=== PATIENT | male | born 1950 | race Caucasian/White ===

== ENCOUNTER 2024-02-03 21:20 | Inpatient (IN) ==
--- NOTE | 2024-02-03 22:02 | XRay Report ---
XR chest 1V portable CLINICAL HISTORY: Dyspnea TECHNIQUE: Single frontal radiograph of the chest was obtained. Comparison: Comparison is made to CT chest 12/07/2023 FINDINGS: No lines and tubes are seen. The cardiomediastinal silhouette is normal. Emphysema and interstitial t hickening are seen. Left lower lung airspace opacity seen. No evidence of pleural effusion or pneumot horax. IMPRESSION: 1. Left lower lung airspace opacity. This may represent atelectasis, pneumonia, and/or aspiration. 2. Emphysema and interstitial thickening. ACT 112: Negative or not required by law. Electronically signed by: Ad Travis M.D. 02/03/2024 10:00 PM
--- NOTE | 2024-02-03 22:15 | Emergency Department Note ---
Impression & Plan Hypoxia ADMIT ED Provider Note HPI: History obtained from patient. The patient is a 73-year-old gentleman who presents from the [facility] over concern for shortness of breath. Patient has a history of COPD, he is on 5 L nasal cannula oxygen at baseline. Patient states today he felt some increased shortness of breath and was noted to have oxygen saturations in the high 70s and therefore was sent to the ER to be assessed. Patient denies any chest pain, states he has a chronic cough, denies any recent fever. On arrival here to the ED the patient is hemodynamically stable now on 10 L oxygen mask with a saturation of 96%. Patient is afebrile on arrival, he is mildly tachycardic but arrives with stable blood pressure at 128/92, patient otherwise appears to be in no acute distress on my initial assessment. ROS: - Per HPI Differential Diagnosis: Pneumonia, COPD exacerbation, pulmonary edema, acute coronary syndrome, pulmonary embolism, amongst other potential pathologies. *Outpatient medications and allergy history reviewed. PE: General: Alert, frail-appearing, no acute distress HEENT: Normocephalic, trachea midline Eyes: Extraocular eye movement is intact, no scleral erythema Pulmonary: Diminished left-sided breath sounds with mild crackles at the left base, no wheezing Cardio: Regular rate and rhythm GI: Abdomen is soft to palpation : No suprapubic tenderness MSK: No evidence of trauma or malformation of the extremities, no edema Skin: No evidence of rash Neuro: Alert, no focal deficits Psychiatric: Cooperative INDEPENDENT INTERPRETATIONS: patient monitor: (As interpreted by myself): - An order was placed for continuous cardiac monitoring - Patient was noted to be in sinus rhythm with a rate of 95 EKG: (As interpreted by myself): Rate: 112 Rhythm: Sinus tachycardia Intervals: Within normal limits ST changes: No ST elevation Time: 2144 Chest x-ray: (As interpreted by myself): Left-sided pneumonia Interventions provided in ED: -IV cefepime, IV azithromycin Medical Decision Making: IV was established and lab work obtained, patient was placed on clinical research monitor. Lab work shows a leukocytosis of 13.53, hemoglobin is stable at 13.4, platelet count is normal, CMP does not show any evidence of any critical findings, troponin is negative, venous blood gas shows slightly alkalotic pH is 7.44, pCO2 is normal. Viral panel testing was obtained and is negative I did briefly turn the patient's oxygen down to his baseline 5 L and he had a desaturation to 87% at this level, he was therefore increased again to 10 L. He was started on IV cefepime and IV azithromycin after blood cultures were drawn. Patient does have a left-sided pneumonia on chest x-ray per my interpretation. I discussed the patient's presentation with the on-call hospitalist, Dr. Lantigua, and the patient was accepted for further management on an inpatient basis. Consultants/Discussions held with other healthcare providers: -Hospitalist, Dr. Lantigua Diagnosis: 1. Hypoxia, acute 2. Left-sided pneumonia, acute 3. Leukocytosis, acute 4. 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) Medical History (Updated 02/04/24 @ 01:07 by Urban Paulson DO) GERD (gastroesophageal reflux disease) Hypothyroid Diabetes Hypertension Personal history of colonic polyps Pulmonary fibrosis Vitamin D deficiency Surgical History (Updated 02/04/24 @ 00:47 by Daylin Lantigua DO) History of hernia repair History of cholecystectomy Family History (Updated 02/04/24 @ 00:46 by Daylin Lantigua DO) Brother Cancer Lung cancer Mother Cancer Breast cancer Social History Smoking Status: Former smoker Tobacco Type: Cigarettes Age Started Using Tobacco: 8; Age Quit Using Tobacco: 65; packs per day: 2; Second Hand Exposure: Yes; Preferred Language: Welsh Feels Safe at Home: Yes Allergies Allergies Allergy/AdvReac Type Severity Reaction Status Date / Time NKDA Allergy 0 Uncoded 02/03/24 22:50 Home Meds Home Medications Medication Instructions Recorded Confirmed albuterol sulfate 90 mcg/actuation 2 puff inhalation QID PRN 02/03/24 02/03/24 aerosol inhaler Shortness Of Breath Or Wheezing amlodipine 10 mg tablet 10 mg PO DAILY 02/03/24 02/03/24 cholecalciferol (vitamin D3) 25 50 mcg PO DAILY 02/03/24 02/03/24 mcg (1,000 unit) capsule (Vitamin D3) docusate sodium 100 mg capsule 100 mg PO BID 02/03/24 02/03/24 fluticasone 500 mcg-salmeterol 50 1 inh inhalation BID 02/03/24 02/03/24 mcg/dose blistr powdr for inhalation (Wixela Inhub) glipizide 10 mg tablet 10 mg PO BID 02/03/24 02/03/24 guaifenesin 400 mg tablet 400 mg PO TID 02/03/24 02/03/24 ibuprofen 600 mg tablet 600 mg PO TID PRN Pain 02/03/24 02/03/24 levothyroxine 88 mcg tablet 88 mcg PO DAILY 02/03/24 02/03/24 metformin 850 mg tablet 850 mg PO BID 02/03/24 02/03/24 omeprazole 20 mg tablet,delayed 20 mg PO DAILY 02/03/24 02/03/24 release oxycodone 5 mg tablet 10 mg PO TID 02/03/24 02/03/24 rosuvastatin 10 mg tablet 10 mg PO HS 02/03/24 02/03/24 umeclidinium 62.5 mcg/actuation 1 inh inhalation DAILY 02/03/24 02/03/24 blister powder for inhalation (Incruse Ellipta) Results & Data (ED) Vital Signs Vital Signs - 24 hr 02/03/24 21:29 02/03/24 21:30 02/03/24 21:30 Temperature 37.3 C Temperature Source Oral Pulse Rate Pulse Rate [Apical] 118 H Respiratory Rate 18 Respiratory Effort / Characteristics Short of Breath Blood Pressure Blood Pressure [Right Arm] 128/92 Blood Pressure Mean Blood Pressure Mean [Right Arm] 104 Pulse Oximetry 95 Oxygen Delivery Method Non-rebreather Non-rebreather Oxygen Flow Rate 15 Sepsis Recent Fever Within 48 Hours No Sepsis New/Unexplained Change in Mental Status No Sepsis Action Taken by Nursing No Action Required 02/03/24 21:30 02/03/24 21:44 02/03/24 21:55 Temperature Temperature Source Pulse Rate 110 H 108 H Pulse Rate [Apical] Respiratory Rate 18 Respiratory Effort / Characteristics Blood Pressure Blood Pressure [Right Arm] Blood Pressure Mean Blood Pressure Mean [Right Arm] Pulse Oximetry 96 Oxygen Delivery Method Non-rebreather Oxymask Oxygen Flow Rate 10 Sepsis Recent Fever Within 48 Hours Sepsis New/Unexplained Change in Mental Status Sepsis Action Taken by Nursing 02/03/24 23:00 02/03/24 23:23 Temperature Temperature Source Pulse Rate 106 H Pulse Rate [Apical] 105 H Respiratory Rate 18 19 Respiratory Effort / Characteristics Blood Pressure 128/90 Blood Pressure [Right Arm] 128/90 Blood Pressure Mean 100 Blood Pressure Mean [Right Arm] 102 Pulse Oximetry 90 91 Oxygen Delivery Method Oxymask Oxymask Oxygen Flow Rate 10 10 Sepsis Recent Fever Within 48 Hours Sepsis New/Unexplained Change in Mental Status Sepsis Action Taken by Nursing Laboratory Data 02/03/24 22:00 02/03/24 22:00 Lab Results 02/03/24 02/03/24 02/03/24 Range/Units 21:30 22:00 22:50 WBC 13.53 H (4.8-10.8) K/ul RBC 4.43 L (4.70-6.10) M/uL Hgb 13.4 L (14.0-18.0) g/dl Hct 39.1 L (42.0-52.0) % MCV 88.3 (80.0-100.0) fL MCH 30.2 (25.0-34.0) pg MCHC 34.3 (32.0-36.0) g/dL RDW Std Deviation 43.2 (36.4-46.3) fL RDW Coeff of Chevy 13.3 (11.5-14.5) % Plt Count 360 (130-400) K/uL MPV 10.1 (9.4-12.4) fL Immature Gran % (Auto) 0.4 % Neut % (Auto) 71.6 % Lymph % (Auto) 13.8 % Wells % (Auto) 7.5 % Eos % (Auto) 6.3 % Baso % (Auto) 0.4 % Neut # (Auto) 9.68 H (1.40-6.50) K/uL Lymph # (Auto) 1.87 (1.20-3.40) K/uL Wells # (Auto) 1.02 H (0.11-0.59) K/uL Eos # (Auto) 0.85 H (0.00-0.50) K/uL Baso # (Auto) 0.06 (0.00-0.20) K/uL Immature Gran # (Auto) 0.05 (0.01-0.20) K/uL VBG pH 7.44 H (7.36-7.41) VBG pCO2 43 (38-50) mmHg VBG pO2 50 mmHg VBG HCO3 29 mmol/L VBG O2 Saturation 83.2 % VBG Base Excess 4.4 mEq/L Sodium 138 (136-145) mmol/L Potassium 3.5 (3.5-5.1) mmol/L Chloride 102 (98-107) mmol/L Carbon Dioxide 26 (21-32) mmol/L Anion Gap 10 (3-11) BUN 18 (6-23) mg/dl Creatinine 0.97 (0.6-1.4) mg/dl Est Cr Clr Drug Dosing 67.8 ml/min Est GFR ( Amer) 89.4 ml/min Est GFR (Non-Af Amer) 77.1 ml/min BUN/Creatinine Ratio 18.6 (10-20) Glucose 106 H (70-99(Fasting)) mg/dl Calcium 8.8 (8.6-10.3) mg/dl Total Bilirubin 0.4 (0.2-1.0) mg/dl AST 24 (13-39) U/L ALT 22 (7-52) U/L Alkaline Phosphatase 321 H (34-104) U/L Troponin I High Sens 7.4 (0-20) pg/ml Total Protein 6.8 (6.0-8.3) gm/dl Albumin 3.7 (3.4-5.0) gm/dl Globulin 3.1 (2.5-4.0) gm/dl Albumin/Globulin Ratio 1.2 (0.9-2) Adenovirus (PCR) Not Detected (NotDetected) B. pertussis DNA (PCR) Not Detected (NotDetected) B.parapertussis DNA PCR Not Detected (NotDetected) C. pneumoniae DNA (PCR) Not Detected (NotDetected) Coronavirus OC43 (PCR) Not Detected (NotDetected) Coronavirus HKU1 (PCR) Not Detected (NotDetected) Coronavirus 229E (PCR) Not Detected (NotDetected) SARS-CoV-2 (PCR) Not Detected (NotDetected) Coronavirus NL63 (PCR) Not Detected (NotDetected) Human Metapneumovir PCR Not Detected (NotDetected) Influenza Type A (PCR) Not Detected (NotDetected) Influenza Type B (PCR) Not Detected (NotDetected) M. pneumoniae (PCR) Not Detected (NotDetected) Parainfluenza 1 (PCR) Not Detected (NotDetected) Parainfluenza 2 (PCR) Not Detected (NotDetected) Parainfluenza 3 (PCR) Not Detected (NotDetected) Parainfluenza 4 (PCR) Not Detected (NotDetected) RSV (PCR) Not Detected (NotDetected) Entero/Rhino (PCR) Not Detected (NotDetected) Administered Medications Azithromycin 500 mg/ Dextrose 255 mls @ 125 mls/hr IV NOW ONE Stop: 02/04/24 01:14 Last Admin: 02/03/24 23:44 Dose: 125 mls/hr Documented By: TIFFANIE Discontinued Medications Cefepime HCl 1,000 mg/ Syringe 10 mls @ 5 mls/min IV NOW STA; Protocol Stop: 02/03/24 22:14 Last Admin: 02/03/24 22:48 Dose: 5 mls/min Documented By: JOSE DE JESUS Imaging Data Radiologist's Impression: Chest X-Ray 02/03/24 21:35 XR chest 1V portable CLINICAL HISTORY: Dyspnea TECHNIQUE: Single frontal radiograph of the chest was obtained. Comparison: Comparison is made to CT chest 12/07/2023 FINDINGS: No lines and tubes are seen. The cardiomediastinal silhouette is normal. Emphysema and interstitial thickening are seen. Left lower lung airspace opacity seen. No evidence of pleural effusion or pneumothorax. IMPRESSION: 1. Left lower lung airspace opacity. This may represent atelectasis, pneumonia, and/or aspiration. 2. Emphysema and interstitial thickening. ACT 112: Negative or not required by law. Electronically signed by: Ad Travis M.D. 02/03/2024 10:[address] 02/03/24 23:38 Exam(s): CT CHEST Without Contrast EXAM: CT Chest Without Intravenous Contrast CLINICAL HISTORY: Pneumonia. TECHNIQUE: Axial computed tomography images of the chest without intravenous contrast. CTDI is 27.25 mGy and DLP is 532.98 mGy-cm. Automated exposure control was utilized for the study. A dose lowering technique was utilized adhering to the principles of ALARA. COMPARISON: CT chest 12/07/2023 FINDINGS: Lungs: Diffuse airspace opacities throughout the left lung and to a lesser degree right upper lobe are concerning for multifocal pneumonia and/or aspiration. Marked emphysema. Pleural space: Small left pleural effusion. No pneumothorax. Heart: Coronary artery calcifications are present. No cardiomegaly. No significant pericardial effusion. Bones/joints: Diffuse osseous metastases are present. Chronic right rib fractures. No dislocation. No evidence of acute fracture. Soft tissues: Unremarkable. Vasculature: Minimal atherosclerosis. Lymph nodes: Unremarkable. No enlarged lymph nodes. Liver: Hepatic metastases are noted. IMPRESSION: 1. Diffuse airspace opacities throughout the left lung and to a lesser degree right upper lobe are concerning for multifocal pneumonia and/or aspiration. 2. Small left pleural effusion. 3. Marked emphysema. 4. Diffuse osseous and hepatic metastases have worsened since the previous examination. Electronically signed by: Sarah Laguerre MD 02/04/24 00:55 AM Discharge Plan Visit Data Chief Complaint: Shortness of Breath/Dyspnea Stated Complaint: ABDOMINAL PAIN ED Provider: Urban Paulson Discharge Problem: Hypoxia Forms Stand Alone Forms: [facility] Prescriptions Prescriptions: No Action glipizide 10 mg Tablet 10 mg PO BID metformin 850 mg Tablet 850 mg PO BID levothyroxine 88 mcg Tablet 88 mcg PO DAILY amlodipine 10 mg Tablet 10 mg PO DAILY fluticasone propion-salmeterol [Wixela Inhub] 500-50 mcg/dose Blister With Device 1 inh INHALATION BID docusate sodium 100 mg Capsule 100 mg PO BID ibuprofen 600 mg Tablet 600 mg PO TID PRN (Reason: Pain) albuterol sulfate 90 mcg/actuation Hfa Aerosol Inhaler 2 puff INHALATION QID PRN (Reason: Shortness Of Breath Or Wheezing) oxycodone 5 mg Tablet 10 mg PO TID cholecalciferol (vitamin D3) [Vitamin D3] 25 mcg (1,000 unit) Capsule 50 mcg PO DAILY guaifenesin 400 mg Tablet 400 mg PO TID rosuvastatin 10 mg Tablet 10 mg PO HS omeprazole 20 mg Tablet,Delayed Release (Dr/Ec) 20 mg PO DAILY Incruse Ellipta 62.5 mcg/actuation Blister With Device 1 inh INHALATION DAILY Referrals Referrals: Aletha PENG [Primary Care Provider] -
[2024-02-03 22:28] LABS: Basophils # (auto) 0.06 K/uL (0.00-0.20); Basophils % (auto) 0.4 %; Eosinophils # (auto) 0.85 K/uL (0.00-0.50); Eosinophils % (auto) 6.3 %; Hematocrit (blood only) 39.1 % (42.0-52.0); Hemoglobin 13.4 g/dl (14.0-18.0); Immature Granulocytes # (auto) 0.05 K/uL (0.01-0.20); Immature Granulocytes % (auto) 0.4 %; Lymphocytes # (auto) 1.87 K/uL (1.20-3.40); Lymphocytes % (auto) 13.8 %; Mean Corpuscular Hemoglobin 30.2 pg (25.0-34.0); Mean Corpuscular Hgb Conc 34.3 g/dL (32.0-36.0); Mean Corpuscular Volume 88.3 fL (80.0-100.0); Mean Platelet Volume 10.1 fL (9.4-12.4); Monocytes # (auto) 1.02 K/uL (0.11-0.59); Monocytes % (auto) 7.5 %; Neutrophils # (auto) 9.68 K/uL (1.40-6.50); Neutrophils % (auto) 71.6 %; Platelet Count 360 K/uL (130-400); RDW Coefficient of Variation 13.3 % (11.5-14.5); RDW Standard Deviation 43.2 fL (36.4-46.3); Red Blood Count 4.43 M/uL (4.70-6.10); White Blood Count 13.53 K/ul (4.8-10.8)
[2024-02-03 22:47] LABS: Albumin Globulin Ratio 1.2 (0.9-2); Albumin Level 3.7 gm/dl (3.4-5.0); BUN Creatinine Ratio 18.6 (10-20); Bilirubin,Total 0.4 mg/dl (0.2-1.0); Calcium 8.8 mg/dl (8.6-10.3); Creatinine Clr Calc Pharmacy 67.8 ml/min; Est GFR (African American) 89.4 ml/min; Est GFR (Non-African American) 77.1 ml/min; Globulin 3.1 gm/dl (2.5-4.0); Potassium 3.5 mmol/L (3.5-5.1); Total Protein 6.8 gm/dl (6.0-8.3)
[2024-02-03] MEDS: CEFEPIME 1,000 MG in SYRINGE 0 ML IV STA (22:48)
[2024-02-03 22:52] LABS: Troponin I High Sensitivity 7.4 pg/ml (0-20)
[2024-02-03 23:04] LABS: Adenovirus PCR Not Detected (NotDetected); Bordetella parapertussis PCR Not Detected (NotDetected); Bordetella pertussis PCR Not Detected (NotDetected); Chlamydia pneumoniae PCR Not Detected (NotDetected); Coronavirus 229E PCR Not Detected (NotDetected); Coronavirus CoV-2 (COVID19)PCR Not Detected (NotDetected); Coronavirus HKU1 PCR Not Detected (NotDetected); Coronavirus NL63 PCR Not Detected (NotDetected); Coronavirus OC43PCR Not Detected (NotDetected); Human Metapneumovirus PCR Not Detected (NotDetected); Influenza A PCR Not Detected (NotDetected); Influenza B PCR Not Detected (NotDetected); Mycoplasma pneumoniae PCR Not Detected (NotDetected); Parainfluenza Virus 1 PCR Not Detected (NotDetected); Parainfluenza Virus 2 PCR Not Detected (NotDetected); Parainfluenza Virus 3 PCR Not Detected (NotDetected); Parainfluenza Virus 4 PCR Not Detected (NotDetected); Respiratory Syncytial VirusPCR Not Detected (NotDetected); Rhinovirus/Enterovirus PCR Not Detected (NotDetected)
[2024-02-03 23:09] LABS: Base Excess VBG 4.4 mEq/L; HCO3 VBG 29 mmol/L; Oxygen Saturation VBG 83.2 %; PCO2 VBG 43 mmHg (38-50); PO2 VBG 50 mmHg; pH VBG 7.44 (7.36-7.41)
--- NOTE | 2024-02-03 23:39 | History & Physical Report ---
Date of Service February 03, 2024 Assessment & Plan (1) Acute and chronic respiratory failure with hypoxia: Plan: -Check BNP, Mg, PO4 and Procalcitonin -Humidify O2 -IS and Flutter valve -Guaifenesin 1200mg po BID -Await formal read on CT chest - possible Pulmonary consultation pending results -Continue supplemental O2 - goal saturation 88-92% -DuoNeb q4R -Continue Albuterol PRN -Continue Advair 500/50 BID -Continue Umeclidinium (2) Pneumonia: Plan: Likely contributing to patient's acutely worsening respiratory status. Very little pulmonary reserve. He is afebrile and acutely non-toxic in appearance. Does have leukocytosis with WBC=13.5. Was elevated in the past as well. Elevated neutrophils and eosinophils. -Follow cultures sent from ER -Follow formal CT reading -Azithromycin and Cefepime -Check MRSA nares Plan Hypertension - blood pressure adequately controlled -Continue Amlodipine 10mg po daily Hypothyroidism - chronic. stable -Continue home Synthroid 88mcg DM -Hold home Metformin and Glipizide -ISS -Goal blood sugar 110 - 140 GERD - chronic, stable -Protonix 40mg po daily while admitted -Resume home Omeprazole on DC F/E/N - Saline lock. Electrolytes WNL. CC diet as tolerated Ppx - Lovenox. Protonix Code - DNR/DNI per discussion with patient Dispo - Admit to PCU History of Present Illness Chief Complaint: shortness of breath, hypoxia Primary Care Provider: DANISH Pompa Rene Cronin is a 73yo male with history of COPD, Pulmonary fibrosis as well as DM, HTN, Hypothyroidism and GERD presenting with acute on chronic respiratory failure with hypoxia. Patient wears 5L of supplemental O2 by ND at baseline. He was seen in the [facility] today with complaint of cough productive for thick, white sputum and worsening shortness of breath. He denies fever, chills, orthopnea, chest pain, palpitations, edema or weight gain. He has some mid-back pain, occasionally worsened with deep breathing. Saturations reportedly 70% on 5L at [facility] which prompted him to come to the ER. Patient endorses occasional chills as well as unintentional weight loss (unable to quantify). He was told that he "has cancer somewhere" but they don't know where. He states that this is based on a blood test that was performed. Possibly a liver lesion "a shadow" but patient does not know complete details. He is to have a repeat CT scan in the coming weeks. He has been on supplemental O2 for at least 3 months. Former tobacco use - 1.5ppd x 57 years In the ER patient initially saturating well on 10L Oxymask - attempt to decrease to his baseline 5L resulted in hypoxia, sats decreased to 86% ER Course: Cefepime Allergies Allergy/AdvReac Type Severity Reaction Status Date / Time NKDA Allergy 0 Uncoded 02/03/24 22:50 Home Medications Medication Instructions Recorded Confirmed Type albuterol sulfate 90 mcg/actuation 2 puff inhalation QID PRN 02/03/24 02/03/24 History aerosol inhaler Shortness Of Breath Or Wheezing amlodipine 10 mg tablet 10 mg PO DAILY 02/03/24 02/03/24 History cholecalciferol (vitamin D3) 25 50 mcg PO DAILY 02/03/24 02/03/24 History mcg (1,000 unit) capsule (Vitamin D3) docusate sodium 100 mg capsule 100 mg PO BID 02/03/24 02/03/24 History fluticasone 500 mcg-salmeterol 50 1 inh inhalation BID 02/03/24 02/03/24 History mcg/dose blistr powdr for inhalation (Olegarioela Pernellub) glipizide 10 mg tablet 10 mg PO BID 02/03/24 02/03/24 History guaifenesin 400 mg tablet 400 mg PO TID 02/03/24 02/03/24 History ibuprofen 600 mg tablet 600 mg PO TID PRN Pain 02/03/24 02/03/24 History levothyroxine 88 mcg tablet 88 mcg PO DAILY 02/03/24 02/03/24 History metformin 850 mg tablet 850 mg PO BID 02/03/24 02/03/24 History omeprazole 20 mg tablet,delayed 20 mg PO DAILY 02/03/24 02/03/24 History release oxycodone 5 mg tablet 10 mg PO TID 02/03/24 02/03/24 History rosuvastatin 10 mg tablet 10 mg PO HS 02/03/24 02/03/24 History umeclidinium 62.5 mcg/actuation 1 inh inhalation DAILY 02/03/24 02/03/24 History blister powder for inhalation (Incruse Ellipta) Past Med/Surg History Problem List (Updated 02/04/24 @ 00:53 by Daylin Lantigua DO) Pneumonia Acute and chronic respiratory failure with hypoxia Chronic respiratory failure with hypoxia ILD (interstitial lung disease) Chronic bronchitis Exertional shortness of breath 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) Medical History (Updated 02/04/24 @ 00:53 by Daylin Lantigua DO) GERD (gastroesophageal reflux disease) Hypothyroid Diabetes Hypertension Personal history of colonic polyps Pulmonary fibrosis Vitamin D deficiency Surgical History (Updated 02/04/24 @ 00:47 by Daylin Lantigua DO) History of hernia repair History of cholecystectomy Family History (Updated 02/04/24 @ 00:46 by Daylin Lantigua DO) Brother Cancer Lung cancer Mother Cancer Breast cancer Social History Smoking Status: Former smoker Tobacco Type: Cigarettes Age Started Using Tobacco: 8; Age Quit Using Tobacco: 65; packs per day: 2; Second Hand Exposure: Yes; Preferred Language: Armenian Feels Safe at Home: Yes Review of Systems Review of Systems: All systems reviewed & are unremarkable except as noted in HPI & below Physical Exam Physical Exam: General: patient resting comfortably, NAD, non-toxic in appearance, AA&O x 4, Oxymask 10L Skin: warm, dry, intact, no rashes or lesions HEENT: NC/AT, PERRL, EOMI, anicteric sclera, conjunctiva without injection, external ear normal to inspection and nontender, nares patent, moist mucus membranes, dentition intact, no oropharyngeal lesions, neck supple, trachea midline, no LAD, no thyromegaly, no JVD Heart: +S1/S2, regular, tachycardic, no m/r/g Lungs: diminished breath sounds bilaterally, crackles present in left base, faint crackles in right base, no rhonchi or wheezes Abd: +BS, soft, NT/ND, no masses/organomegaly/ascites Ext: warm, 2+ pulses in UE/LE bilaterally, no clubbing/cyanosis or edema Neuro: nonfocal, patient AA&O x 4, speech intact, no facial droop, moving all extremities on command with equal strength 5/5 Results & Data Results & Data Vital Signs (Past 12 Hours) Vital Signs Temp Pulse Pulse Resp BP BP Pulse Ox 02/03/24 23:23 105 H 19 128/90 91 02/03/24 23:00 106 H 18 128/90 90 02/03/24 21:55 108 H 18 02/03/24 21:44 96 02/03/24 21:30 110 H 02/03/24 21:30 02/03/24 21:29 37.3 C 118 H 18 128/92 95 O2 Del Method O2 Flow Rate 02/03/24 23:23 Oxymask 10 02/03/24 23:00 Oxymask 10 02/03/24 21:55 Oxymask 10 02/03/24 21:44 Non-rebreather 02/03/24 21:30 02/03/24 21:30 Non-rebreather 02/03/24 21:29 Non-rebreather 15 Laboratory Results Laboratory Results WBC 13.53 K/ul (4.8-10.8) H 02/03/24 22:00 RBC 4.43 M/uL (4.70-6.10) L 02/03/24 22:00 Hgb 13.4 g/dl (14.0-18.0) L 02/03/24 22:00 Hct 39.1 % (42.0-52.0) L 02/03/24 22:00 MCV 88.3 fL (80.0-100.0) 02/03/24 22:00 MCH 30.2 pg (25.0-34.0) 02/03/24 22:00 MCHC 34.3 g/dL (32.0-36.0) 02/03/24 22:00 RDW Std Deviation 43.2 fL (36.4-46.3) 02/03/24 22:00 RDW Coeff of Chevy 13.3 % (11.5-14.5) 02/03/24 22:00 Plt Count 360 K/uL (130-400) 02/03/24 22:00 MPV 10.1 fL (9.4-12.4) 02/03/24 22:00 Immature Gran % (Auto) 0.4 % 02/03/24 22:00 Neut % (Auto) 71.6 % 02/03/24 22:00 Lymph % (Auto) 13.8 % 02/03/24 22:00 Cook % (Auto) 7.5 % 02/03/24 22:00 Eos % (Auto) 6.3 % 02/03/24 22:00 Baso % (Auto) 0.4 % 02/03/24 22:00 Neut # (Auto) 9.68 K/uL (1.40-6.50) H 02/03/24 22:00 Lymph # (Auto) 1.87 K/uL (1.20-3.40) 02/03/24 22:00 Cook # (Auto) 1.02 K/uL (0.11-0.59) H 02/03/24 22:00 Eos # (Auto) 0.85 K/uL (0.00-0.50) H 02/03/24 22:00 Baso # (Auto) 0.06 K/uL (0.00-0.20) 02/03/24 22:00 Immature Gran # (Auto) 0.05 K/uL (0.01-0.20) 02/03/24 22:00 VBG pH 7.44 (7.36-7.41) H 02/03/24 22:50 VBG pCO2 43 mmHg (38-50) 02/03/24 22:50 VBG pO2 50 mmHg 02/03/24 22:50 VBG HCO3 29 mmol/L 02/03/24 22:50 VBG O2 Saturation 83.2 % 02/03/24 22:50 VBG Base Excess 4.4 mEq/L 02/03/24 22:50 Sodium 138 mmol/L (136-145) 02/03/24 22:00 Potassium 3.5 mmol/L (3.5-5.1) 02/03/24 22:00 Chloride 102 mmol/L (98-107) 02/03/24 22:00 Carbon Dioxide 26 mmol/L (21-32) 02/03/24 22:00 Anion Gap 10 (3-11) 02/03/24 22:00 BUN 18 mg/dl (6-23) 02/03/24 22:00 Creatinine 0.97 mg/dl (0.6-1.4) 02/03/24 22:00 Est Cr Clr Drug Dosing 67.8 ml/min 02/03/24 22:00 Est GFR ( Amer) 89.4 ml/min 02/03/24 22:00 Est GFR (Non-Af Amer) 77.1 ml/min 02/03/24 22:00 BUN/Creatinine Ratio 18.6 (10-20) 02/03/24 22:00 Glucose 106 mg/dl (70-99(Fasting)) H 02/03/24 22:00 Calcium 8.8 mg/dl (8.6-10.3) 02/03/24 22:00 Total Bilirubin 0.4 mg/dl (0.2-1.0) 02/03/24 22:00 AST 24 U/L (13-39) 02/03/24 22:00 ALT 22 U/L (7-52) 02/03/24 22:00 Alkaline Phosphatase 321 U/L (34-104) H 02/03/24 22:00 Troponin I High Sens 7.4 pg/ml (0-20) 02/03/24 22:00 Total Protein 6.8 gm/dl (6.0-8.3) 02/03/24 22:00 Albumin 3.7 gm/dl (3.4-5.0) 02/03/24 22:00 Globulin 3.1 gm/dl (2.5-4.0) 02/03/24 22:00 Albumin/Globulin Ratio 1.2 (0.9-2) 02/03/24 22:00 Adenovirus (PCR) Not Detected (NotDetected) 02/03/24 21:30 B. pertussis DNA (PCR) Not Detected (NotDetected) 02/03/24 21:30 B.parapertussis DNA PCR Not Detected (NotDetected) 02/03/24 21:30 C. pneumoniae DNA (PCR) Not Detected (NotDetected) 02/03/24 21:30 Coronavirus OC43 (PCR) Not Detected (NotDetected) 02/03/24 21:30 Coronavirus HKU1 (PCR) Not Detected (NotDetected) 02/03/24 21:30 Coronavirus 229E (PCR) Not Detected (NotDetected) 02/03/24 21:30 SARS-CoV-2 (PCR) Not Detected (NotDetected) 02/03/24 21:30 Coronavirus NL63 (PCR) Not Detected (NotDetected) 02/03/24 21:30 Human Metapneumovir PCR Not Detected (NotDetected) 02/03/24 21:30 Influenza Type A (PCR) Not Detected (NotDetected) 02/03/24 21:30 Influenza Type B (PCR) Not Detected (NotDetected) 02/03/24 21:30 M. pneumoniae (PCR) Not Detected (NotDetected) 02/03/24 21:30 Parainfluenza 1 (PCR) Not Detected (NotDetected) 02/03/24 21:30 Parainfluenza 2 (PCR) Not Detected (NotDetected) 02/03/24 21:30 Parainfluenza 3 (PCR) Not Detected (NotDetected) 02/03/24 21:30 Parainfluenza 4 (PCR) Not Detected (NotDetected) 02/03/24 21:30 RSV (PCR) Not Detected (NotDetected) 02/03/24 21:30 Entero/Rhino (PCR) Not Detected (NotDetected) 02/03/24 21:30 Impressions Chest X-Ray 02/03/24 21:35 XR chest 1V portable CLINICAL HISTORY: Dyspnea TECHNIQUE: Single frontal radiograph of the chest was obtained. Comparison: Comparison is made to CT chest 12/07/2023 FINDINGS: No lines and tubes are seen. The cardiomediastinal silhouette is normal. Emphysema and interstitial thickening are seen. Left lower lung airspace opacity seen. No evidence of pleural effusion or pneumothorax. IMPRESSION: 1. Left lower lung airspace opacity. This may represent atelectasis, pneumonia, and/or aspiration. 2. Emphysema and interstitial thickening. ACT 112: Negative or not required by law. Electronically signed by: Ad Travis M.D. 02/03/2024 10:[address] chest performed, awaiting formal read. Possibly shows bullous emphysema and fibrotic changes. ?LLL infiltrate with effusion? ECG Additional Comments: EKG with ST at 112bpm, normal axis, GY=264, QRS=76, MAr=143, no acute ischemic changes Code Status & VTE Plan VTE Prophylaxis Plan VTE Prophylaxis will be ordered: Yes PG Care Time/CCT Total # of Minutes Spent Total Time Spent with Patient: Total time spent is greater than 50% in coordination of care (as documented) at patient's floor/unit and/or counseling patient: Coding Level of Care Code 11461 INT INP/OBS CARE MIN Diagnoses Acute and chronic respiratory failure with hypoxia J96.21 Pneumonia J18.9
[2024-02-03] MEDS: AZITHROMYCIN 500 MG in DEXTROSE 5% 250 ML IV ONE (23:44)
--- NOTE | 2024-02-04 00:56 | CT Scan Report ---
Exam(s): CT CHEST Without Contrast EXAM: CT Chest Without Intravenous Contrast CLINICAL HISTORY: Pneumonia. TECHNIQUE: Axial computed tomography images of the chest without intravenous contrast. CTDI is 27.25 mGy and DLP is 532.98 mGy-cm. Automated exposure control was utilized for the study. A dose lowering technique was utilized adhering to the principles of ALARA. COMPARISON: CT chest 12/07/2023 FINDINGS: Lungs: Diffuse airspace opacities throughout the left lung and to a lesser degree right upper lobe are concerning for multifocal pneumonia and/or aspiration. Marked emphysema. Pleural space: Small left pleural effusion. No pneumothorax. Heart: Coronary artery calcifications are present. No cardiomegaly. No significant pericardial effusion. Bones/joints: Diffuse osseous metastases are present. Chronic right rib fractures. No dislocation. No evidence of acute fracture. Soft tissues: Unremarkable. Vasculature: Minimal atherosclerosis. Lymph nodes: Unremarkable. No enlarged lymph nodes. Liver: Hepatic metastases are noted. IMPRESSION: 1. Diffuse airspace opacities throughout the left lung and to a lesser degree right upper lobe are concerning for multifocal pneumonia and/or aspiration. 2. Small left pleural effusion. 3. Marked emphysema. 4. Diffuse osseous and hepatic metastases have worsened since the previous examination. Electronically signed by: Sarah Laguerre MD 02/04/24 00:55 AM
[2024-02-04] MEDS ORDERED: DEXTROSE 50% 50 ML SYRINGE IV PRN (02:11)
[2024-02-04] MEDS ORDERED: POLYETHYLENE (MIRALAX) 17 GM PACK PO PRN (02:11)
[2024-02-04] MEDS ORDERED: ACETAMINOPHEN 325 MG TAB PO PRN (02:11)
[2024-02-04] MEDS ORDERED: GLUCOSE 10 TAB/TUBE PO PRN (02:11)
[2024-02-04] MEDS ORDERED: ONDANSETRON INJ 2 MG/ML 2 ML VIAL IV PRN (02:11)
[2024-02-04] MEDS ORDERED: CARBOHYDRATES FOR HYPOGLYCEMIA PO PRN (02:11)
[2024-02-04] MEDS ORDERED: GLUCOSE 40% GEL 15 GM TUBE PO PRN (02:11)
[2024-02-04] MEDS ORDERED: GLUCAGON FOR INJ 1 MG VIAL SQ PRN (02:11)
[2024-02-04] MEDS ORDERED: ALBUTEROL HFA 8 GM INHALER INH PRN (02:11)
[2024-02-04] MEDS: ALBUT/IPRATROP 3MG/0.5MG NEB 3 ML VIAL NEB SCH (03:21)
[2024-02-04 04:58] LABS: Magnesium 0.8 mg/dl (1.7-2.4); Phosphorus 2.8 mg/dl (2.5-4.9)
[2024-02-04] MEDS: CEFEPIME 2,000 MG in SYRINGE 0 ML IV SCH (05:22)
[2024-02-04] MEDS: MAGNESIUM SULFATE / D5W 1 GM/100 ML BAG IV SCH (05:24)
[2024-02-04] MEDS: LEVOTHYROXINE SODIUM 88 MCG TABLET PO SCH (05:52)
[2024-02-04 06:30] LABS: Hemoglobin 12.3 g/dl (14.0-18.0); Mean Corpuscular Hemoglobin 30.2 pg (25.0-34.0); Mean Corpuscular Hgb Conc 34.2 g/dL (32.0-36.0); Mean Corpuscular Volume 88.5 fL (80.0-100.0); Mean Platelet Volume 10.2 fL (9.4-12.4); Platelet Count 340 K/uL (130-400); RDW Coefficient of Variation 13.2 % (11.5-14.5); RDW Standard Deviation 42.6 fL (36.4-46.3); Red Blood Count 4.07 M/uL (4.70-6.10)
[2024-02-04 06:43] LABS: Albumin Level 3.4 gm/dl (3.4-5.0); BUN Creatinine Ratio 17.8 (10-20); Bilirubin Direct 0.1 mg/dl (0-0.2); Bilirubin,Total 0.4 mg/dl (0.2-1.0); Calcium 8.5 mg/dl (8.6-10.3); Creatinine Clr Calc Pharmacy 73.1 ml/min; Est GFR (African American) 97.9 ml/min; Est GFR (Non-African American) 84.4 ml/min; Potassium 3.3 mmol/L (3.5-5.1); Total Protein 6.4 gm/dl (6.0-8.3)
[2024-02-04 06:57] LABS: Thyroid Stimulating Hormone 2.321 uIu/ml (0.300-4.500)
--- NOTE | 2024-02-04 07:09 | Electrocardiogram Report ---
Test Reason : Blood Pressure : / mmHG Vent. Rate : 112 BPM Atrial Rate : 112 BPM P-R Int : 174 ms QRS Dur : 076 ms QT Int : 324 ms P-R-T Axes : 042 013 017 degrees QTc Int : 442 ms Sinus tachycardia Poor R wave progression, consider anterior OH vs. lead placement vs. LVH Abnormal ECG No previous ECGs available Confirmed by Moi Garcia ([id number]) on 02/04/2024 7:09:10 AM Referred By: Aletha PENG Confirmed By:Nazario Garcia
--- NOTE | 2024-02-04 07:15 | Oncology Consultation ---
Date of Consultation February 04, 2024 Assessment & Plan (1) Acute and chronic respiratory failure with hypoxia: (2) Chronic respiratory failure with hypoxia: (3) Liver lesion: (4) Bone lesion: Plan Imaging suggestive of metastatic malignancy. Multiple potentialdifferentials include HCC, prostate, cholangiocarcinoma/GI malignancy. Recommend CT abdomen and pelvis and IR guided biopsy of liver lesion for diagnosis. This was discussed with patient in detail. He was interested in prognosis which I explained to him would be determined by pathology. If biopsy confirms malignancy, unfortunately he has stage IV disease for which goals of treatment would likely be palliative. -CT abdomen and pelvis -IR guided liver biopsy -Tumor markers Thank you for this consult. Oncology will follow-up on biopsy results and schedule outpatient follow-up. Please feel free to call if have any further questions History of Present Illness Reason for Consultation: Possible metastatic disease Attending Physician: Bebeto Dangelo MD History of Present Illness 73-year-old gentleman with history of COPD, pulmonary fibrosis on 5 L supplemental O2 , diabetes, hypertension, hypothyroidism who presented with shortness of breath and was found to be in acute on chronic respiratory failure. CT chest on 02/03/2024 revealed diffuse airspace opacities throughout the left lung and to a lesser degree right upper lobe concerning for multifocal pneumonia and/or aspiration, small left pleural effusion, marked emphysema, diffuse Brocious and hepatic metastasis have worsened since previous examination. Of note, he had CT chest without contrast on 12/07/2023 which was noted to have revealed 3.7 cm low-density mass in the superior aspect of the liver just under the diaphragm, 2.8 cm low-density mass in the upper pole of the left kidney possibly a cyst, bony sclerotic lesions involving T4, T5, T10, T11 and L1. Oncology was consulted for possible metastatic disease Endorses shortness of breath and cough. Also complains of weight loss. Mother had breast cancer in her 60s and brother who was a smoker had lung cancer. Patient is a former smoker but has close 100 pack years history of smoking Allergies Allergy/AdvReac Type Severity Reaction Status Date / Time No Known Allergies Allergy Verified 02/04/24 02:17 Home Medications Medication Instructions Recorded Confirmed Type albuterol sulfate 90 mcg/actuation 2 puff inhalation QID PRN 02/03/24 02/03/24 History aerosol inhaler Shortness Of Breath Or Wheezing amlodipine 10 mg tablet 10 mg PO DAILY 02/03/24 02/03/24 History cholecalciferol (vitamin D3) 25 50 mcg PO DAILY 02/03/24 02/03/24 History mcg (1,000 unit) capsule (Vitamin D3) docusate sodium 100 mg capsule 100 mg PO BID 02/03/24 02/03/24 History fluticasone 500 mcg-salmeterol 50 1 inh inhalation BID 02/03/24 02/03/24 History mcg/dose blistr powdr for inhalation (Wixela Inhub) glipizide 10 mg tablet 10 mg PO BID 02/03/24 02/03/24 History guaifenesin 400 mg tablet 400 mg PO TID 02/03/24 02/03/24 History ibuprofen 600 mg tablet 600 mg PO TID PRN Pain 02/03/24 02/03/24 History levothyroxine 88 mcg tablet 88 mcg PO DAILY 02/03/24 02/03/24 History metformin 850 mg tablet 850 mg PO BID 02/03/24 02/03/24 History omeprazole 20 mg tablet,delayed 20 mg PO DAILY 02/03/24 02/03/24 History release oxycodone 5 mg tablet 10 mg PO TID 02/03/24 02/03/24 History rosuvastatin 10 mg tablet 10 mg PO HS 02/03/24 02/03/24 History umeclidinium 62.5 mcg/actuation 1 inh inhalation DAILY 02/03/24 02/03/24 History blister powder for inhalation (Incruse Ellipta) Patient History Medical History (Updated 02/04/24 @ 08:57 by Jacque Ribera MD) GERD (gastroesophageal reflux disease) Hypothyroid Diabetes Hypertension Personal history of colonic polyps Pulmonary fibrosis Vitamin D deficiency Surgical History (Updated 02/04/24 @ 00:47 by Daylin Lantigua DO) History of hernia repair History of cholecystectomy Family History (Updated 02/04/24 @ 00:46 by Daylin Lantigua DO) Brother Cancer Lung cancer Mother Cancer Breast cancer Social History Smoking Status: Former smoker Tobacco Type: Cigarettes Age Started Using Tobacco: 8; Age Quit Using Tobacco: 65; packs per day: 2; Second Hand Exposure: No; Do You Dip or Chew Tobacco: No; Hx Alcohol Use: No Hx Substance Use: No Preferred Language: Mohawk [employer] Director Required: No Beliefs That Will Affect Care: None Current Living Situation: Other Current Living Situation Comment: skilled nursing Feels Safe at Home: Yes Results & Data Vital Signs (Past 12 Hours) Vital Signs Temp Pulse Pulse Resp BP BP Pulse Ox 02/04/24 03:34 100 H 18 91 02/04/24 02:13 36.3 C L 106 H 24 141/77 H 88 L 02/04/24 01:53 110 H 02/04/24 01:45 02/04/24 01:45 36.3 C L 106 H 22 141/77 H 88 L 02/04/24 01:21 98 H 18 134/94 92 02/04/24 00:36 105 H 18 90 02/04/24 00:24 105 H 19 91 02/03/24 23:23 105 H 19 128/90 91 02/03/24 23:00 106 H 18 128/90 90 02/03/24 21:55 108 H 18 02/03/24 21:44 96 02/03/24 21:30 110 H 02/03/24 21:30 02/03/24 21:29 37.3 C 118 H 18 128/92 95 O2 Del Method O2 Flow Rate 02/04/24 03:34 Oxymask 02/04/24 02:13 Oxymask 02/04/24 01:53 02/04/24 01:45 Oxymask 02/04/24 01:45 Oxymask 02/04/24 01:21 Oxymask 02/04/24 00:36 Oxymask 02/04/24 00:24 Oxymask 10 02/03/24 23:23 Oxymask 10 02/03/24 23:00 Oxymask 10 02/03/24 21:55 Oxymask 02/03/24 21:44 Non-rebreather 02/03/24 21:30 02/03/24 21:30 Non-rebreather 02/03/24 21:29 Non-rebreather 15
--- NOTE | 2024-02-04 08:05 | Hospitalist Progress Note ---
Date of Service February 04, 2024 Assessment & Plan (1) Acute and chronic respiratory failure with hypoxia: Plan: imaging architecture of lung suggests baseline COPD, multifocal pneumonia and probable metastatic cancer pt with history of Idiopathic pulmonary fiborosis with restrictive PFT per half-way records there is a liver lesion and possible need for pulmonary evaluation as we do not yet have a tissue diagnosis -Guaifenesin 1200mg po BID -Continue supplemental O2 - goal saturation 88-92% -DuoNeb q4R -Continue Albuterol PRN -Continue Advair 500/50 BID -Continue Umeclidinium (2) Pneumonia: Plan: Multifocal pneumonia, concern for post obstructive, gram negative pneumonia CT suggest metastatic disease progressed from outpt CT of 12/07/23 including skeletal and liver mets -Follow cultures sent from ER -Azithromycin and Cefepime -negative MRSA nares Plan Hypertension - blood pressure adequately controlled -Continue Amlodipine 10mg po daily Hypothyroidism - chronic. stable -Continue home Synthroid 88mcg DM -Hold home Metformin and Glipizide -ISS -Goal blood sugar 110 - 140 GERD - chronic, stable -Protonix 40mg po daily while admitted -Resume home Omeprazole on DC Ppx - Lovenox. Protonix Code - DNR/DNI per discussion with patient Admission and Anticipated Discharge Date Admission Date: February 03, 2024 Subjective Visit the patient is currently on 10 L of nasal cannula oxygen Interviewed about his health problems he states that he was told in November that he might have cancer but they are not sure where it came from. He saw a telle oncologist at the present who also said he might have cancer not sure where it came from. He was aware of possible masses in his lungs and liver but currently on this admission he was told he might have bony metastasis and this was new to him. He denies significant bone pain. Patient states that he has had COPD for a long period of time but in October of this year he became more short of breath and went to the half-way was placed on oxygen and eventually had a CT scan which is included in the record with concerns for malignancy. He currently presents with increasing oxygen need and shortness of breath. Currently has a nonproductive cough Physical Exam Physical Exam: Patient has poor air movement bilaterally with no wheezes there is dullness at bilateral bases possibly consistent with pleural effusions Abdomen is without hepatomegaly soft and nontender He has no particular bone pain to palpation Card exam is regular Results & Data Results & Data Vital Signs (Past 12 Hours) Vital Signs Temp Pulse Pulse Resp BP BP Pulse Ox 02/04/24 07:54 97.7 F 93 H 20 126/75 92 02/04/24 03:34 100 H 18 91 02/04/24 02:13 97.3 F L 106 H 24 141/77 H 88 L 02/04/24 01:53 110 H 02/04/24 01:45 02/04/24 01:45 97.3 F L 106 H 22 141/77 H 88 L 02/04/24 01:21 98 H 18 134/94 92 02/04/24 00:36 105 H 18 90 02/04/24 00:24 105 H 19 91 02/03/24 23:23 105 H 19 128/90 91 02/03/24 23:00 106 H 18 128/90 90 02/03/24 21:55 108 H 18 02/03/24 21:44 96 02/03/24 21:30 110 H 02/03/24 21:30 02/03/24 21:29 99.1 F 118 H 18 128/92 95 O2 Del Method O2 Flow Rate 02/04/24 07:54 High Flow Nasal Cannula 15 02/04/24 03:34 Oxymask 10 02/04/24 02:13 Oxymask 10 02/04/24 01:53 02/04/24 01:45 Oxymask 10 02/04/24 01:45 Oxymask 10 02/04/24 01:21 Oxymask 10 02/04/24 00:36 Oxymask 10 02/04/24 00:24 Oxymask 10 02/03/24 23:23 Oxymask 10 02/03/24 23:00 Oxymask 10 02/03/24 21:55 Oxymask 10 02/03/24 21:44 Non-rebreather 02/03/24 21:30 02/03/24 21:30 Non-rebreather 02/03/24 21:29 Non-rebreather 15 Laboratory Results Reviewed CBC reviewed chemistry PG Care Time/CCT Total # of Minutes Spent Total Time Spent with Patient: Total time spent is greater than 50% in coordination of care (as documented) at patient's floor/unit and/or counseling patient: Coding Level of Care Code 87592 SUB INP/OBS CARE 3/50MIN Diagnoses Acute and chronic respiratory failure with hypoxia J96.21 Pneumonia J18.9
[2024-02-04] MEDS: INSULIN ASPART PER UNIT CHARGE SC SCH (08:37)
[2024-02-04] MEDS: POTASSIUM CHLORIDE CRTAB 20 MEQ TABCR PO STA (08:40)
[2024-02-04] MEDS: DOCUSATE SODIUM 100 MG CAP PO SCH (08:41)
[2024-02-04] MEDS: PANTOprazole 40 MG TAB PO SCH (08:41)
[2024-02-04] MEDS: amLODIPine BESYLATE 5 MG TAB PO SCH (08:41)
[2024-02-04] MEDS: guaiFENesin 600 MG TABCR PO SCH (08:41)
[2024-02-04] MEDS: UMECLIDINIUM BROMIDE 62.5MCG/BLISTER 7 PUFFS/INHALER INH SCH (08:42)
[2024-02-04] MEDS: FLUTICASONE/VILANTEROL 200/25MCG 14 PUFFS/INHALER INH SCH (08:42)
[2024-02-04] MEDS: ENOXAPARIN INJ 40 MG/0.4 ML SYR SQ SCH (08:43)
[2024-02-04] MEDS: OPTIRAY 320 100ml IV ONE (09:08)
[2024-02-04] MEDS: AZITHROMYCIN 250 MG in DEXTROSE 5% 250 ML IV SCH (09:32)
[2024-02-04] MEDS: POTASSIUM CHLORIDE CRTAB 20 MEQ TABCR PO SCH (09:50)
[2024-02-04] MEDS: oxyCODONE HCL IR 5 MG TAB (IMMEDIATE RELEASE) PO SCH (09:50)
--- NOTE | 2024-02-04 20:02 | CT Scan Report ---
CT SCAN OF THE ABDOMEN AND PELVIS WITH IV CONTRAST CLINICAL HISTORY: Metastatic survey. Hepatic and osseous lesions. COMPARISON STUDY: Chest CT performed the same day 02/04/2024. TECHNIQUE: Following the IV administration of 94 cc of Optiray 320, CT scan of the abdomen and pelvi s is performed from the lung bases to the proximal femora. Images are reviewed in the axial, sagittal , and coronal planes. IV contrast was administered without complication. Oral contrast was utilized. A dose lowering technique was utilized adhering to the principles of ALARA. CT DOSE: 1002.41 mGy.cm FINDINGS: Lung bases: The heart is normal in size and without pericardial effusion. The coronary arteries are d ensely calcified. Mediastinal and hilar lymphadenopathy is partially visualized. A right hilar node m easures 2.0 x 1.6 cm. A subcarinal node measures 3.0 x 2.2 cm. Advanced emphysematous change is obser natalie. There is a small to moderate left pleural effusion. Airspace consolidation is seen throughout th e left lower lung. Fibrotic change is noted at the right lung base. A 1.5 cm irregular opacity in the right lower lobe as seen on image #8. Liver: The contrast-enhanced liver is normal in size, contour, and attenuation. There is no intrahepa tic biliary ductal dilatation. The hepatic veins and portal veins are patent. There is evidence of mu ltifocal hepatic metastatic disease, with approximately 10 lesions identified. A motor vehicle field representative left lobe lesion on image #103 measures up to 4.1 cm. A 3.5 cm right lobe cyst with a mural nodule or debr is is seen on image #45. Gallbladder: Surgically absent noting clips in the gallbladder fossa. Spleen: Normal in size and attenuation. Pancreas: Unremarkable. Adrenal glands: Unremarkable. Kidneys: The contrast enhanced kidneys are normal in size and without hydronephrosis. The kidneys enh ance symmetrically. A 3.3 cm cystic lesion is seen in the lower pole the right kidney. This appears t o contain a dependent rim of soft tissue versus internal debris as seen on image #179. A left renal c yst measures 3.1 cm. Additional subcentimeter cortical hypodensities also likely represent cysts but are too small for definitive characterization. Abdominal vasculature: There is a chronic calcification and ectasia of the abdominal aorta. An infrar enal abdominal aneurysm measures up to 3.0 cm. Bowel: There is rectosigmoid fecal retention and moderate constipation. No bowel obstruction is seen. There is moderate to advanced diverticulosis of left colon without CT evidence of acute diverticulit is. The appendix is well-visualized and normal. Peritoneum: There is no intraperitoneal free air or abdominal ascites. There is a fat-containing umbi lical hernia. There is infiltration mild nodularity of the right upper quadrant mesentery seen on bee ge #118. Lymphadenopathy: None. Pelvic viscera: The prostate gland is enlarged and heterogeneous. The bladder is distended, the wall is mildly thickened/trabeculated indicating chronic outlet obstruction. Skeletal structures: The skeletal structures are osteopenic. There is mild to moderate lumbosacral sp ondylosis. Chronic deformity and postoperative change is seen in the left proximal femur. There is ev idence of multifocal osteoblastic metastatic disease. Extensive bony lesions are seen throughout the imaged thoracolumbar spine, within the sacrum and bony pelvis, the right proximal femur comment the i nferior right scapula, and numerous bilateral ribs. There are chronic right-sided rib fractures. Ther e are mild pathologic compression deformities of T10 and L5. IMPRESSION: 1. Cardiomegaly and advanced emphysema. 2. There is a small left pleural effusion with airspace consolidation throughout the left lower lung. The appearance favors pneumonia/aspiration pneumonitis. Clinical correlation will be required and ra diographic follow-up to resolution is recommended. 3. There is nonspecific mediastinal and hilar lymphadenopathy. This could be reactive versus neoplast ic. 4. A 1.5 cm right lower lobe opacity is nonspecific and could be infectious/inflammatory versus neop lastic. Attention at follow-up is recommended. 5. There is evidence of multifocal hepatic metastatic disease. 6. There is evidence of extensive/diffuse osteoblastic metastatic disease. 7. A primary neoplasm is not clearly delineated. Prostate cancer is a differential consideration give n the degree of osteoblastic metastatic disease in a male patient. Correlate with serum PSA levels. G iven the degree of emphysema a lung cancer is also a consideration. Tissue sampling will likely be re quired for definitive characterization. 8. There is a 3.3 cm cystic lesion in the lower pole of the right kidney. This may contain a rind of abnormal soft tissue versus internal debris. Correlation with a renal ultrasound is recommended for f urther evaluation. 9. There is a 3.0 cm infrarenal abdominal aortic aneurysm. 10. Diverticulosis of the left colon without CT evidence of acute diverticulitis. 11. Pathologic fractures as above. The pathologic compression fracture of L5 appears acute to subacut e. 12. There is mild infiltration/nodularity in the right upper quadrant mesentery. This is nonspecific and may be inflammatory. Peritoneal disease is not excluded. Attention at follow-up is recommended. 13. Additional findings as above. ACT 112: Negative or not required by law. Electronically signed by: Ronnie Gómez M.D. 02/04/2024 8:01 PM
[2024-02-04] MEDS: ROSUVASTATIN CALCIUM 10 MG TAB PO SCH (20:46)
[2024-02-05 08:29] LABS: Basophils # (auto) 0.07 K/uL (0.00-0.20); Basophils % (auto) 0.6 %; Eosinophils # (auto) 0.68 K/uL (0.00-0.50); Eosinophils % (auto) 5.4 %; Hematocrit (blood only) 38.2 % (42.0-52.0); Hemoglobin 13.1 g/dl (14.0-18.0); Immature Granulocytes # (auto) 0.07 K/uL (0.01-0.20); Immature Granulocytes % (auto) 0.6 %; Lymphocytes # (auto) 1.33 K/uL (1.20-3.40); Lymphocytes % (auto) 10.5 %; Mean Corpuscular Hemoglobin 30.5 pg (25.0-34.0); Mean Corpuscular Hgb Conc 34.3 g/dL (32.0-36.0); Mean Platelet Volume 9.9 fL (9.4-12.4); Monocytes # (auto) 0.98 K/uL (0.11-0.59); Monocytes % (auto) 7.8 %; Neutrophils # (auto) 9.51 K/uL (1.40-6.50); Neutrophils % (auto) 75.1 %; Platelet Count 357 K/uL (130-400); RDW Coefficient of Variation 13.4 % (11.5-14.5); RDW Standard Deviation 43.7 fL (36.4-46.3); Red Blood Count 4.29 M/uL (4.70-6.10); White Blood Count 12.64 K/ul (4.8-10.8)
[2024-02-05 08:48] LABS: Albumin Globulin Ratio 1.2 (0.9-2); Albumin Level 3.7 gm/dl (3.4-5.0); BUN Creatinine Ratio 15.5 (10-20); Bilirubin,Total 0.4 mg/dl (0.2-1.0); Calcium 9.4 mg/dl (8.6-10.3); Creatinine Clr Calc Pharmacy 67.8 ml/min; Est GFR (African American) 89.4 ml/min; Est GFR (Non-African American) 77.1 ml/min; Globulin 3.2 gm/dl (2.5-4.0); Potassium 4.6 mmol/L (3.5-5.1); Total Protein 6.9 gm/dl (6.0-8.3)
[2024-02-05] MEDS: PNEUMOCOCCAL VACCINE (PCV20) 20-VAL CONJ-DIP CRM/PF 0.5 ML SYR IM ONE (09:19)
--- NOTE | 2024-02-05 14:04 | Hospitalist Progress Note ---
Date of Service February 05, 2024 Assessment & Plan (1) Acute and chronic respiratory failure with hypoxia: Plan: imaging of lung suggests baseline COPD, multifocal pneumonia and probable metastatic cancer pt with history of Idiopathic pulmonary fibrosis with [facility] there is a liver lesion and possible need for pulmonary evaluation as we do not yet have a tissue diagnosis, CEA is markedly elevated suggesting adenocarcinoma origin Interventional radiology will be ordered for 02/06/2024- Going to hold Lovenox in the evening of 02/04 for possible IR procedure on 02/05 this will need to be renewed as 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 I have large concerns given his oxygen that he would likely not be able to be discharged from the hospital or if able to be discharged will likely need to go to [facility]. I have not contacted the [facility] as it is the weekend and there are on-call physicians but likely this will need to be communicated to the [facility] during the week when the medical provider is present (2) Pneumonia: Plan: Multifocal pneumonia, concern for post obstructive, gram negative pneumonia CT suggest metastatic disease progressed from outpt CT of 12/07/23 including skeletal and liver mets -Follow cultures sent from ER -Azithromycin and Cefepime -negative MRSA nares Can consider pulmonary evaluation however the patient likely has tumor causing his marked hypoxia Plan Hypertension - blood pressure adequately controlled -Continue Amlodipine 10mg po daily Hypothyroidism - chronic. stable -Continue home Synthroid 88mcg DM -Hold home Metformin and Glipizide -ISS -Goal blood sugar 110 - 140 GERD - chronic, stable -Protonix 40mg po daily while admitted -Resume home Omeprazole on DC Code - DNR/DNI per discussion with patient Admission and Anticipated Discharge Date Admission Date: February 03, 2024 Subjective Visit the patient is currently on high flow nasal cannula oxygen Interviewed about his health problems he states that he was told in November that he might have cancer but they are not sure where it came from. He saw a telle oncologist at the present who also said he might have cancer not sure where it came from. He was aware of possible masses in his lungs and liver but currently on this admission he was told he might have bony metastasis and this was new to him. He denies significant bone pain. Patient states that he has had COPD for a long period of time but in October of this year he became more short of breath and went to the jail was placed on oxygen and eventually had a CT scan which is included in the record with concerns for malignancy. He currently presents with increasing oxygen need and shortness of breath. Patient was informed that his tumor markers are high and he likely has cancer is informed that we will try to pursue a liver mass biopsy on 02/05. Physical Exam Physical Exam: Patient has poor air movement bilaterally with no wheezes there is dullness at bilateral bases possibly consistent with pleural effusions Abdomen is without hepatomegaly soft and nontender He has no particular bone pain to palpation Card exam is regular Results & Data Results & Data Vital Signs (Past 12 Hours) Vital Signs Temp Pulse Pulse Resp BP Pulse Ox O2 Del Method 02/05/24 12:31 97.7 F 115 H 20 110/60 90 Oxymask 02/05/24 11:25 112 H 20 90 Nasal Cannula 02/05/24 08:06 97.9 F 99 H 22 126/80 91 Nebulizer 02/05/24 08:00 High Flow Nasal Cannula 02/05/24 07:44 108 H 20 90 Nasal Cannula 02/05/24 07:13 102 H 02/05/24 04:15 92 High Flow Nasal Cannula 02/05/24 03:46 119 H 19 92 High Flow Nasal Cannula 02/05/24 03:13 98.6 F 115 H 24 151/74 H 89 L High Flow Nasal Cannula O2 Flow Rate 02/05/24 12:31 15 02/05/24 11:25 13 02/05/24 08:06 02/05/24 08:00 13 02/05/24 07:44 12 02/05/24 07:13 02/05/24 04:15 12 02/05/24 03:46 14 02/05/24 03:13 Laboratory Results Reviewed CBC reviewed chemistry reviewed CEA greater than 850 Reviewed low magnesium and ordered repletion PG Care Time/CCT Total # of Minutes Spent Total Time Spent with Patient: Total time spent is greater than 50% in coordination of care (as documented) at patient's floor/unit and/or counseling patient: Coding Level of Care Code 30256 SUB INP/OBS CARE 350MIN Diagnoses Acute and chronic respiratory failure with hypoxia J96.21 Pneumonia J18.9
[2024-02-05] MEDS: MAGNESIUM SULFATE / D5W 1 GM/100 ML BAG IV ONE (15:06)
[2024-02-06 06:55] LABS: Partial Thromboplastin Time 27 Seconds (21-31); Prothrombin Time 11.1 Seconds (9.0-12.0)
[2024-02-06 08:57] LABS: Albumin Level 3.7 gm/dl (3.4-5.0); Bilirubin,Total 0.3 mg/dl (0.2-1.0)
[2024-02-06 09:03] LABS: Total Protein 7.1 gm/dl (6.0-8.3)
--- NOTE | 2024-02-06 09:57 | Hospitalist Progress Note ---
Date of Service February 06, 2024 Assessment & Plan (1) Acute and chronic respiratory failure with hypoxia: Plan: imaging of lung suggests baseline COPD, multifocal pneumonia and probable metastatic cancer pt with history of Idiopathic pulmonary fibrosis with restrictive PFT per retirement records there is a liver lesion and possible need for pulmonary evaluation as we do not yet have a tissue diagnosis, CEA is markedly elevated suggesting adenocarcinoma origin Interventional radiology will be ordered for 02/06/2024- Going to hold Lovenox in the evening of 02/04 for possible IR procedure on 02/05 this will need to be renewed as 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 Patient declined. Given concern for hypoxia, unsure of patient's disposition. Will contact [facility] and will also consult pulmonary for possible thoracocenthesis. (2) Pneumonia: Plan: Multifocal pneumonia, concern for post obstructive, gram negative pneumonia CT suggest metastatic disease progressed from outpt CT of 12/07/23 including skeletal and liver mets -Follow cultures sent from ER -Azithromycin and Cefepime -negative MRSA nares Consult pulmonary, plan for possible thoracocenthesis. However patient likely has tumor causing his marked hypoxia Plan Hypertension - blood pressure adequately controlled -Continue Amlodipine 10mg po daily Hypothyroidism - chronic. stable -Continue home Synthroid 88mcg DM -Hold home Metformin and Glipizide -ISS -Goal blood sugar 110 - 140 GERD - chronic, stable -Protonix 40mg po daily while admitted -Resume home Omeprazole on DC Code - DNR/DNI per discussion with patient Admission and Anticipated Discharge Date Admission Date: February 03, 2024 Subjective 73 yo male reports feeling comfortable. He reports being worried if he is dying from this. he also is wondering if this is cancer. He hopes he can get better. He would like to get a diagnosis. Review of Systems Review of Systems: All systems reviewed & are unremarkable except as noted in HPI & below Physical Exam Physical Exam: Patient has poor air movement bilaterally with no wheezes there is dullness at bilateral bases possibly consistent with pleural effusions Abdomen is without hepatomegaly soft and nontender He has no particular bone pain to palpation Card exam is regular Results & Data Results & Data Vital Signs (Past 12 Hours) Vital Signs Temp Pulse Pulse Resp BP Pulse Ox O2 Del Method 02/06/24 08:09 36.6 C 89 19 123/72 91 High Flow Nasal Cannula 02/06/24 07:56 89 16 93 Nasal Cannula 02/06/24 07:06 Oxymask 02/06/24 07:00 103 H 02/06/24 03:04 36.5 C 108 H 22 137/96 96 High Flow Nasal Cannula 02/06/24 03:01 109 H 18 94 Oxymask 02/05/24 23:01 37.0 C 133 H 21 125/81 93 High Flow Nasal Cannula 02/05/24 22:43 120 H 20 93 Oxymask 02/05/24 22:09 140 H O2 Flow Rate 02/06/24 08:09 15 02/06/24 07:56 13 02/06/24 07:06 13 02/06/24 07:00 02/06/24 03:04 15 02/06/24 03:01 15 02/05/24 23:01 15 02/05/24 22:43 15 02/05/24 22:09 PG Care Time/CCT Total # of Minutes Spent Total Time Spent with Patient: Total time spent is greater than 50% in coordination of care (as documented) at patient's floor/unit and/or counseling patient: Coding Level of Care Code 86031 SUB INP/OBS CARE 2/35MIN Diagnoses Acute and chronic respiratory failure with hypoxia J96.21 Pneumonia J18.9
--- NOTE | 2024-02-06 10:49 | Pulmonary Consultation ---
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): (8) Exertional shortness of breath: (9) Pleural effusion: Plan -- Acute on chronic hypoxic respiratory failure Likely secondary to multilobar pneumonia with left-sided pleural effusion Procalcitonin 0.11, respiratory bio fire negative for everything on 02/03/2024, nasal MRSA negative BNP 8 -- 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 At home on Wixela high-dose along with Incruse Continue with same regimen Continue with Mucinex for chronic bronchitis Spirometry 11/30/2023 personally reviewed: Nonspecific spirometry, no obstructive lung dysfunction FVC 1.89 L 46%, FEV1 1.46 L 46%, FEV1/FVC 77 --Abnormal chest CT Patient seems to have traction bronchiectasis as well as scarring which is more prominent on the left side in the lingula Honeycombing is also appreciated on the periphery Was exposed to agent orange as well as [employer] No personal or family history of any autoimmune disease like lupus, sarcoid, Sjogren's, rheumatoid Denies any Raynaud's Autoimmune workup negative for everything Hypersensitive pneumonitis workup was positive for a lot of things, 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 HRCT to be done in the near future 2D echo prior to next visit to look at the right-sided pressures CT chest 12/07/2023 personally reviewed: Bullous emphysema appreciated bilaterally Traction bronchiectasis as well as honeycombing appreciated bilateral lower lobes more on the left side Scarring in the lingula do we have any other imaging No significant mediastinal lymphadenopathy --Chronic hypoxic respiratory failure Continue with O2 supplementation to keep oxygen saturation between 90-92% --Ex -smoker > [id number] smoking history Quit at the age of 64 Encouraged to continue abstinence from smoking --History of lung cancer in brother was a smoker --Osteoblastic lesions appreciated on the CT of the abdomen and pelvis Patient does have significant smoking history, although on the CT chest 11/2023 there was no clear nodularity/mass, possibility of metastatic [place] is there I will still have prostate CA high in my differential Plan: For thoracentesis later today for left-sided pleural effusion Risk and benefit of the procedure explained the patient in depth, he understands and agrees to go ahead with the Continue with antibiotics, QTc 442 Case was discussed with primary team Please note the above document was generated using voice recognition software. It may contain grammatical, syntax or spelling errors.Any formal questions or concerns about the content, text or information contained within the body of this dictation should be directly addressed to the provider for clarification. History of Present Illness Attending Physician: Jean-Paul Jones History of Present Illness 73-year-old male admitted to hospital because of worsening shortness of breath Past medical history: Hypothyroidism, GERD, dyslipidemia Patient was last seen by me in the clinic on 12/30/2023 Present guards were in the room at the time of examination Patient says that he was having more shortness of breath compared to his baseline Did complain of phlegm and difficulty bringing it up. Does have chest congestion. Denies any hemoptysis. No chest pain Has been compliant with Wixela as well as Incruse on a daily basis. Has also been using oxygen [id number] Denies any personal or family history of any autoimmune disease like lupus, sarcoid, Sjogren's, rheumatoid Denies any Raynaud's. Does have chronic dry mouth. No difficulty swallowing. No dry eyes. Denies any fever or chills Did have some diarrhea which was only twice a day, he was on stool softeners as well Social history:> [id number] smoking history, quit in 2014, social alcohol, denies any illicit drug use. Was stationed in [employer] for 1 year was exposed to agent orange, was also stationed at [employer] [facility] Pets: Dog, no birds or poultry nearby. Allergies: Denies Asthma: No family history of asthma Lung cancer: History of lung cancer in brother was a smoker Allergies Allergy/AdvReac Type Severity Reaction Status Date / Time No Known Allergies Allergy Verified 02/04/24 02:17 Home Medications Medication Instructions Recorded Confirmed Type albuterol sulfate 90 mcg/actuation 2 puff inhalation QID PRN 02/03/24 02/03/24 History aerosol inhaler Shortness Of Breath Or Wheezing amlodipine 10 mg tablet 10 mg PO DAILY 02/03/24 02/03/24 History cholecalciferol (vitamin D3) 25 50 mcg PO DAILY 02/03/24 02/03/24 History mcg (1,000 unit) capsule (Vitamin D3) docusate sodium 100 mg capsule 100 mg PO BID 02/03/24 02/03/24 History fluticasone 500 mcg-salmeterol 50 1 inh inhalation BID 02/03/24 02/03/24 History mcg/dose blistr powdr for inhalation (Wixela Inhub) glipizide 10 mg tablet 10 mg PO BID 02/03/24 02/03/24 History guaifenesin 400 mg tablet 400 mg PO TID 02/03/24 02/03/24 History ibuprofen 600 mg tablet 600 mg PO TID PRN Pain 02/03/24 02/03/24 History levothyroxine 88 mcg tablet 88 mcg PO DAILY 02/03/24 02/03/24 History metformin 850 mg tablet 850 mg PO BID 02/03/24 02/03/24 History omeprazole 20 mg tablet,delayed 20 mg PO DAILY 02/03/24 02/03/24 History release oxycodone 5 mg tablet 10 mg PO TID 02/03/24 02/03/24 History rosuvastatin 10 mg tablet 10 mg PO HS 02/03/24 02/03/24 History umeclidinium 62.5 mcg/actuation 1 inh inhalation DAILY 02/03/24 02/03/24 History blister powder for inhalation (Incruse Ellipta) Patient History Medical History (Updated 02/06/24 @ 12:15 by Isaura Adair MD, [facility]) GERD (gastroesophageal reflux disease) Hypothyroid Diabetes Hypertension Personal history of colonic polyps Pulmonary fibrosis Vitamin D deficiency Surgical History (Updated 02/04/24 @ 00:47 by Daylin Lantigua DO) History of hernia repair History of cholecystectomy Family History (Updated 02/04/24 @ 00:46 by Daylin Lantigua DO) Brother Cancer Lung cancer Mother Cancer Breast cancer Social History Smoking Status: Former smoker Tobacco Type: Cigarettes Age Started Using Tobacco: 8; Age Quit Using Tobacco: 65; packs per day: 2; Second Hand Exposure: No; Do You Dip or Chew Tobacco: No; Hx Alcohol Use: No Hx Substance Use: No Preferred Language: Wolof Communication Ability: Effective Trader Fixed Income Required: No Beliefs That Will Affect Care: None Current Living Situation: Other Current Living Situation Comment: fdc Feels Safe at Home: Yes Assistive Devices: Oxygen - Continuous Review of Systems 2 Review of Systems: All systems reviewed & are unremarkable except as noted in HPI & below Physical Exam 2 Physical Exam: Constitutional: No acute distress HEENT: EOMI, PERRLA Respiratory system: Decreased air entry bilaterally, more decreased on the left, positive Velcro-like crackles appreciated bilaterally, no wheeze, no rhonchi CVS: S1-S2 positive, no murmurs or gallops, tachycardia, accentuated P2 Abdomen: Soft, nontender, nondistended, positive bowel sounds x4 Extremities: +2 pulses bilaterally radialis, no cyanosis, +1 pitting edema bilateral lower extremity, no clubbing Neuro: Awake alert oriented x3 Psych: Normal mood and affect G/U: No Lria Skin: no rashes, warm and dry Lymphatic: no cervical or axillary lymphadenopathy Results & Data Results & Data Vital Signs (Past 12 Hours) Vital Signs Temp Pulse Pulse Resp BP Pulse Ox O2 Del Method 02/06/24 10:36 96 High Flow Nasal Cannula 02/06/24 09:51 96 High Flow Nasal Cannula 02/06/24 09:28 97 High Flow Nasal Cannula 02/06/24 09:10 97 High Flow Nasal Cannula 02/06/24 08:52 97 High Flow Nasal Cannula 02/06/24 08:36 97 High Flow Nasal Cannula 02/06/24 08:09 36.6 C 89 19 123/72 91 High Flow Nasal Cannula 02/06/24 08:04 68 L High Flow Nasal Cannula 02/06/24 07:56 89 16 93 Nasal Cannula 02/06/24 07:49 96 High Flow Nasal Cannula 02/06/24 07:12 97 Oxymask 02/06/24 07:06 Oxymask 02/06/24 07:00 103 H 02/06/24 03:04 36.5 C 108 H 22 137/96 96 High Flow Nasal Cannula 02/06/24 03:01 109 H 18 94 Oxymask 02/05/24 23:01 37.0 C 133 H 21 125/81 93 High Flow Nasal Cannula O2 Flow Rate 02/06/24 10:36 2 02/06/24 09:51 4 02/06/24 09:28 7 02/06/24 09:10 9 02/06/24 08:52 11 02/06/24 08:36 15 02/06/24 08:09 15 02/06/24 08:04 11 02/06/24 07:56 13 02/06/24 07:49 13 02/06/24 07:12 15 02/06/24 07:06 13 02/06/24 07:00 02/06/24 03:04 15 02/06/24 03:01 15 02/05/24 23:01 15 Laboratory Results 02/05/24 07:59 02/05/24 07:59 PG Care Time/CCT Total # of Minutes Spent Total Time Spent with Patient: Total time spent is greater than 50% in coordination of care (as documented) at patient's floor/unit and/or counseling patient: Coding Level of Care Code 95482 INT INP/OBS CARE 3/75MIN Diagnoses ILD (interstitial lung disease) J84.9 Chronic bronchitis J42 Chronic respiratory failure with hypoxia J96.11 Pneumonia J18.9 Acute and chronic respiratory failure with hypoxia J96.21 COPD with emphysema J43.9 Combined pulmonary fibrosis and emphysema (CPFE) J43.9; J84.10 Exertional shortness of breath R06.02 Pleural effusion J90
[2024-02-06 12:57] LABS: AFP Tumor Marker Serum 2.9 ng/mL (<6.1)
--- NOTE | 2024-02-06 15:39 | Procedure Note ---
Procedure Note Date of Service February 06, 2024 Note Bedside Ultrasound: Lung: Right:-B-lines appreciated posteriorly and anteriorly, no pleural effusion Left:-Small to moderate left-sided pleural effusion with compressive atelectasis of the left lower lobe, B-lines anteriorly Please note the above document was generated using voice recognition software. It may contain grammatical, syntax or spelling errors.Any formal questions or concerns about the content, text or information contained within the body of this dictation should be directly addressed to the provider for clarification. Coding CPT Codes Pulmonary/Thoracic - Pulmonary and Thoracic: 36536 US, Chest, real time with imaging documentation ([id number]) [facility] [place] Procedure Codes (Charges) Pulmonary/Thoracic Procedure 1: Pulmonary and Thoracic: 21417 US, Chest, real time with imaging documentation
--- NOTE | 2024-02-06 15:40 | Procedure Note ---
Procedure Note Date of Service February 06, 2024 Note Procedure: Diagnostic therapeutic ultrasound-guided catheter thoracentesis [employer]: Dr. Isaura Adair Indication: Left pleural effusion Consent: Signed by patient and verified with timeout prior to procedure Anesthesia: 1% lidocaine without epinephrine local. Procedure: Consent was verified and timeout performed. Appropriate imaging studies were reviewed prior to the procedure. Patient was placed in a seated position and limited thoracic ultrasound was performed of the left chest. See separate imaging. Appropriate site above the diaphragm for thoracentesis was selected. The skin was prepped and draped in normal sterile fashion. Lidocaine was used for local analgesia. Fluid was aspirated via the finder needle. A small skin kb was made with the scalpel and the catheter over the needle apparatus was advanced over the rib into the pleural space. Using the syringe one-way valve system, a total of 750 mL's of bloody fluid was removed. Procedure was terminated due to chest tightness. The catheter was removed and observed to be intact. A sterile dressing was applied. Post procedure chest x-ray was ordered. Fluid was sent for labs, culture and cytology. Complications: None Blood loss: Less than 1 cc Coding CPT Codes Pulmonary/Thoracic - Pulmonary and Thoracic: 85570 Thoracentesis w imaging ([id number]) [facility] [place] Procedure Codes (Charges) Pulmonary/Thoracic Procedure 1: Pulmonary and Thoracic: 53968 Thoracentesis w imaging
--- NOTE | 2024-02-06 15:55 | XRay Report ---
XR chest 1V portable CLINICAL HISTORY: left thoracentesis TECHNIQUE: Single frontal radiograph of the chest was obtained. Comparison: Comparison is made to chest radiograph 02/03/[address] chest 02/04/2024 FINDINGS: No lines and tubes are seen. The cardiomediastinal silhouette is normal. Left lower lung airspace opa city is seen. Emphysema and interstitial thickening are unchanged. There is likely a left pleural eff usion. IMPRESSION: Essentially stable airspace opacity and pleural effusion as above. ACT 112: Negative or not required by law. Electronically signed by: Ad Travis M.D. 02/06/2024 3:54 PM
[2024-02-06] MEDS: HEPARIN SOD 5,000 UNIT/0.5 ML VIAL FLUSH STA (16:28)
[2024-02-06] MEDS: HEPARIN SOD (PORCINE) 1000 UNIT/ML ONE (16:28)
[2024-02-06 16:52] LABS: Total Protein Pleural Fluid 5.2 gm/dl
--- NOTE | 2024-02-06 17:40 | Electrocardiogram Report ---
Test Reason : Blood Pressure : / mmHG Vent. Rate : 130 BPM Atrial Rate : 130 BPM P-R Int : 162 ms QRS Dur : 084 ms QT Int : 292 ms P-R-T Axes : 032 018 017 degrees QTc Int : 429 ms Sinus tachycardia Otherwise normal ECG When compared with ECG of 03-FEB-2024 21:44, No significant change was found Confirmed by Moi Garcia ([id number]) on 02/06/2024 5:40:05 PM Referred By: [facility] Confirmed By:Nazario Garcia
[2024-02-06 18:51] LABS: Appearance Pleural Fluid Cloudy; Color Pleural Fluid Red; Lymphocytes, Fluid 16 %; Mono,Macrophage,Mesothelial 47 %; Neutrophils, Fluid 37 %; RBC Pleural Fluid Auto 1567000 /uL; Source Pleural Fluid Left Lung; WBC Pleural Fluid Auto 3653 /uL
[2024-02-06] MEDS: SODIUM CHLOR 7% 4 ML NEB NEB SCH (19:26)
[2024-02-07] MEDS: IBUPROFEN 600 MG TAB PO PRN (03:34)
[2024-02-07] MEDS ORDERED: HYDROmorphone INJ 1 MG/ML SYRINGE IV PRN (03:49)
[2024-02-07] MEDS: HYDROmorphone INJ 0.5 MG/0.5 ML SYR IV PRN (05:11)
[2024-02-07 06:30] LABS: Hematocrit (blood only) 40.6 % (42.0-52.0); Hemoglobin 13.7 g/dl (14.0-18.0); Mean Corpuscular Hemoglobin 30.5 pg (25.0-34.0); Mean Corpuscular Hgb Conc 33.7 g/dL (32.0-36.0); Mean Corpuscular Volume 90.4 fL (80.0-100.0); Platelet Count 386 K/uL (130-400); RDW Coefficient of Variation 13.3 % (11.5-14.5); RDW Standard Deviation 43.8 fL (36.4-46.3); Red Blood Count 4.49 M/uL (4.70-6.10); White Blood Count 14.33 K/ul (4.8-10.8)
[2024-02-07 07:00] LABS: BUN Creatinine Ratio 21.1 (10-20); Calcium 9.6 mg/dl (8.6-10.3); Creatinine Clr Calc Pharmacy 57.7 ml/min; Est GFR (African American) 73.5 ml/min; Est GFR (Non-African American) 63.4 ml/min; Potassium 4.5 mmol/L (3.5-5.1)
--- NOTE | 2024-02-07 08:36 | XRay Report ---
XR chest 1V portable HISTORY: 73 years-old Male f/u acute shortness of breath COMPARISON: Chest radiograph 02/06/2024, chest CT 02/04/2024 TECHNIQUE: AP view of the chest FINDINGS: Cardiomediastinal and hilar silhouettes are unchanged. Pulmonary vascular congestion. Severe emphysem a with chronic interstitial coarsening/fibrotic changes. Moderate left pleural effusion with extensiv e left lung airspace opacities redemonstrated. No pneumothorax. Cholecystectomy. Barium noted within the colon. IMPRESSION: 1. Pulmonary vascular congestion. 2. Emphysema with chronic fibrotic changes. 3. Moderate left pleural effusion with extensive left lung airspace opacities redemonstrated. ACT 112: Negative or not required by law. The above report was generated using voice recognition software. It may contain grammatical, syntax o r spelling errors. Electronically signed by: Sony Lundy M.D. 02/07/2024 8:35 AM
[2024-02-07] MEDS: GELATIN SPONGE 12-7MM ONE (09:46)
[2024-02-07] MEDS: fentaNYL citrate PF 100 MCG/2 ML VIAL ONE (09:46)
--- NOTE | 2024-02-07 09:52 | Pulmonology Progress Note ---
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): (8) Exertional shortness of breath: (9) Pleural effusion: Plan -- Acute on chronic hypoxic respiratory failure Likely secondary to multilobar pneumonia with left-sided pleural effusion Procalcitonin 0.11, respiratory bio fire negative for everything on 02/03/2024, nasal MRSA negative BNP 8 S/p left sided thoracentesis 02/06/2024, 750 mL of bloody fluid was removed, exudative as per lights criteria Pleural fluid: LDH 3153, protein 5.2, pH 7.2, RBCs 1.56 million Serum: LDH 566, protein 7.1 -- 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 At home on Wixela high-dose along with Incruse Continue with same regimen Continue with Mucinex for chronic bronchitis Spirometry 11/30/2023 personally reviewed: Nonspecific spirometry, no obstructive lung dysfunction FVC 1.89 L 46%, FEV1 1.46 L 46%, FEV1/FVC 77 --Abnormal chest CT Patient seems to have traction bronchiectasis as well as scarring which is more prominent on the left side in the lingula Honeycombing is also appreciated on the periphery Was exposed to agent orange as well as [place] No personal or family history of any autoimmune disease like lupus, sarcoid, Sjogren's, rheumatoid Denies any Raynaud's Autoimmune workup negative for everything Hypersensitive pneumonitis workup was positive for a lot of things, 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 --Chronic hypoxic respiratory failure Continue with O2 supplementation to keep oxygen saturation between 90-92% --Ex -smoker > [id number] smoking history Quit at the age of 64 Encouraged to continue abstinence from smoking --History of lung cancer in brother was a smoker --Osteoblastic lesions along with Liver lesion appreciated on imaging Patient does have significant smoking history, although on the CT chest 11/2023 there was no clear nodularity/mass, possibility of metastatic disesease is there Plan: Chest x-ray from today shows reaccumulation of the fluid on the left side Patient stated that he felt better after I took the fluid out. Given the clinical picture is it highly seems that the patient's pleural effusion is malignant. Consideration for Pleurx catheter could be thought of Patient wants to wait for the biopsy results to come back before making the decision. Overall prognosis is guarded. Would recommend palliative care consultation as well Please note the above document was generated using voice recognition software. It may contain grammatical, syntax or spelling errors.Any formal questions or concerns about the content, text or information contained within the body of this dictation should be directly addressed to the provider for clarification. Admission and Anticipated Discharge Date Admission Date: February 03, 2024 Subjective Patient seen and examined at bedside. No acute distress, no dressings overnight He was on 13 L oxygen, saturating 87-88% Denies any chest pain. He just had the biopsy of the liver lesion done. Denies any nausea or vomiting Appetite is poor. Denies any headache or blurry vision Has been afebrile Review of Systems 2 Review of Systems: All systems reviewed & are unremarkable except as noted in Subjective Physical Exam 2 Physical Exam: Constitutional: No acute distress HEENT: EOMI, PERRLA Respiratory system: Decreased air entry bilaterally, more decreased on the left, positive Velcro-like crackles appreciated bilaterally, no wheeze, no rhonchi CVS: S1-S2 positive, no murmurs or gallops, tachycardia, accentuated P2 Abdomen: Soft, nontender, nondistended, positive bowel sounds x4 Extremities: +2 pulses bilaterally radialis, no cyanosis, +1 pitting edema bilateral lower extremity, no clubbing Neuro: Awake alert oriented x3 Psych: Normal mood and affect G/U: No Lira Skin: no rashes, warm and dry Lymphatic: no cervical or axillary lymphadenopathy Results & Data Results & Data Vital Signs (Past 12 Hours) Vital Signs Temp Pulse Pulse Resp BP Pulse Ox Pulse Ox 02/07/24 09:32 115 H 02/07/24 09:17 116 H 02/07/24 08:00 02/07/24 07:29 119 H 26 H 93 02/07/24 07:13 125 H 02/07/24 03:27 36.9 C 124 H 16 107/77 94 02/07/24 03:19 118 H 17 96 02/07/24 02:00 91 02/06/24 23:01 36.5 C 120 H 20 131/86 90 O2 Del Method O2 Del Method O2 Flow Rate O2 Flow Rate 02/07/24 09:32 02/07/24 09:17 02/07/24 08:00 High Flow Nasal Cannula 02/07/24 07:29 Nasal Cannula 13 02/07/24 07:13 02/07/24 03:27 High Flow Nasal Cannula 15 02/07/24 03:19 Nasal Cannula 13 02/07/24 02:00 High Flow Nasal Cannula 15 02/06/24 23:01 High Flow Nasal Cannula 15 Laboratory Results 02/07/24 05:27 02/07/24 05:27 PG Care Time/CCT Total # of Minutes Spent Total Time Spent with Patient: Total time spent is greater than 50% in coordination of care (as documented) at patient's floor/unit and/or counseling patient: Coding Level of Care Code 23550 SUB INP/OBS CARE 3/50MIN Diagnoses ILD (interstitial lung disease) J84.9 Chronic bronchitis J42 Chronic respiratory failure with hypoxia J96.11 Pneumonia J18.9 Acute and chronic respiratory failure with hypoxia J96.21 COPD with emphysema J43.9 Combined pulmonary fibrosis and emphysema (CPFE) J43.9; J84.10 Exertional shortness of breath R06.02 Pleural effusion J90
--- NOTE | 2024-02-07 14:27 | Ultrasound Report ---
Ultrasound guided right lobe liver lesion core biopsy INDICATION: Right lobe liver lesion PROCEDURE: Procedure and risks were explained. Informed consent was obtained. A final timeout was com pleted. The abdomen was prepped and draped in sterile fashion. 1% lidocaine was utilized for skin ane sthesia. Utilizing ultrasound guidance, a 17-gauge coaxial needle was advanced into the right lobe liver lesio n. Ultrasound images were obtained. An 18-gauge core biopsy needle was advanced, and 3 1 cm cores wer e obtained and given to the pathologist for review. The coaxial needle was removed and Band-Aid appli ed. The patient tolerated the procedure well. Vital signs will be monitored on the floor. IMPRESSION: Right lobe liver lesion core biopsy as above. Performed, dictated, and signed by Prabhjot Blackburn PA-C; to be co-signed by Dr. Sony Lundy. Electronically signed by: Sony Lundy M.D. 02/07/2024 2:33 PM
--- NOTE | 2024-02-07 17:48 | Hospitalist Progress Note ---
Date of Service February 07, 2024 Assessment & Plan (1) Acute and chronic respiratory failure with hypoxia: Plan: imaging of lung suggests baseline COPD, multifocal pneumonia and probable metastatic cancer pt with history of Idiopathic pulmonary fibrosis with restrictive PFT per retirement records there is a liver lesion and possible need for pulmonary evaluation as we do not yet have a tissue diagnosis, CEA is markedly elevated suggesting adenocarcinoma origin Interventional radiology will be ordered for 02/06/2024- Going to hold Lovenox in the evening of 02/04 for possible IR procedure on 02/05 this will need to be renewed as 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 Patient declined. Given concern for hypoxia, unsure of patient's disposition. Consulted pulmonary: s/p thoracocenthesis. WIll monitor. continues to require high amount of oxygen. (2) Pneumonia: Plan: Multifocal pneumonia, concern for post obstructive, gram negative pneumonia CT suggest metastatic disease progressed from outpt CT of 12/07/23 including skeletal and liver mets -Follow cultures sent from ER -Azithromycin and Cefepime -negative MRSA nares Consult pulmonary, plan for possible thoracocenthesis. However patient likely has tumor causing his marked hypoxia Plan Hypertension - blood pressure adequately controlled -Continue Amlodipine 10mg po daily Hypothyroidism - chronic. stable -Continue home Synthroid 88mcg DM -Hold home Metformin and Glipizide -ISS -Goal blood sugar 110 - 140 GERD - chronic, stable -Protonix 40mg po daily while admitted -Resume home Omeprazole on DC Code - DNR/DNI per discussion with patient Admission and Anticipated Discharge Date Admission Date: February 03, 2024 Subjective Patient reports having symptoms of GERD. Patient reports no improvement with his breathing. Review of Systems Review of Systems: All systems reviewed & are unremarkable except as noted in HPI & below Physical Exam Physical Exam: Patient has poor air movement bilaterally with no wheezes there is dullness at bilateral bases possibly consistent with pleural effusions Abdomen is without hepatomegaly soft and nontender He has no particular bone pain to palpation Card exam is regular Results & Data Results & Data Vital Signs (Past 12 Hours) Vital Signs Temp Pulse Pulse Resp BP Pulse Ox O2 Del Method 02/07/24 17:00 117 H 02/07/24 14:30 110 H 16 93 Nasal Cannula 02/07/24 11:17 111 H 22 94 Nasal Cannula 02/07/24 11:01 36.7 C 113 H 18 124/79 91 High Flow Nasal Cannula 02/07/24 09:32 115 H 02/07/24 09:17 116 H 02/07/24 08:00 High Flow Nasal Cannula 02/07/24 07:29 119 H 26 H 93 Nasal Cannula 02/07/24 07:13 125 H O2 Flow Rate 02/07/24 17:00 02/07/24 14:30 11 02/07/24 11:17 13 02/07/24 11:01 15.0 02/07/24 09:32 02/07/24 09:17 02/07/24 08:00 02/07/24 07:29 13 02/07/24 07:13 PG Care Time/CCT Total # of Minutes Spent Total Time Spent with Patient: Total time spent is greater than 50% in coordination of care (as documented) at patient's floor/unit and/or counseling patient: Coding Level of Care Code 89574 SUB INP/OBS CARE 2/35MIN Diagnoses Acute and chronic respiratory failure with hypoxia J96.21 Pneumonia J18.9
[2024-02-07] MEDS: SUCRALFATE 1 GM/10 ML UDC PO SCH (20:33)
[2024-02-08 05:55] LABS: Hematocrit (blood only) 40.4 % (42.0-52.0); Mean Corpuscular Hgb Conc 34.7 g/dL (32.0-36.0); Mean Corpuscular Volume 89.6 fL (80.0-100.0); Mean Platelet Volume 9.8 fL (9.4-12.4); Platelet Count 368 K/uL (130-400); RDW Coefficient of Variation 13.2 % (11.5-14.5); RDW Standard Deviation 42.9 fL (36.4-46.3); Red Blood Count 4.51 M/uL (4.70-6.10); White Blood Count 14.57 K/ul (4.8-10.8)
[2024-02-08 06:13] LABS: BUN Creatinine Ratio 22.6 (10-20); Calcium 9.8 mg/dl (8.6-10.3); Creatinine Clr Calc Pharmacy 57.2 ml/min; Est GFR (African American) 72.8 ml/min; Est GFR (Non-African American) 62.8 ml/min
--- NOTE | 2024-02-08 12:13 | Pulmonology Progress Note ---
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): (8) Exertional shortness of breath: (9) Pleural effusion: (10) Adenocarcinoma of lung: Plan -- Acute on chronic hypoxic respiratory failure Likely secondary to multilobar pneumonia with left-sided pleural effusion Procalcitonin 0.11, respiratory bio fire negative for everything on 02/03/2024, nasal MRSA negative BNP 8 S/p left sided thoracentesis 02/06/2024, 750 mL of bloody fluid was removed, exudative as per lights criteria Pleural fluid: LDH 3153, protein 5.2, pH 7.2, RBCs 1.56 million Serum: LDH 566, protein 7.1 Fluid cytology is positive for adenocarcinoma of the lung -- 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 At home on Wixela high-dose along with Incruse Continue with same regimen Continue with Mucinex for chronic bronchitis Spirometry 11/30/2023 personally reviewed: Nonspecific spirometry, no obstructive lung dysfunction FVC 1.89 L 46%, FEV1 1.46 L 46%, FEV1/FVC 77 --Abnormal chest CT Patient seems to have traction bronchiectasis as well as scarring which is more prominent on the left side in the lingula Honeycombing is also appreciated on the periphery Was exposed to agent orange as well as [place] No personal or family history of any autoimmune disease like lupus, sarcoid, Sjogren's, rheumatoid Denies any Raynaud's Autoimmune workup negative for everything Hypersensitive pneumonitis workup was positive for a lot of things, 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 --Chronic hypoxic respiratory failure Continue with O2 supplementation to keep oxygen saturation between 90-92% --Ex -smoker > 11-ugch-yevv smoking history Quit at the age of 64 Encouraged to continue abstinence from smoking --History of lung cancer in brother was a smoker --Osteoblastic lesions along with Liver lesion appreciated on imaging Patient does have significant smoking history, although on the CT chest 11/2023 there was no clear nodularity/mass, possibility of metastatic disesease is there Plan: Given the clinical picture is it highly seems that the patient's pleural effusion is malignant. Consideration for Pleurx catheter could be thought of Patient wants to wait for the biopsy results to come back before making the decision. Overall prognosis is guarded. Would recommend palliative care consultation as well Please note the above document was generated using voice recognition software. It may contain grammatical, syntax or spelling errors.Any formal questions or concerns about the content, text or information contained within the body of this dictation should be directly addressed to the provider for clarification. Admission and Anticipated Discharge Date Admission Date: February 03, 2024 Subjective Patient seen and examined at bedside. No acute distress He said he did not get a good night sleep. He was saturating 95 to 96% on 15 L nasal cannula. Denied any chest pain. Denied any headache, no nausea or vomiting. Appetite is poor Review of Systems 2 Review of Systems: All systems reviewed & are unremarkable except as noted in Subjective Physical Exam 2 Physical Exam: Constitutional: No acute distress HEENT: EOMI, PERRLA Respiratory system: Decreased air entry bilaterally, more decreased on the left, positive Velcro-like crackles appreciated bilaterally, no wheeze, no rhonchi CVS: S1-S2 positive, no murmurs or gallops, tachycardia, accentuated P2 Abdomen: Soft, nontender, nondistended, positive bowel sounds x4 Extremities: +2 pulses bilaterally radialis, no cyanosis, +1 pitting edema bilateral lower extremity, no clubbing Neuro: Awake alert oriented x3 Psych: Normal mood and affect G/U: No Lira Skin: no rashes, warm and dry Lymphatic: no cervical or axillary lymphadenopathy Results & Data Results & Data Vital Signs (Past 12 Hours) Vital Signs Temp Pulse Resp BP Pulse Ox O2 Del Method O2 Flow Rate 02/08/24 11:02 36.4 C L 115 H 20 125/82 90 High Flow Nasal Cannula 02/08/24 10:28 108 H 18 91 Nasal Cannula 11 02/08/24 08:47 High Flow Nasal Cannula 15 02/08/24 07:33 36.8 C 112 H 18 128/78 94 High Flow Nasal Cannula 02/08/24 06:58 109 H 20 92 Nasal Cannula 11 02/08/24 03:20 113 H 16 93 Nasal Cannula 11 02/08/24 03:03 36.9 C 109 H 18 141/82 H 94 Nasal Cannula 15 Laboratory Results 02/08/24 05:41 02/08/24 05:41 PG Care Time/CCT Total # of Minutes Spent Total Time Spent with Patient: Total time spent is greater than 50% in coordination of care (as documented) at patient's floor/unit and/or counseling patient: Coding Level of Care Code 07360 SUB INP/OBS CARE 2/35MIN Diagnoses ILD (interstitial lung disease) J84.9 Chronic bronchitis J42 Chronic respiratory failure with hypoxia J96.11 Pneumonia J18.9 Acute and chronic respiratory failure with hypoxia J96.21 COPD with emphysema J43.9 Combined pulmonary fibrosis and emphysema (CPFE) J43.9; J84.10 Exertional shortness of breath R06.02 Pleural effusion J90 Adenocarcinoma of lung C34.90
[2024-02-08] MEDS: CEFEPIME 2,000 MG in SYRINGE 0 ML IV SCH (17:19)
--- NOTE | 2024-02-08 18:31 | Hospitalist Progress Note ---
Date of Service February 08, 2024 Assessment & Plan (1) Acute and chronic respiratory failure with hypoxia: Plan: imaging of lung suggests baseline COPD, multifocal pneumonia and probable metastatic cancer pt with history of Idiopathic pulmonary fibrosis with restrictive PFT per [facility] records there is a liver lesion and possible need for pulmonary evaluation as we do not yet have a tissue diagnosis, CEA is markedly elevated suggesting adenocarcinoma origin Interventional radiology will be ordered for 02/06/2024- Going to hold Lovenox in the evening of 02/04 for possible IR procedure on 02/05 this will need to be renewed as 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 Patient declined. Given concern for hypoxia, unsure of patient's disposition. Consulted pulmonary: s/p thoracocenthesis. continues to require high amount of oxygen. pathology now showing: adenocarcinoma of lung. consult palliative care. (2) Pneumonia: Plan: Multifocal pneumonia, concern for post obstructive, gram negative pneumonia CT suggest metastatic disease progressed from outpt CT of 12/07/23 including skeletal and liver mets -Follow cultures sent from ER -Azithromycin and Cefepime -negative MRSA nares Consult pulmonary, plan for possible thoracocenthesis. However patient likely has tumor causing his marked hypoxia Plan Hypertension - blood pressure adequately controlled -Continue Amlodipine 10mg po daily Hypothyroidism - chronic. stable -Continue home Synthroid 88mcg DM -Hold home Metformin and Glipizide -ISS -Goal blood sugar 110 - 140 GERD - chronic, stable -Protonix 40mg po daily while admitted -Resume home Omeprazole on DC Code - DNR/DNI per discussion with patient Admission and Anticipated Discharge Date Admission Date: February 03, 2024 Subjective Patient reports no new symptoms. Review of Systems Review of Systems: All systems reviewed & are unremarkable except as noted in HPI & below Physical Exam Physical Exam: Patient has poor air movement bilaterally with no wheezes there is dullness at bilateral bases possibly consistent with pleural effusions Abdomen is without hepatomegaly soft and nontender He has no particular bone pain to palpation Card exam is regular Results & Data Results & Data Vital Signs (Past 12 Hours) Vital Signs Temp Pulse Resp BP Pulse Ox O2 Del Method O2 Flow Rate 02/08/24 14:37 37.1 C 112 H 20 119/74 95 High Flow Nasal Cannula 02/08/24 14:14 105 H 18 92 Nasal Cannula 11 02/08/24 11:02 36.4 C L 115 H 20 125/82 90 High Flow Nasal Cannula 02/08/24 10:28 108 H 18 91 Nasal Cannula 11 02/08/24 08:47 High Flow Nasal Cannula 15 02/08/24 07:33 36.8 C 112 H 18 128/78 94 High Flow Nasal Cannula 02/08/24 06:58 109 H 20 92 Nasal Cannula 11 PG Care Time/CCT Total # of Minutes Spent Total Time Spent with Patient: Total time spent is greater than 50% in coordination of care (as documented) at patient's floor/unit and/or counseling patient: Coding Level of Care Code 34853 SUB INP/OBS CARE 2/35MIN Diagnoses Acute and chronic respiratory failure with hypoxia J96.21 Pneumonia J18.9
--- NOTE | 2024-02-09 07:52 | Pulmonology Progress Note ---
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): (8) Exertional shortness of breath: (9) Pleural effusion: (10) Adenocarcinoma of lung: Plan -- Acute on chronic hypoxic respiratory failure Likely secondary to multilobar pneumonia with left-sided pleural effusion Procalcitonin 0.11, respiratory bio fire negative for everything on 02/03/2024, nasal MRSA negative BNP 8 S/p left sided thoracentesis 02/06/2024, 750 mL of bloody fluid was removed, exudative as per lights criteria Pleural fluid: LDH 3153, protein 5.2, pH 7.2, RBCs 1.56 million Serum: LDH 566, protein 7.1 Fluid cytology is positive for adenocarcinoma of the lung -- 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 At home on Wixela high-dose along with Incruse Continue with same regimen Continue with Mucinex for chronic bronchitis Spirometry 11/30/2023 personally reviewed: Nonspecific spirometry, no obstructive lung dysfunction FVC 1.89 L 46%, FEV1 1.46 L 46%, FEV1/FVC 77 --Abnormal chest CT Patient seems to have traction bronchiectasis as well as scarring which is more prominent on the left side in the lingula Honeycombing is also appreciated on the periphery Was exposed to agent orange as well as [place] No personal or family history of any autoimmune disease like lupus, sarcoid, Sjogren's, rheumatoid Denies any Raynaud's Autoimmune workup negative for everything Hypersensitive pneumonitis workup was positive for a lot of things, 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 Patient is agreeable to it. Placed the catheter later today Continue to hold Lovenox Overall prognosis is guarded. Recommend palliative care consultation as well Case was discussed with RN and primary team Please note the above document was generated using voice recognition software. It may contain grammatical, syntax or spelling errors.Any formal questions or concerns about the content, text or information contained within the body of this dictation should be directly addressed to the provider for clarification. Admission and Anticipated Discharge Date Admission Date: February 03, 2024 Subjective Patient seen and examined at bedside. No acute distress, notable since overnight He was on 11 L nasal cannula, saturating 91-92% He said he is feeling the same. Denied any chest pain. He is aware of his diagnosis of metastatic lung cancer. He is agreeable to Pleurx catheter to be placed for the left-sided pleural effusion which she has. Denies any chest pain Review of Systems 2 Review of Systems: All systems reviewed & are unremarkable except as noted in Subjective Physical Exam 2 Physical Exam: Constitutional: No acute distress HEENT: EOMI, PERRLA Respiratory system: Decreased air entry bilaterally, more decreased on the left, positive Velcro-like crackles appreciated bilaterally, no wheeze, no rhonchi CVS: S1-S2 positive, no murmurs or gallops, tachycardia, accentuated P2 Abdomen: Soft, nontender, nondistended, positive bowel sounds x4 Extremities: +2 pulses bilaterally radialis, no cyanosis, +1 pitting edema bilateral lower extremity, no clubbing Neuro: Awake alert oriented x3 Psych: Normal mood and affect G/U: No Lira Skin: no rashes, warm and dry Lymphatic: no cervical or axillary lymphadenopathy Results & Data Results & Data Vital Signs (Past 12 Hours) Vital Signs Temp Pulse Pulse Resp BP Pulse Ox O2 Del Method 02/09/24 07:47 High Flow Nasal Cannula 02/09/24 07:34 103 H 02/09/24 07:18 105 H 20 96 Nasal Cannula 02/09/24 03:01 106 H 18 92 Nasal Cannula 02/09/24 02:31 36.4 C L 100 H 18 141/85 H 96 High Flow Nasal Cannula 02/09/24 00:15 105 H 20 96 Nasal Cannula 02/08/24 23:06 36.5 C 106 H 18 127/82 95 High Flow Nasal Cannula 02/08/24 22:00 129 H 02/08/24 22:00 High Flow Nasal Cannula O2 Flow Rate 02/09/24 07:47 11 02/09/24 07:34 02/09/24 07:18 13 02/09/24 03:01 13 02/09/24 02:31 15 02/09/24 00:15 15 02/08/24 23:06 15 02/08/24 22:00 02/08/24 22:00 15 Laboratory Results 02/09/24 07:27 02/09/24 07:27 PG Care Time/CCT Total # of Minutes Spent Total Time Spent with Patient: Total time spent is greater than 50% in coordination of care (as documented) at patient's floor/unit and/or counseling patient: Coding Level of Care Code 49904 SUB INP/OBS CARE 3/50MIN Diagnoses ILD (interstitial lung disease) J84.9 Chronic bronchitis J42 Chronic respiratory failure with hypoxia J96.11 Pneumonia J18.9 Acute and chronic respiratory failure with hypoxia J96.21 COPD with emphysema J43.9 Combined pulmonary fibrosis and emphysema (CPFE) J43.9; J84.10 Exertional shortness of breath R06.02 Pleural effusion J90 Adenocarcinoma of lung C34.90
[2024-02-09 07:54] LABS: Hematocrit (blood only) 43.7 % (42.0-52.0); Hemoglobin 14.7 g/dl (14.0-18.0); Mean Corpuscular Hemoglobin 30.2 pg (25.0-34.0); Mean Corpuscular Hgb Conc 33.6 g/dL (32.0-36.0); Mean Corpuscular Volume 89.7 fL (80.0-100.0); Mean Platelet Volume 9.9 fL (9.4-12.4); Platelet Count 386 K/uL (130-400); RDW Coefficient of Variation 13.2 % (11.5-14.5); RDW Standard Deviation 43.1 fL (36.4-46.3); Red Blood Count 4.87 M/uL (4.70-6.10); White Blood Count 14.28 K/ul (4.8-10.8)
[2024-02-09 08:06] LABS: BUN Creatinine Ratio 26.2 (10-20); Calcium 10.4 mg/dl (8.6-10.3); Creatinine Clr Calc Pharmacy 61.5 ml/min; Est GFR (African American) 79.4 ml/min; Est GFR (Non-African American) 68.5 ml/min; Potassium 5.4 mmol/L (3.5-5.1)
--- NOTE | 2024-02-09 08:22 | XRay Report ---
XR chest 1V portable CLINICAL HISTORY: f/u TECHNIQUE: Single frontal radiograph of the chest was obtained. Comparison: Comparison is made to chest radiograph 02/07/2024 FINDINGS: No lines and tubes are seen. The cardiomediastinal silhouette is normal. Bilateral lower lung predomi nant airspace opacities are seen. Moderate left pleural effusion is seen. IMPRESSION: 1. Bilateral lower lung predominant airspace opacities which may represent atelectasis, pneumonia, a nd/or aspiration. 2. Moderate left pleural effusion. ACT 112: Negative or not required by law. Electronically signed by: Ad Travis M.D. 02/09/2024 8:21 AM
[2024-02-09] MEDS: SODIUM ZIRCONIUM CYCLOSILICATE 10 GM PACKET PO SCH (12:57)
[2024-02-09] MEDS: CEFEPIME 2,000 MG in SYRINGE 0 ML IV SCH (12:57)
[2024-02-09] MEDS: LIDOCAINE 1% LOCAL 20 ML VIAL ONE (13:55)
[2024-02-09] MEDS: LIDOCAINE 1% LOCAL 20 ML VIAL INFIL ONE (13:55)
--- NOTE | 2024-02-09 16:43 | Hospitalist Progress Note ---
Date of Service February 09, 2024 Assessment & Plan (1) Acute and chronic respiratory failure with hypoxia: Plan: imaging of lung suggests baseline COPD, multifocal pneumonia and probable metastatic cancer pt with history of Idiopathic pulmonary fibrosis with restrictive PFT per [facility] records there is a liver lesion and possible need for pulmonary evaluation as we do not yet have a tissue diagnosis, CEA is markedly elevated suggesting adenocarcinoma origin Interventional radiology will be ordered for 02/06/2024- Going to hold Lovenox in the evening of 02/04 for possible IR procedure on 02/05 this will need to be renewed as 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 Patient declined. Given concern for hypoxia, unsure of patient's disposition. Consulted pulmonary: s/p thoracocenthesis. continues to require high amount of oxygen. pathology now showing: adenocarcinoma of lung. consult palliative care. unable to do pleural catheter (2) Pneumonia: Plan: Multifocal pneumonia, concern for post obstructive, gram negative pneumonia CT suggest metastatic disease progressed from outpt CT of 12/07/23 including skeletal and liver mets -Follow cultures sent from ER -Azithromycin and Cefepime -negative MRSA nares Consult pulmonary, However patient likely has tumor causing his marked hypoxia Plan Hypertension - blood pressure adequately controlled -Continue Amlodipine 10mg po daily Hypothyroidism - chronic. stable -Continue home Synthroid 88mcg DM -Hold home Metformin and Glipizide -ISS -Goal blood sugar 110 - 140 GERD - chronic, stable -Protonix 40mg po daily while admitted -Resume home Omeprazole on DC Code - DNR/DNI per discussion with patient Admission and Anticipated Discharge Date Admission Date: February 03, 2024 Subjective 73 yo male reports no new symptoms. Review of Systems Review of Systems: All systems reviewed & are unremarkable except as noted in HPI & below Physical Exam Physical Exam: Patient has poor air movement bilaterally Abdomen is without hepatomegaly soft and nontender He has no particular bone pain to palpation Card exam is regular Results & Data Results & Data Vital Signs (Past 12 Hours) Vital Signs Temp Pulse Pulse Resp BP Pulse Ox O2 Del Method 02/09/24 15:26 36.4 C L 109 H 20 124/77 93 High Flow Nasal Cannula 02/09/24 15:06 113 H 02/09/24 14:17 111 H 20 93 Nasal Cannula 02/09/24 12:17 36.4 C L 118 H 24 141/82 H 92 High Flow Nasal Cannula 02/09/24 10:47 105 H 18 95 Nasal Cannula 02/09/24 08:00 36.5 C 109 H 24 124/74 94 High Flow Nasal Cannula 02/09/24 07:47 High Flow Nasal Cannula 02/09/24 07:34 103 H 02/09/24 07:18 105 H 20 96 Nasal Cannula O2 Flow Rate 02/09/24 15:26 02/09/24 15:06 02/09/24 14:17 9 02/09/24 12:17 9 02/09/24 10:47 11 02/09/24 08:00 15 02/09/24 07:47 11 02/09/24 07:34 02/09/24 07:18 13 PG Care Time/CCT Total # of Minutes Spent Total Time Spent with Patient: Total time spent is greater than 50% in coordination of care (as documented) at patient's floor/unit and/or counseling patient: Coding Level of Care Code 64108 SUB INP/OBS CARE 2/35MIN Diagnoses Acute and chronic respiratory failure with hypoxia J96.21 Pneumonia J18.9
--- NOTE | 2024-02-09 17:18 | Hematology/Oncology Prog Note ---
Date of Service February 09, 2024 Assessment & Plan (1) Adenocarcinoma of lung: (2) Pleural effusion: (3) Chronic respiratory failure with hypoxia: (4) ILD (interstitial lung disease): (5) Acute and chronic respiratory failure with hypoxia: Plan Unfortunately very poor prognosis in the setting of interstitial lung disease and new diagnosis of metastatic adenocarcinoma of the lungs with molecular testing pending. Inpatient chemotherapy for non-small cell lung cancer not like ly to help Improve oxygenation. Suspect that hypoxia mainly contributed by interstitial lung disease and pneumonia. Poor candidate for chemotherapy at this time unless oxygen demand decreases. Patient is very realistic and indicates that he would prefer supportive care at this point unless performance status and hypoxia improves. Admission and Anticipated Discharge Date Admission Date: February 03, 2024 Subjective Liver biopsy confirmed metastatic adenocarcinoma of lung primary tumor has been sent for neotype. However, patient continues to require 11 L supplemental O2 Results & Data Vital Signs (Past 12 Hours) Vital Signs Temp Pulse Pulse Resp BP Pulse Ox O2 Del Method 02/09/24 15:26 36.4 C L 109 H 20 124/77 93 High Flow Nasal Cannula 02/09/24 15:06 113 H 02/09/24 14:17 111 H 20 93 Nasal Cannula 02/09/24 12:17 36.4 C L 118 H 24 141/82 H 92 High Flow Nasal Cannula 02/09/24 10:47 105 H 18 95 Nasal Cannula 02/09/24 08:00 36.5 C 109 H 24 124/74 94 High Flow Nasal Cannula 02/09/24 07:47 High Flow Nasal Cannula 02/09/24 07:34 103 H 02/09/24 07:18 105 H 20 96 Nasal Cannula O2 Flow Rate 02/09/24 15:26 02/09/24 15:06 02/09/24 14:17 9 02/09/24 12:17 9 02/09/24 10:47 11 02/09/24 08:00 15 02/09/24 07:47 11 02/09/24 07:34 02/09/24 07:18 13
[2024-02-10 07:12] LABS: Base Excess VBG 0.8 mEq/L; HCO3 VBG 24 mmol/L; Oxygen Saturation VBG 96.5 %; PCO2 VBG 34 mmHg (38-50); PO2 VBG 79 mmHg; pH VBG 7.46 (7.36-7.41)
[2024-02-10 07:19] LABS: Hematocrit (blood only) 42.5 % (42.0-52.0); Hemoglobin 14.4 g/dl (14.0-18.0); Mean Corpuscular Hemoglobin 30.1 pg (25.0-34.0); Mean Corpuscular Hgb Conc 33.9 g/dL (32.0-36.0); Mean Corpuscular Volume 88.9 fL (80.0-100.0); Mean Platelet Volume 9.8 fL (9.4-12.4); Platelet Count 401 K/uL (130-400); RDW Coefficient of Variation 12.9 % (11.5-14.5); RDW Standard Deviation 42.2 fL (36.4-46.3); Red Blood Count 4.78 M/uL (4.70-6.10)
[2024-02-10 07:32] LABS: BUN Creatinine Ratio 25.7 (10-20); C Reactive Protein 4.76 mg/dl (0-0.5); Calcium 10.2 mg/dl (8.6-10.3); Creatinine Clr Calc Pharmacy 62.7 ml/min; Est GFR (African American) 81.2 ml/min; Est GFR (Non-African American) 70.1 ml/min; Potassium 4.7 mmol/L (3.5-5.1)
--- NOTE | 2024-02-10 08:23 | Pulmonology Progress Note ---
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): (8) Exertional shortness of breath: (9) Pleural effusion: (10) Adenocarcinoma of lung: Plan -- Acute on chronic hypoxic respiratory failure Likely secondary to multilobar pneumonia with left-sided pleural effusion Procalcitonin 0.11, respiratory bio fire negative for everything on 02/03/2024, nasal MRSA negative BNP 8 S/p left sided thoracentesis 02/06/2024, 750 mL of bloody fluid was removed, exudative as per lights criteria Pleural fluid: LDH 3153, protein 5.2, pH 7.2, RBCs 1.56 million Serum: LDH 566, protein 7.1 Fluid cytology is positive for adenocarcinoma of the lung -- 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 At home on Wixela high-dose along with Incruse Continue with same regimen Continue with Mucinex for chronic bronchitis Spirometry 11/30/2023 personally reviewed: Nonspecific spirometry, no obstructive lung dysfunction FVC 1.89 L 46%, FEV1 1.46 L 46%, FEV1/FVC 77 --Abnormal chest CT Patient seems to have traction bronchiectasis as well as scarring which is more prominent on the left side in the lingula Honeycombing is also appreciated on the periphery Was exposed to agent orange as well as [place] No personal or family history of any autoimmune disease like lupus, sarcoid, Sjogren's, rheumatoid Denies any Raynaud's Autoimmune workup negative for everything Hypersensitive pneumonitis workup was positive for a lot of things, 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 Case was discussed with RN and primary team Please note the above document was generated using voice recognition software. It may contain grammatical, syntax or spelling errors.Any formal questions or concerns about the content, text or information contained within the body of this dictation should be directly addressed to the provider for clarification. Please note the above document was generated using voice recognition software. It may contain grammatical, syntax or spelling errors.Any formal questions or concerns about the content, text or information contained within the body of this dictation should be directly addressed to the provider for clarification. Admission and Anticipated Discharge Date Admission Date: February 03, 2024 Subjective Patient seen and examined at bedside. No acute distress, no adverse events overnight He was saturating 93% on 10 L nasal cannula. Denies any chest pain. Shortness of breath is still there on minimal exertion No nausea vomiting Appetite is poor No hemoptysis Review of Systems 2 Review of Systems: All systems reviewed & are unremarkable except as noted in Subjective Physical Exam 2 Physical Exam: Constitutional: No acute distress HEENT: EOMI, PERRLA Respiratory system: Decreased air entry bilaterally, more decreased on the left, positive Velcro-like crackles appreciated bilaterally, no wheeze, no rhonchi CVS: S1-S2 positive, no murmurs or gallops, tachycardia, accentuated P2 Abdomen: Soft, nontender, nondistended, positive bowel sounds x4 Extremities: +2 pulses bilaterally radialis, no cyanosis, +1 pitting edema bilateral lower extremity, no clubbing Neuro: Awake alert oriented x3 Psych: Normal mood and affect G/U: No Lira Skin: no rashes, warm and dry Lymphatic: no cervical or axillary lymphadenopathy Results & Data Results & Data Vital Signs (Past 12 Hours) Vital Signs Temp Pulse Pulse Resp BP BP Pulse Ox 02/10/24 08:10 36.6 C 126 H 21 128/80 95 02/10/24 07:22 105 H 18 96 02/10/24 03:38 36.7 C 107 H 20 126/79 96 02/10/24 03:09 117 H 18 93 02/09/24 23:21 36.8 C 114 H 18 127/82 93 02/09/24 22:24 111 H 18 95 02/09/24 21:59 115 H 02/09/24 21:00 O2 Del Method O2 Flow Rate 02/10/24 08:10 High Flow Nasal Cannula 02/10/24 07:22 Nasal Cannula 02/10/24 03:38 Nasal Cannula 12.0 02/10/24 03:09 Nasal Cannula 11 02/09/24 23:21 Nasal Cannula 9.0 02/09/24 22:24 Nasal Cannula 9 02/09/24 21:59 02/09/24 21:00 High Flow Nasal Cannula 11 Laboratory Results 02/10/24 06:56 02/10/24 06:56 PG Care Time/CCT Total # of Minutes Spent Total Time Spent with Patient: Total time spent is greater than 50% in coordination of care (as documented) at patient's floor/unit and/or counseling patient: Coding Level of Care Code 75827 SUB INP/OBS CARE 2/35MIN Diagnoses ILD (interstitial lung disease) J84.9 Chronic bronchitis J42 Chronic respiratory failure with hypoxia J96.11 Pneumonia J18.9 Acute and chronic respiratory failure with hypoxia J96.21 COPD with emphysema J43.9 Combined pulmonary fibrosis and emphysema (CPFE) J43.9; J84.10 Exertional shortness of breath R06.02 Pleural effusion J90 Adenocarcinoma of lung C34.90
--- NOTE | 2024-02-10 13:49 | Palliative Care Consultation ---
Date of Consultation February 10, 2024 Assessment & Plan (1) Cancer related pain: Dialudid changed to Q1 and 2h interval Do no escalate oxygen, goal is symptom mgt relief (2) Palliative care by specialist: (3) Advanced care planning/counseling discussion: 45 minute [id number] advance care planning meeting was held at the bedside with patient, his 2 correctional officers from [facility] were also present for this discussion. Patient indicates a clear understanding of his terminal cancer diagnosis including that he is far too weak with the declining performance status and progressive respiratory failure currently on high flow nasal cannula oxygen to be able to tolerate any cancer directed therapies. He states that he understands this time is short and he is elected to transition his focus to comfort. He states that he has been discussing this for the past day or so with his guards, who are known to him from his incarceration as well as reviewing the events leading up to this admission and his mind. I asked him if he had family with whom he would want to share this information and he states that he has caused him so much suffering in the years past that he does not want to add to this by telling them of the cancer at this point. He shares that he has carried a lot of guilt with him through the years for the pain and distress he caused his family. He is maintained little to no contact with him through the years but knows that they are still out there should he choose to contact them. He states that he understands his time is short and he wants to focus the remaining time he has on his comfort. We discussed the option of returning to the medical unit at the residential with an ongoing comfort plan of care for end-of-life symptom management. He was in agreement with this. Later in our conversation, he returned to the topic of his family and stated that he is wondering if perhaps he should notify them because he Wonders if it would hurt them more to find out after his when perhaps he could have had a chance to say goodbye to them. I told him that it might be worthwhile to pursue notifying them through his present counselor and see if they wish to have contact. This way at least the choices in everybody's hands. We discussed symptom management needs and I have optimize his pain management orders a little bit more. He is currently on high flow nasal cannula it is unclear if the [place] [facility] unit can perform high flow and I will defer this to both care management and the primary team to discern. In all likelihood, the medical unit at the present can continue high flow support for him and opioid therapy for ongoing pain and symptom management. They do not carry transdermal fentanyl in the unit and therefore he will need to use oral oxycodone or oral morphine liquid. He has elected to transition to comfort care. Orders have been written. I have notified nursing of the primary team. (4) Anxiety: (5) Adenocarcinoma of lung: (6) Acute and chronic respiratory failure with hypoxia: (7) ILD (interstitial lung disease): Plan As above. Please note: the above document was generated using voice recognition software. It may contain unintentional grammatical, syntax or spelling errors. Any formal questions or concerns about the content, text or information contained within the body of this dictation should be directly addressed to the provider for clarification. Thank you for allowing us to participate in the ongoing care of this patient. Please page with any additional concerns. Jermain Chopra DNP Director, Palliative Medicine History of Present Illness Reason for Consultation: goals Attending Physician: Jean-Paul Jones History of Present Illness Mr. 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 Inpatient chemotherapy for non-small cell lung cancer not likely to help Improve oxygenation. Suspect that hypoxia mainly contributed by interstitial lung disease and pneumonia. Poor candidate for chemotherapy at this time unless oxygen demand decreases. Patient is very realistic and indicates that he would prefer supportive care at this point unless performance status and hypoxia improves. PMH: COPD, Pulmonary fibrosis as well as DM, HTN, Hypothyroidism and GERD presenting with acute on chronic respiratory failure with hypoxia. Patient wears 5L of supplemental O2 by NC at baseline. former 1-2 PPD x 57yr Currently on HFNC 10liters Allergies Allergy/AdvReac Type Severity Reaction Status Date / Time No Known Allergies Allergy Verified 02/04/24 02:17 Home Medications Medication Instructions Recorded Confirmed Type albuterol sulfate 90 mcg/actuation 2 puff inhalation QID PRN 02/03/24 02/03/24 History aerosol inhaler Shortness Of Breath Or Wheezing amlodipine 10 mg tablet 10 mg PO DAILY 02/03/24 02/03/24 History cholecalciferol (vitamin D3) 25 50 mcg PO DAILY 02/03/24 02/03/24 History mcg (1,000 unit) capsule (Vitamin D3) docusate sodium 100 mg capsule 100 mg PO BID 02/03/24 02/03/24 History fluticasone 500 mcg-salmeterol 50 1 inh inhalation BID 02/03/24 02/03/24 History mcg/dose blistr powdr for inhalation (Wixela Inhub) glipizide 10 mg tablet 10 mg PO BID 02/03/24 02/03/24 History guaifenesin 400 mg tablet 400 mg PO TID 02/03/24 02/03/24 History ibuprofen 600 mg tablet 600 mg PO TID PRN Pain 02/03/24 02/03/24 History levothyroxine 88 mcg tablet 88 mcg PO DAILY 02/03/24 02/03/24 History metformin 850 mg tablet 850 mg PO BID 02/03/24 02/03/24 History omeprazole 20 mg tablet,delayed 20 mg PO DAILY 02/03/24 02/03/24 History release oxycodone 5 mg tablet 10 mg PO TID 02/03/24 02/03/24 History rosuvastatin 10 mg tablet 10 mg PO HS 02/03/24 02/03/24 History umeclidinium 62.5 mcg/actuation 1 inh inhalation DAILY 02/03/24 02/03/24 History blister powder for inhalation (Incruse Ellipta) Patient History Medical History (Updated 02/10/24 @ 14:02 by Nani Chopra DNP) GERD (gastroesophageal reflux disease) Hypothyroid Diabetes Hypertension Personal history of colonic polyps Pulmonary fibrosis Vitamin D deficiency Surgical History (Updated 02/04/24 @ 00:47 by Daylin Lantigua DO) History of hernia repair History of cholecystectomy Family History (Updated 02/04/24 @ 00:46 by Daylin Lantigua DO) Brother Cancer Lung cancer Mother Cancer Breast cancer Social History Smoking Status: Former smoker Tobacco Type: Cigarettes Age Started Using Tobacco: 8; Age Quit Using Tobacco: 65; packs per day: 2; Second Hand Exposure: No; Do You Dip or Chew Tobacco: No; Hx Alcohol Use: No Hx Substance Use: No Preferred Language: Afghan Communication Ability: Effective Staff Development Educator Required: No Beliefs That Will Affect Care: None Current Living Situation: Other Current Living Situation Comment: residential Feels Safe at Home: Yes Assistive Devices: Oxygen - Continuous Review of Systems Review of Systems: All systems reviewed & are unremarkable except as noted in Subjective Physical Exam Constitutional: + acute distress, + thin, + frail appear ing and cooperative Eyes: PERRL, conjunctivae normal, anicteric sclerae ENMT: Ears: + hearing impairment (mild) Mouth: + dry oral mucous membranes, + gingival abnormality, + edentulous and + poor dentition Respiratory: + respiratory distress, + cough, + purse d lip breathing and symmetric chest movement; + not able to speak in complete sentence Auscultation: + diminished lung sounds and + rhonchi Cardiovascular: Rate/Rhythm: + tachycardic Gastrointestinal (Abdomen): normal bowel sounds, soft, nontender, no hepatosplenomegaly Musculoskeletal: Spine: + thoracic spinal tenderness, + lumbar spinal tenderness and + paraspinal tenderness Skin: + turgor decreased and + dry skin Neurologic: AAOx3 Psychiatric: Orientation: alert and oriented x 3 Apperance: appropriately dressed and appropriately groomed Eye Contact: good eye contact Speech: normal rate/rhythm/volume of speech Affect: + depressed affect, + anxious affect and + tearful affect Mood: + depressed mood Thought Process: clear/coherent thought process Thought Content: + loneliness, + guilt and + self deprecation Suicidal Thoughts: denies suicidal thoughts Homicidal Thoughts: denies homicidal thoughts Estimated Intelligence: consistent with education level Insight: good insight Results & Data Vital Signs (Past 12 Hours) Vital Signs Temp Pulse Pulse Resp BP BP Pulse Ox 02/10/24 12:12 36.8 C 126 H 20 129/83 94 02/10/24 11:19 88 L 02/10/24 11:18 84 L 02/10/24 10:15 106 H 20 94 02/10/24 08:10 36.6 C 126 H 21 128/80 95 02/10/24 08:00 02/10/24 07:22 105 H 18 96 02/10/24 07:00 100 H 02/10/24 03:38 36.7 C 107 H 20 126/79 96 02/10/24 03:09 117 H 18 93 O2 Del Method O2 Flow Rate 02/10/24 12:12 High Flow Nasal Cannula 02/10/24 11:19 High Flow Nasal Cannula 10 02/10/24 11:18 High Flow Nasal Cannula 8 02/10/24 10:15 Nasal Cannula 10 02/10/24 08:10 High Flow Nasal Cannula 10 02/10/24 08:00 High Flow Nasal Cannula 02/10/24 07:22 Nasal Cannula 13 02/10/24 07:00 02/10/24 03:38 Nasal Cannula 12.0 02/10/24 03:09 Nasal Cannula 11 Laboratory Results 02/10/24 02/10/24 02/10/24 Range/Units 12:07 07:59 06:56 WBC 12.50 H (4.8-10.8) K/ul RBC 4.78 (4.70-6.10) M/uL Hgb 14.4 (14.0-18.0) g/dl Hct 42.5 (42.0-52.0) % MCV 88.9 (80.0-100.0) fL MCH 30.1 (25.0-34.0) pg MCHC 33.9 (32.0-36.0) g/dL RDW Std Deviation 42.2 (36.4-46.3) fL RDW Coeff of Chevy 12.9 (11.5-14.5) % Plt Count 401 H (130-400) K/uL MPV 9.8 (9.4-12.4) fL Immature Gran % (Auto) % Neut % (Auto) % Lymph % (Auto) % Sunflower % (Auto) % Eos % (Auto) % Baso % (Auto) % Neut # (Auto) (1.40-6.50) K/uL Lymph # (Auto) (1.20-3.40) K/uL Sunflower # (Auto) (0.11-0.59) K/uL Eos # (Auto) (0.00-0.50) K/uL Baso # (Auto) (0.00-0.20) K/uL Immature Gran # (Auto) (0.01-0.20) K/uL PT (9.0-12.0) Seconds INR (0.9-1.1) APTT (21-31) Seconds PTT Ratio VBG pH 7.46 H (7.36-7.41) VBG pCO2 34 L (38-50) mmHg VBG pO2 79 mmHg VBG HCO3 24 mmol/L VBG O2 Saturation 96.5 % VBG Base Excess 0.8 mEq/L Sodium 128 L (136-145) mmol/L Potassium 4.7 (3.5-5.1) mmol/L Chloride 98 (98-107) mmol/L Carbon Dioxide 23 (21-32) mmol/L Anion Gap 7 (3-11) BUN 27 H (6-23) mg/dl Creatinine 1.05 (0.6-1.4) mg/dl Est Cr Clr Drug Dosing 62.7 ml/min Est GFR ( Amer) 81.2 ml/min Est GFR (Non-Af Amer) 70.1 ml/min BUN/Creatinine Ratio 25.7 H (10-20) Glucose 145 H (70-99(Fasting)) mg/dl POC Glucose 130 H 152 H (70-99) mg/dl Calcium 10.2 (8.6-10.3) mg/dl Phosphorus (2.5-4.9) mg/dl Magnesium (1.7-2.4) mg/dl Total Bilirubin (0.2-1.0) mg/dl Direct Bilirubin (0-0.2) mg/dl AST (13-39) U/L ALT (7-52) U/L Alkaline Phosphatase (34-104) U/L Lactate Dehydrogenase (86-244) U/L Troponin I High Sens (0-20) pg/ml C-Reactive Protein 4.76 H (0-0.5) mg/dl B-Natriuretic Peptide (0-100) pg/ml Total Protein (6.0-8.3) gm/dl Albumin (3.4-5.0) gm/dl Globulin (2.5-4.0) gm/dl Albumin/Globulin Ratio (0.9-2) Tumor Marker AFP (<6.1) ng/mL Carcinoembryonic Ag (0-2.5) ng/ml CA 19-9 Antigen (<34) U/mL Prostate Specific Ag (0-4) ng/ml Procalcitonin 0.25 (0-0.5) ng/ml TSH (0.300-4.500) uIu/ml Fluid Neutrophils % % Fluid Lymphocytes % % Fluid Meso/Macro/Sunflower % % Fluid Slide Review Fluid Comment Pleural Fluid Source Pleural Color Pleural Appearance Pleural pH (7.3-7.4) Pleural WBC (Auto) /uL Pleural RBC (Auto) /uL Pleural Total Protein gm/dl Pleural LDH U/L Pleural Glucose mg/dl Pleural Amylase U/L Nasal Screen MRSA (PCR) (Negative) Azul-TRK (IHC) Adenovirus (PCR) (NotDetected) B. pertussis DNA (PCR) (NotDetected) B.parapertussis DNA PCR (NotDetected) C. pneumoniae DNA (PCR) (NotDetected) Coronavirus OC43 (PCR) (NotDetected) Coronavirus HKU1 (PCR) (NotDetected) Coronavirus 229E (PCR) (NotDetected) SARS-CoV-2 (PCR) (NotDetected) Coronavirus NL63 (PCR) (NotDetected) Hepatitis C Ab (EIA) (NON-REACTIVE) Human Metapneumovir PCR (NotDetected) Influenza Type A (PCR) (NotDetected) Influenza Type B (PCR) (NotDetected) M. pneumoniae (PCR) (NotDetected) Parainfluenza 1 (PCR) (NotDetected) Parainfluenza 2 (PCR) (NotDetected) Parainfluenza 3 (PCR) (NotDetected) Parainfluenza 4 (PCR) (NotDetected) RSV (PCR) (NotDetected) Entero/Rhino (PCR) (NotDetected) Lung Tumor Pnl Analysis FISH Oncology MET Exon 14 Skipping IHC Stain and Interp 02/09/24 02/09/24 02/09/24 Range/Units 20:11 16:08 11:51 WBC (4.8-10.8) K/ul RBC (4.70-6.10) M/uL Hgb (14.0-18.0) g/dl Hct (42.0-52.0) % MCV (80.0-100.0) fL MCH (25.0-34.0) pg MCHC (32.0-36.0) g/dL RDW Std Deviation (36.4-46.3) fL RDW Coeff of Chevy (11.5-14.5) % Plt Count (130-400) K/uL MPV (9.4-12.4) fL Immature Gran % (Auto) % Neut % (Auto) % Lymph % (Auto) % Sunflower % (Auto) % Eos % (Auto) % Baso % (Auto) % Neut # (Auto) (1.40-6.50) K/uL Lymph # (Auto) (1.20-3.40) K/uL Sunflower # (Auto) (0.11-0.59) K/uL Eos # (Auto) (0.00-0.50) K/uL Baso # (Auto) (0.00-0.20) K/uL Immature Gran # (Auto) (0.01-0.20) K/uL PT (9.0-12.0) Seconds INR (0.9-1.1) APTT (21-31) Seconds PTT Ratio VBG pH (7.36-7.41) VBG pCO2 (38-50) mmHg VBG pO2 mmHg VBG HCO3 mmol/L VBG O2 Saturation % VBG Base Excess mEq/L Sodium (136-145) mmol/L Potassium (3.5-5.1) mmol/L Chloride (98-107) mmol/L Carbon Dioxide (21-32) mmol/L Anion Gap (3-11) BUN (6-23) mg/dl Creatinine (0.6-1.4) mg/dl Est Cr Clr Drug Dosing ml/min Est GFR ( Amer) ml/min Est GFR (Non-Af Amer) ml/min BUN/Creatinine Ratio (10-20) Glucose (70-99(Fasting)) mg/dl POC Glucose 135 H 101 H 109 H (70-99) mg/dl Calcium (8.6-10.3) mg/dl Phosphorus (2.5-4.9) mg/dl Magnesium (1.7-2.4) mg/dl Total Bilirubin (0.2-1.0) mg/dl Direct Bilirubin (0-0.2) mg/dl AST (13-39) U/L ALT (7-52) U/L Alkaline Phosphatase (34-104) U/L Lactate Dehydrogenase (86-244) U/L Troponin I High Sens (0-20) pg/ml C-Reactive Protein (0-0.5) mg/dl B-Natriuretic Peptide (0-100) pg/ml Total Protein (6.0-8.3) gm/dl Albumin (3.4-5.0) gm/dl Globulin (2.5-4.0) gm/dl Albumin/Globulin Ratio (0.9-2) Tumor Marker AFP (<6.1) ng/mL Carcinoembryonic Ag (0-2.5) ng/ml CA 19-9 Antigen (<34) U/mL Prostate Specific Ag (0-4) ng/ml Procalcitonin (0-0.5) ng/ml TSH (0.300-4.500) uIu/ml Fluid Neutrophils % % Fluid Lymphocytes % % Fluid Meso/Macro/Sunflower % % Fluid Slide Review Fluid Comment Pleural Fluid Source Pleural Color Pleural Appearance Pleural pH (7.3-7.4) Pleural WBC (Auto) /uL Pleural RBC (Auto) /uL Pleural Total Protein gm/dl Pleural LDH U/L Pleural Glucose mg/dl Pleural Amylase U/L Nasal Screen MRSA (PCR) (Negative) Azul-TRK (IHC) Adenovirus (PCR) (NotDetected) B. pertussis DNA (PCR) (NotDetected) B.parapertussis DNA PCR (NotDetected) C. pneumoniae DNA (PCR) (NotDetected) Coronavirus OC43 (PCR) (NotDetected) Coronavirus HKU1 (PCR) (NotDetected) Coronavirus 229E (PCR) (NotDetected) SARS-CoV-2 (PCR) (NotDetected) Coronavirus NL63 (PCR) (NotDetected) Hepatitis C Ab (EIA) (NON-REACTIVE) Human Metapneumovir PCR (NotDetected) Influenza Type A (PCR) (NotDetected) Influenza Type B (PCR) (NotDetected) M. pneumoniae (PCR) (NotDetected) Parainfluenza 1 (PCR) (NotDetected) Parainfluenza 2 (PCR) (NotDetected) Parainfluenza 3 (PCR) (NotDetected) Parainfluenza 4 (PCR) (NotDetected) RSV (PCR) (NotDetected) Entero/Rhino (PCR) (NotDetected) Lung Tumor Pnl Analysis FISH Oncology MET Exon 14 Skipping IHC Stain and Interp 02/09/24 02/09/24 02/08/24 Range/Units 08:04 07:27 20:04 WBC 14.28 H (4.8-10.8) K/ul RBC 4.87 (4.70-6.10) M/uL Hgb 14.7 (14.0-18.0) g/dl Hct 43.7 (42.0-52.0) % MCV 89.7 (80.0-100.0) fL MCH 30.2 (25.0-34.0) pg MCHC 33.6 (32.0-36.0) g/dL RDW Std Deviation 43.1 (36.4-46.3) fL RDW Coeff of Chevy 13.2 (11.5-14.5) % Plt Count 386 (130-400) K/uL MPV 9.9 (9.4-12.4) fL Immature Gran % (Auto) % Neut % (Auto) % Lymph % (Auto) % Sunflower % (Auto) % Eos % (Auto) % Baso % (Auto) % Neut # (Auto) (1.40-6.50) K/uL Lymph # (Auto) (1.20-3.40) K/uL Sunflower # (Auto) (0.11-0.59) K/uL Eos # (Auto) (0.00-0.50) K/uL Baso # (Auto) (0.00-0.20) K/uL Immature Gran # (Auto) (0.01-0.20) K/uL PT (9.0-12.0) Seconds INR (0.9-1.1) APTT (21-31) Seconds PTT Ratio VBG pH (7.36-7.41) VBG pCO2 (38-50) mmHg VBG pO2 mmHg VBG HCO3 mmol/L VBG O2 Saturation % VBG Base Excess mEq/L Sodium 130 L (136-145) mmol/L Potassium 5.4 H (3.5-5.1) mmol/L Chloride 98 (98-107) mmol/L Carbon Dioxide 25 (21-32) mmol/L Anion Gap 7 (3-11) BUN 28 H (6-23) mg/dl Creatinine 1.07 (0.6-1.4) mg/dl Est Cr Clr Drug Dosing 61.5 ml/min Est GFR ( Amer) 79.4 ml/min Est GFR (Non-Af Amer) 68.5 ml/min BUN/Creatinine Ratio 26.2 H (10-20) Glucose 128 H (70-99(Fasting)) mg/dl POC Glucose 129 H 170 H (70-99) mg/dl Calcium 10.4 H (8.6-10.3) mg/dl Phosphorus (2.5-4.9) mg/dl Magnesium (1.7-2.4) mg/dl Total Bilirubin (0.2-1.0) mg/dl Direct Bilirubin (0-0.2) mg/dl AST (13-39) U/L ALT (7-52) U/L Alkaline Phosphatase (34-104) U/L Lactate Dehydrogenase (86-244) U/L Troponin I High Sens (0-20) pg/ml C-Reactive Protein (0-0.5) mg/dl B-Natriuretic Peptide (0-100) pg/ml Total Protein (6.0-8.3) gm/dl Albumin (3.4-5.0) gm/dl Globulin (2.5-4.0) gm/dl Albumin/Globulin Ratio (0.9-2) Tumor Marker AFP (<6.1) ng/mL Carcinoembryonic Ag (0-2.5) ng/ml CA 19-9 Antigen (<34) U/mL Prostate Specific Ag (0-4) ng/ml Procalcitonin (0-0.5) ng/ml TSH (0.300-4.500) uIu/ml Fluid Neutrophils % % Fluid Lymphocytes % % Fluid Meso/Macro/Sunflower % % Fluid Slide Review Fluid Comment Pleural Fluid Source Pleural Color Pleural Appearance Pleural pH (7.3-7.4) Pleural WBC (Auto) /uL Pleural RBC (Auto) /uL Pleural Total Protein gm/dl Pleural LDH U/L Pleural Glucose mg/dl Pleural Amylase U/L Nasal Screen MRSA (PCR) (Negative) Azul-TRK (IHC) Adenovirus (PCR) (NotDetected) B. pertussis DNA (PCR) (NotDetected) B.parapertussis DNA PCR (NotDetected) C. pneumoniae DNA (PCR) (NotDetected) Coronavirus OC43 (PCR) (NotDetected) Coronavirus HKU1 (PCR) (NotDetected) Coronavirus 229E (PCR) (NotDetected) SARS-CoV-2 (PCR) (NotDetected) Coronavirus NL63 (PCR) (NotDetected) Hepatitis C Ab (EIA) (NON-REACTIVE) Human Metapneumovir PCR (NotDetected) Influenza Type A (PCR) (NotDetected) Influenza Type B (PCR) (NotDetected) M. pneumoniae (PCR) (NotDetected) Parainfluenza 1 (PCR) (NotDetected) Parainfluenza 2 (PCR) (NotDetected) Parainfluenza 3 (PCR) (NotDetected) Parainfluenza 4 (PCR) (NotDetected) RSV (PCR) (NotDetected) Entero/Rhino (PCR) (NotDetected) Lung Tumor Pnl Analysis FISH Oncology MET Exon 14 Skipping IHC Stain and Interp 02/08/24 02/08/24 02/08/24 Range/Units 16:15 10:58 07:33 WBC (4.8-10.8) K/ul RBC (4.70-6.10) M/uL Hgb (14.0-18.0) g/dl Hct (42.0-52.0) % MCV (80.0-100.0) fL MCH (25.0-34.0) pg MCHC (32.0-36.0) g/dL RDW Std Deviation (36.4-46.3) fL RDW Coeff of Chevy (11.5-14.5) % Plt Count (130-400) K/uL MPV (9.4-12.4) fL Immature Gran % (Auto) % Neut % (Auto) % Lymph % (Auto) % Sunflower % (Auto) % Eos % (Auto) % Baso % (Auto) % Neut # (Auto) (1.40-6.50) K/uL Lymph # (Auto) (1.20-3.40) K/uL Sunflower # (Auto) (0.11-0.59) K/uL Eos # (Auto) (0.00-0.50) K/uL Baso # (Auto) (0.00-0.20) K/uL Immature Gran # (Auto) (0.01-0.20) K/uL PT (9.0-12.0) Seconds INR (0.9-1.1) APTT (21-31) Seconds PTT Ratio VBG pH (7.36-7.41) VBG pCO2 (38-50) mmHg VBG pO2 mmHg VBG HCO3 mmol/L VBG O2 Saturation % VBG Base Excess mEq/L Sodium (136-145) mmol/L Potassium (3.5-5.1) mmol/L Chloride (98-107) mmol/L Carbon Dioxide (21-32) mmol/L Anion Gap (3-11) BUN (6-23) mg/dl Creatinine (0.6-1.4) mg/dl Est Cr Clr Drug Dosing ml/min Est GFR ( Amer) ml/min Est GFR (Non-Af Amer) ml/min BUN/Creatinine Ratio (10-20) Glucose (70-99(Fasting)) mg/dl POC Glucose 142 H 146 H 113 H (70-99) mg/dl Calcium (8.6-10.3) mg/dl Phosphorus (2.5-4.9) mg/dl Magnesium (1.7-2.4) mg/dl Total Bilirubin (0.2-1.0) mg/dl Direct Bilirubin (0-0.2) mg/dl AST (13-39) U/L ALT (7-52) U/L Alkaline Phosphatase (34-104) U/L Lactate Dehydrogenase (86-244) U/L Troponin I High Sens (0-20) pg/ml C-Reactive Protein (0-0.5) mg/dl B-Natriuretic Peptide (0-100) pg/ml Total Protein (6.0-8.3) gm/dl Albumin (3.4-5.0) gm/dl Globulin (2.5-4.0) gm/dl Albumin/Globulin Ratio (0.9-2) Tumor Marker AFP (<6.1) ng/mL Carcinoembryonic Ag (0-2.5) ng/ml CA 19-9 Antigen (<34) U/mL Prostate Specific Ag (0-4) ng/ml Procalcitonin (0-0.5) ng/ml TSH (0.300-4.500) uIu/ml Fluid Neutrophils % % Fluid Lymphocytes % % Fluid Meso/Macro/Sunflower % % Fluid Slide Review Fluid Comment Pleural Fluid Source Pleural Color Pleural Appearance Pleural pH (7.3-7.4) Pleural WBC (Auto) /uL Pleural RBC (Auto) /uL Pleural Total Protein gm/dl Pleural LDH U/L Pleural Glucose mg/dl Pleural Amylase U/L Nasal Screen MRSA (PCR) (Negative) Azul-TRK (IHC) Adenovirus (PCR) (NotDetected) B. pertussis DNA (PCR) (NotDetected) B.parapertussis DNA PCR (NotDetected) C. pneumoniae DNA (PCR) (NotDetected) Coronavirus OC43 (PCR) (NotDetected) Coronavirus HKU1 (PCR) (NotDetected) Coronavirus 229E (PCR) (NotDetected) SARS-CoV-2 (PCR) (NotDetected) Coronavirus NL63 (PCR) (NotDetected) Hepatitis C Ab (EIA) (NON-REACTIVE) Human Metapneumovir PCR (NotDetected) Influenza Type A (PCR) (NotDetected) Influenza Type B (PCR) (NotDetected) M. pneumoniae (PCR) (NotDetected) Parainfluenza 1 (PCR) (NotDetected) Parainfluenza 2 (PCR) (NotDetected) Parainfluenza 3 (PCR) (NotDetected) Parainfluenza 4 (PCR) (NotDetected) RSV (PCR) (NotDetected) Entero/Rhino (PCR) (NotDetected) Lung Tumor Pnl Analysis FISH Oncology MET Exon 14 Skipping IHC Stain and Interp 02/08/24 02/07/24 02/07/24 Range/Units 05:41 20:23 16:29 WBC 14.57 H (4.8-10.8) K/ul RBC 4.51 L (4.70-6.10) M/uL Hgb 14.0 (14.0-18.0) g/dl Hct 40.4 L (42.0-52.0) % MCV 89.6 (80.0-100.0) fL MCH 31.0 (25.0-34.0) pg MCHC 34.7 (32.0-36.0) g/dL RDW Std Deviation 42.9 (36.4-46.3) fL RDW Coeff of Chevy 13.2 (11.5-14.5) % Plt Count 368 (130-400) K/uL MPV 9.8 (9.4-12.4) fL Immature Gran % (Auto) % Neut % (Auto) % Lymph % (Auto) % Sunflower % (Auto) % Eos % (Auto) % Baso % (Auto) % Neut # (Auto) (1.40-6.50) K/uL Lymph # (Auto) (1.20-3.40) K/uL Sunflower # (Auto) (0.11-0.59) K/uL Eos # (Auto) (0.00-0.50) K/uL Baso # (Auto) (0.00-0.20) K/uL Immature Gran # (Auto) (0.01-0.20) K/uL PT (9.0-12.0) Seconds INR (0.9-1.1) APTT (21-31) Seconds PTT Ratio VBG pH (7.36-7.41) VBG pCO2 (38-50) mmHg VBG pO2 mmHg VBG HCO3 mmol/L VBG O2 Saturation % VBG Base Excess mEq/L Sodium 129 L (136-145) mmol/L Potassium 5.0 (3.5-5.1) mmol/L Chloride 98 (98-107) mmol/L Carbon Dioxide 22 (21-32) mmol/L Anion Gap 9 (3-11) BUN 26 H (6-23) mg/dl Creatinine 1.15 (0.6-1.4) mg/dl Est Cr Clr Drug Dosing 57.2 ml/min Est GFR ( Amer) 72.8 ml/min Est GFR (Non-Af Amer) 62.8 ml/min BUN/Creatinine Ratio 22.6 H (10-20) Glucose 119 H (70-99(Fasting)) mg/dl POC Glucose 119 H 130 H (70-99) mg/dl Calcium 9.8 (8.6-10.3) mg/dl Phosphorus (2.5-4.9) mg/dl Magnesium (1.7-2.4) mg/dl Total Bilirubin (0.2-1.0) mg/dl Direct Bilirubin (0-0.2) mg/dl AST (13-39) U/L ALT (7-52) U/L Alkaline Phosphatase (34-104) U/L Lactate Dehydrogenase (86-244) U/L Troponin I High Sens (0-20) pg/ml C-Reactive Protein (0-0.5) mg/dl B-Natriuretic Peptide (0-100) pg/ml Total Protein (6.0-8.3) gm/dl Albumin (3.4-5.0) gm/dl Globulin (2.5-4.0) gm/dl Albumin/Globulin Ratio (0.9-2) Tumor Marker AFP (<6.1) ng/mL Carcinoembryonic Ag (0-2.5) ng/ml CA 19-9 Antigen (<34) U/mL Prostate Specific Ag (0-4) ng/ml Procalcitonin (0-0.5) ng/ml TSH (0.300-4.500) uIu/ml Fluid Neutrophils % % Fluid Lymphocytes % % Fluid Meso/Macro/Sunflower % % Fluid Slide Review Fluid Comment Pleural Fluid Source Pleural Color Pleural Appearance Pleural pH (7.3-7.4) Pleural WBC (Auto) /uL Pleural RBC (Auto) /uL Pleural Total Protein gm/dl Pleural LDH U/L Pleural Glucose mg/dl Pleural Amylase U/L Nasal Screen MRSA (PCR) (Negative) Azul-TRK (IHC) Adenovirus (PCR) (NotDetected) B. pertussis DNA (PCR) (NotDetected) B.parapertussis DNA PCR (NotDetected) C. pneumoniae DNA (PCR) (NotDetected) Coronavirus OC43 (PCR) (NotDetected) Coronavirus HKU1 (PCR) (NotDetected) Coronavirus 229E (PCR) (NotDetected) SARS-CoV-2 (PCR) (NotDetected) Coronavirus NL63 (PCR) (NotDetected) Hepatitis C Ab (EIA) (NON-REACTIVE) Human Metapneumovir PCR (NotDetected) Influenza Type A (PCR) (NotDetected) Influenza Type B (PCR) (NotDetected) M. pneumoniae (PCR) (NotDetected) Parainfluenza 1 (PCR) (NotDetected) Parainfluenza 2 (PCR) (NotDetected) Parainfluenza 3 (PCR) (NotDetected) Parainfluenza 4 (PCR) (NotDetected) RSV (PCR) (NotDetected) Entero/Rhino (PCR) (NotDetected) Lung Tumor Pnl Analysis FISH Oncology MET Exon 14 Skipping IHC Stain and Interp 02/07/24 02/07/24 02/06/24 Range/Units 11:57 05:27 Unknown WBC 14.33 H (4.8-10.8) K/ul RBC 4.49 L (4.70-6.10) M/uL Hgb 13.7 L (14.0-18.0) g/dl Hct 40.6 L (42.0-52.0) % MCV 90.4 (80.0-100.0) fL MCH 30.5 (25.0-34.0) pg MCHC 33.7 (32.0-36.0) g/dL RDW Std Deviation 43.8 (36.4-46.3) fL RDW Coeff of Chevy 13.3 (11.5-14.5) % Plt Count 386 (130-400) K/uL MPV 10.0 (9.4-12.4) fL Immature Gran % (Auto) % Neut % (Auto) % Lymph % (Auto) % Sunflower % (Auto) % Eos % (Auto) % Baso % (Auto) % Neut # (Auto) (1.40-6.50) K/uL Lymph # (Auto) (1.20-3.40) K/uL Sunflower # (Auto) (0.11-0.59) K/uL Eos # (Auto) (0.00-0.50) K/uL Baso # (Auto) (0.00-0.20) K/uL Immature Gran # (Auto) (0.01-0.20) K/uL PT (9.0-12.0) Seconds INR (0.9-1.1) APTT (21-31) Seconds PTT Ratio VBG pH (7.36-7.41) VBG pCO2 (38-50) mmHg VBG pO2 mmHg VBG HCO3 mmol/L VBG O2 Saturation % VBG Base Excess mEq/L Sodium 133 L (136-145) mmol/L Potassium 4.5 (3.5-5.1) mmol/L Chloride 99 (98-107) mmol/L Carbon Dioxide 25 (21-32) mmol/L Anion Gap 9 (3-11) BUN 24 H (6-23) mg/dl Creatinine 1.14 (0.6-1.4) mg/dl Est Cr Clr Drug Dosing 57.7 ml/min Est GFR ( Amer) 73.5 ml/min Est GFR (Non-Af Amer) 63.4 ml/min BUN/Creatinine Ratio 21.1 H (10-20) Glucose 115 H (70-99(Fasting)) mg/dl POC Glucose 104 H (70-99) mg/dl Calcium 9.6 (8.6-10.3) mg/dl Phosphorus (2.5-4.9) mg/dl Magnesium (1.7-2.4) mg/dl Total Bilirubin (0.2-1.0) mg/dl Direct Bilirubin (0-0.2) mg/dl AST (13-39) U/L ALT (7-52) U/L Alkaline Phosphatase (34-104) U/L Lactate Dehydrogenase (86-244) U/L Troponin I High Sens (0-20) pg/ml C-Reactive Protein (0-0.5) mg/dl B-Natriuretic Peptide (0-100) pg/ml Total Protein (6.0-8.3) gm/dl Albumin (3.4-5.0) gm/dl Globulin (2.5-4.0) gm/dl Albumin/Globulin Ratio (0.9-2) Tumor Marker AFP (<6.1) ng/mL Carcinoembryonic Ag (0-2.5) ng/ml CA 19-9 Antigen (<34) U/mL Prostate Specific Ag (0-4) ng/ml Procalcitonin (0-0.5) ng/ml TSH (0.300-4.500) uIu/ml Fluid Neutrophils % 37 % Fluid Lymphocytes % 16 % Fluid Meso/Macro/Sunflower % 47 % Fluid Slide Review Fluid Comment Pleural Fluid Source Left Lung Pleural Color Red Pleural Appearance Cloudy Pleural pH 7.20 L (7.3-7.4) Pleural WBC (Auto) 3653 /uL Pleural RBC (Auto) [id number] /uL Pleural Total Protein 5.2 gm/dl Pleural LDH 3153 U/L Pleural Glucose 35 mg/dl Pleural Amylase 247 U/L Nasal Screen MRSA (PCR) (Negative) Azul-TRK (IHC) Adenovirus (PCR) (NotDetected) B. pertussis DNA (PCR) (NotDetected) B.parapertussis DNA PCR (NotDetected) C. pneumoniae DNA (PCR) (NotDetected) Coronavirus OC43 (PCR) (NotDetected) Coronavirus HKU1 (PCR) (NotDetected) Coronavirus 229E (PCR) (NotDetected) SARS-CoV-2 (PCR) (NotDetected) Coronavirus NL63 (PCR) (NotDetected) Hepatitis C Ab (EIA) (NON-REACTIVE) Human Metapneumovir PCR (NotDetected) Influenza Type A (PCR) (NotDetected) Influenza Type B (PCR) (NotDetected) M. pneumoniae (PCR) (NotDetected) Parainfluenza 1 (PCR) (NotDetected) Parainfluenza 2 (PCR) (NotDetected) Parainfluenza 3 (PCR) (NotDetected) Parainfluenza 4 (PCR) (NotDetected) RSV (PCR) (NotDetected) Entero/Rhino (PCR) (NotDetected) Lung Tumor Pnl Analysis FISH Oncology MET Exon 14 Skipping IHC Stain and Interp 02/06/24 02/06/24 02/06/24 Range/Units 20:32 16:21 11:43 WBC (4.8-10.8) K/ul RBC (4.70-6.10) M/uL Hgb (14.0-18.0) g/dl Hct (42.0-52.0) % MCV (80.0-100.0) fL MCH (25.0-34.0) pg MCHC (32.0-36.0) g/dL RDW Std Deviation (36.4-46.3) fL RDW Coeff of Chevy (11.5-14.5) % Plt Count (130-400) K/uL MPV (9.4-12.4) fL Immature Gran % (Auto) % Neut % (Auto) % Lymph % (Auto) % Sunflower % (Auto) % Eos % (Auto) % Baso % (Auto) % Neut # (Auto) (1.40-6.50) K/uL Lymph # (Auto) (1.20-3.40) K/uL Sunflower # (Auto) (0.11-0.59) K/uL Eos # (Auto) (0.00-0.50) K/uL Baso # (Auto) (0.00-0.20) K/uL Immature Gran # (Auto) (0.01-0.20) K/uL PT (9.0-12.0) Seconds INR (0.9-1.1) APTT (21-31) Seconds PTT Ratio VBG pH (7.36-7.41) VBG pCO2 (38-50) mmHg VBG pO2 mmHg VBG HCO3 mmol/L VBG O2 Saturation % VBG Base Excess mEq/L Sodium (136-145) mmol/L Potassium (3.5-5.1) mmol/L Chloride (98-107) mmol/L Carbon Dioxide (21-32) mmol/L Anion Gap (3-11) BUN (6-23) mg/dl Creatinine (0.6-1.4) mg/dl Est Cr Clr Drug Dosing ml/min Est GFR ( Amer) ml/min Est GFR (Non-Af Amer) ml/min BUN/Creatinine Ratio (10-20) Glucose (70-99(Fasting)) mg/dl POC Glucose 113 H 100 H 129 H (70-99) mg/dl Calcium (8.6-10.3) mg/dl Phosphorus (2.5-4.9) mg/dl Magnesium (1.7-2.4) mg/dl Total Bilirubin (0.2-1.0) mg/dl Direct Bilirubin (0-0.2) mg/dl AST (13-39) U/L ALT (7-52) U/L Alkaline Phosphatase (34-104) U/L Lactate Dehydrogenase (86-244) U/L Troponin I High Sens (0-20) pg/ml C-Reactive Protein (0-0.5) mg/dl B-Natriuretic Peptide (0-100) pg/ml Total Protein (6.0-8.3) gm/dl Albumin (3.4-5.0) gm/dl Globulin (2.5-4.0) gm/dl Albumin/Globulin Ratio (0.9-2) Tumor Marker AFP (<6.1) ng/mL Carcinoembryonic Ag (0-2.5) ng/ml CA 19-9 Antigen (<34) U/mL Prostate Specific Ag (0-4) ng/ml Procalcitonin (0-0.5) ng/ml TSH (0.300-4.500) uIu/ml Fluid Neutrophils % % Fluid Lymphocytes % % Fluid Meso/Macro/Sunflower % % Fluid Slide Review Fluid Comment Pleural Fluid Source Pleural Color Pleural Appearance Pleural pH (7.3-7.4) Pleural WBC (Auto) /uL Pleural RBC (Auto) /uL Pleural Total Protein gm/dl Pleural LDH U/L Pleural Glucose mg/dl Pleural Amylase U/L Nasal Screen MRSA (PCR) (Negative) Azul-TRK (IHC) Adenovirus (PCR) (NotDetected) B. pertussis DNA (PCR) (NotDetected) B.parapertussis DNA PCR (NotDetected) C. pneumoniae DNA (PCR) (NotDetected) Coronavirus OC43 (PCR) (NotDetected) Coronavirus HKU1 (PCR) (NotDetected) Coronavirus 229E (PCR) (NotDetected) SARS-CoV-2 (PCR) (NotDetected) Coronavirus NL63 (PCR) (NotDetected) Hepatitis C Ab (EIA) (NON-REACTIVE) Human Metapneumovir PCR (NotDetected) Influenza Type A (PCR) (NotDetected) Influenza Type B (PCR) (NotDetected) M. pneumoniae (PCR) (NotDetected) Parainfluenza 1 (PCR) (NotDetected) Parainfluenza 2 (PCR) (NotDetected) Parainfluenza 3 (PCR) (NotDetected) Parainfluenza 4 (PCR) (NotDetected) RSV (PCR) (NotDetected) Entero/Rhino (PCR) (NotDetected) Lung Tumor Pnl Analysis FISH Oncology MET Exon 14 Skipping IHC Stain and Interp 02/06/24 02/06/24 02/05/24 Range/Units 08:16 05:37 20:22 WBC (4.8-10.8) K/ul RBC (4.70-6.10) M/uL Hgb (14.0-18.0) g/dl Hct (42.0-52.0) % MCV (80.0-100.0) fL MCH (25.0-34.0) pg MCHC (32.0-36.0) g/dL RDW Std Deviation (36.4-46.3) fL RDW Coeff of Chevy (11.5-14.5) % Plt Count (130-400) K/uL MPV (9.4-12.4) fL Immature Gran % (Auto) % Neut % (Auto) % Lymph % (Auto) % Sunflower % (Auto) % Eos % (Auto) % Baso % (Auto) % Neut # (Auto) (1.40-6.50) K/uL Lymph # (Auto) (1.20-3.40) K/uL Sunflower # (Auto) (0.11-0.59) K/uL Eos # (Auto) (0.00-0.50) K/uL Baso # (Auto) (0.00-0.20) K/uL Immature Gran # (Auto) (0.01-0.20) K/uL PT 11.1 (9.0-12.0) Seconds INR 1.0 (0.9-1.1) APTT 27 (21-31) Seconds PTT Ratio 1.0 VBG pH (7.36-7.41) VBG pCO2 (38-50) mmHg VBG pO2 mmHg VBG HCO3 mmol/L VBG O2 Saturation % VBG Base Excess mEq/L Sodium (136-145) mmol/L Potassium (3.5-5.1) mmol/L Chloride (98-107) mmol/L Carbon Dioxide (21-32) mmol/L Anion Gap (3-11) BUN (6-23) mg/dl Creatinine (0.6-1.4) mg/dl Est Cr Clr Drug Dosing ml/min Est GFR ( Amer) ml/min Est GFR (Non-Af Amer) ml/min BUN/Creatinine Ratio (10-20) Glucose (70-99(Fasting)) mg/dl POC Glucose 119 H 110 H (70-99) mg/dl Calcium (8.6-10.3) mg/dl Phosphorus (2.5-4.9) mg/dl Magnesium 1.7 (1.7-2.4) mg/dl Total Bilirubin 0.3 (0.2-1.0) mg/dl Direct Bilirubin (0-0.2) mg/dl AST (13-39) U/L ALT (7-52) U/L Alkaline Phosphatase (34-104) U/L Lactate Dehydrogenase 566 H (86-244) U/L Troponin I High Sens (0-20) pg/ml C-Reactive Protein (0-0.5) mg/dl B-Natriuretic Peptide (0-100) pg/ml Total Protein 7.1 (6.0-8.3) gm/dl Albumin 3.7 (3.4-5.0) gm/dl Globulin (2.5-4.0) gm/dl Albumin/Globulin Ratio (0.9-2) Tumor Marker AFP (<6.1) ng/mL Carcinoembryonic Ag (0-2.5) ng/ml CA 19-9 Antigen (<34) U/mL Prostate Specific Ag (0-4) ng/ml Procalcitonin (0-0.5) ng/ml TSH (0.300-4.500) uIu/ml Fluid Neutrophils % % Fluid Lymphocytes % % Fluid Meso/Macro/Sunflower % % Fluid Slide Review Fluid Comment Pleural Fluid Source Pleural Color Pleural Appearance Pleural pH (7.3-7.4) Pleural WBC (Auto) /uL Pleural RBC (Auto) /uL Pleural Total Protein gm/dl Pleural LDH U/L Pleural Glucose mg/dl Pleural Amylase U/L Nasal Screen MRSA (PCR) (Negative) Azul-TRK (IHC) Adenovirus (PCR) (NotDetected) B. pertussis DNA (PCR) (NotDetected) B.parapertussis DNA PCR (NotDetected) C. pneumoniae DNA (PCR) (NotDetected) Coronavirus OC43 (PCR) (NotDetected) Coronavirus HKU1 (PCR) (NotDetected) Coronavirus 229E (PCR) (NotDetected) SARS-CoV-2 (PCR) (NotDetected) Coronavirus NL63 (PCR) (NotDetected) Hepatitis C Ab (EIA) (NON-REACTIVE) Human Metapneumovir PCR (NotDetected) Influenza Type A (PCR) (NotDetected) Influenza Type B (PCR) (NotDetected) M. pneumoniae (PCR) (NotDetected) Parainfluenza 1 (PCR) (NotDetected) Parainfluenza 2 (PCR) (NotDetected) Parainfluenza 3 (PCR) (NotDetected) Parainfluenza 4 (PCR) (NotDetected) RSV (PCR) (NotDetected) Entero/Rhino (PCR) (NotDetected) Lung Tumor Pnl Analysis FISH Oncology MET Exon 14 Skipping IHC Stain and Interp 02/05/24 02/05/24 02/05/24 Range/Units 16:33 12:08 07:59 WBC 12.64 H (4.8-10.8) K/ul RBC 4.29 L (4.70-6.10) M/uL Hgb 13.1 L (14.0-18.0) g/dl Hct 38.2 L (42.0-52.0) % MCV 89.0 (80.0-100.0) fL MCH 30.5 (25.0-34.0) pg MCHC 34.3 (32.0-36.0) g/dL RDW Std Deviation 43.7 (36.4-46.3) fL RDW Coeff of Chevy 13.4 (11.5-14.5) % Plt Count 357 (130-400) K/uL MPV 9.9 (9.4-12.4) fL Immature Gran % (Auto) 0.6 % Neut % (Auto) 75.1 % Lymph % (Auto) 10.5 % Sunflower % (Auto) 7.8 % Eos % (Auto) 5.4 % Baso % (Auto) 0.6 % Neut # (Auto) 9.51 H (1.40-6.50) K/uL Lymph # (Auto) 1.33 (1.20-3.40) K/uL Sunflower # (Auto) 0.98 H (0.11-0.59) K/uL Eos # (Auto) 0.68 H (0.00-0.50) K/uL Baso # (Auto) 0.07 (0.00-0.20) K/uL Immature Gran # (Auto) 0.07 (0.01-0.20) K/uL PT (9.0-12.0) Seconds INR (0.9-1.1) APTT (21-31) Seconds PTT Ratio VBG pH (7.36-7.41) VBG pCO2 (38-50) mmHg VBG pO2 mmHg VBG HCO3 mmol/L VBG O2 Saturation % VBG Base Excess mEq/L Sodium 137 (136-145) mmol/L Potassium 4.6 D (3.5-5.1) mmol/L Chloride 103 (98-107) mmol/L Carbon Dioxide 27 (21-32) mmol/L Anion Gap 7 (3-11) BUN 15 (6-23) mg/dl Creatinine 0.97 (0.6-1.4) mg/dl Est Cr Clr Drug Dosing 67.8 ml/min Est GFR ( Amer) 89.4 ml/min Est GFR (Non-Af Amer) 77.1 ml/min BUN/Creatinine Ratio 15.5 (10-20) Glucose 108 H (70-99(Fasting)) mg/dl POC Glucose 108 H 126 H (70-99) mg/dl Calcium 9.4 (8.6-10.3) mg/dl Phosphorus (2.5-4.9) mg/dl Magnesium 1.6 L (1.7-2.4) mg/dl Total Bilirubin 0.4 (0.2-1.0) mg/dl Direct Bilirubin (0-0.2) mg/dl AST 24 (13-39) U/L ALT 23 (7-52) U/L Alkaline Phosphatase 296 H (34-104) U/L Lactate Dehydrogenase (86-244) U/L Troponin I High Sens (0-20) pg/ml C-Reactive Protein (0-0.5) mg/dl B-Natriuretic Peptide (0-100) pg/ml Total Protein 6.9 (6.0-8.3) gm/dl Albumin 3.7 (3.4-5.0) gm/dl Globulin 3.2 (2.5-4.0) gm/dl Albumin/Globulin Ratio 1.2 (0.9-2) Tumor Marker AFP (<6.1) ng/mL Carcinoembryonic Ag (0-2.5) ng/ml CA 19-9 Antigen (<34) U/mL Prostate Specific Ag (0-4) ng/ml Procalcitonin (0-0.5) ng/ml TSH (0.300-4.500) uIu/ml Fluid Neutrophils % % Fluid Lymphocytes % % Fluid Meso/Macro/Sunflower % % Fluid Slide Review Fluid Comment Pleural Fluid Source Pleural Color Pleural Appearance Pleural pH (7.3-7.4) Pleural WBC (Auto) /uL Pleural RBC (Auto) /uL Pleural Total Protein gm/dl Pleural LDH U/L Pleural Glucose mg/dl Pleural Amylase U/L Nasal Screen MRSA (PCR) (Negative) Azul-TRK (IHC) Adenovirus (PCR) (NotDetected) B. pertussis DNA (PCR) (NotDetected) B.parapertussis DNA PCR (NotDetected) C. pneumoniae DNA (PCR) (NotDetected) Coronavirus OC43 (PCR) (NotDetected) Coronavirus HKU1 (PCR) (NotDetected) Coronavirus 229E (PCR) (NotDetected) SARS-CoV-2 (PCR) (NotDetected) Coronavirus NL63 (PCR) (NotDetected) Hepatitis C Ab (EIA) (NON-REACTIVE) Human Metapneumovir PCR (NotDetected) Influenza Type A (PCR) (NotDetected) Influenza Type B (PCR) (NotDetected) M. pneumoniae (PCR) (NotDetected) Parainfluenza 1 (PCR) (NotDetected) Parainfluenza 2 (PCR) (NotDetected) Parainfluenza 3 (PCR) (NotDetected) Parainfluenza 4 (PCR) (NotDetected) RSV (PCR) (NotDetected) Entero/Rhino (PCR) (NotDetected) Lung Tumor Pnl Analysis FISH Oncology MET Exon 14 Skipping IHC Stain and Interp 02/05/24 02/04/24 02/04/24 Range/Units 07:56 Unknown 20:35 WBC (4.8-10.8) K/ul RBC (4.70-6.10) M/uL Hgb (14.0-18.0) g/dl Hct (42.0-52.0) % MCV (80.0-100.0) fL MCH (25.0-34.0) pg MCHC (32.0-36.0) g/dL RDW Std Deviation (36.4-46.3) fL RDW Coeff of Chevy (11.5-14.5) % Plt Count (130-400) K/uL MPV (9.4-12.4) fL Immature Gran % (Auto) % Neut % (Auto) % Lymph % (Auto) % Sunflower % (Auto) % Eos % (Auto) % Baso % (Auto) % Neut # (Auto) (1.40-6.50) K/uL Lymph # (Auto) (1.20-3.40) K/uL Sunflower # (Auto) (0.11-0.59) K/uL Eos # (Auto) (0.00-0.50) K/uL Baso # (Auto) (0.00-0.20) K/uL Immature Gran # (Auto) (0.01-0.20) K/uL PT (9.0-12.0) Seconds INR (0.9-1.1) APTT (21-31) Seconds PTT Ratio VBG pH (7.36-7.41) VBG pCO2 (38-50) mmHg VBG pO2 mmHg VBG HCO3 mmol/L VBG O2 Saturation % VBG Base Excess mEq/L Sodium (136-145) mmol/L Potassium (3.5-5.1) mmol/L Chloride (98-107) mmol/L Carbon Dioxide (21-32) mmol/L Anion Gap (3-11) BUN (6-23) mg/dl Creatinine (0.6-1.4) mg/dl Est Cr Clr Drug Dosing ml/min Est GFR ( Amer) ml/min Est GFR (Non-Af Amer) ml/min BUN/Creatinine Ratio (10-20) Glucose (70-99(Fasting)) mg/dl POC Glucose 110 H 120 H (70-99) mg/dl Calcium (8.6-10.3) mg/dl Phosphorus (2.5-4.9) mg/dl Magnesium (1.7-2.4) mg/dl Total Bilirubin (0.2-1.0) mg/dl Direct Bilirubin (0-0.2) mg/dl AST (13-39) U/L ALT (7-52) U/L Alkaline Phosphatase (34-104) U/L Lactate Dehydrogenase (86-244) U/L Troponin I High Sens (0-20) pg/ml C-Reactive Protein (0-0.5) mg/dl B-Natriuretic Peptide (0-100) pg/ml Total Protein (6.0-8.3) gm/dl Albumin (3.4-5.0) gm/dl Globulin (2.5-4.0) gm/dl Albumin/Globulin Ratio (0.9-2) Tumor Marker AFP (<6.1) ng/mL Carcinoembryonic Ag (0-2.5) ng/ml CA 19-9 Antigen (<34) U/mL Prostate Specific Ag (0-4) ng/ml Procalcitonin 0.11 (0-0.5) ng/ml TSH (0.300-4.500) uIu/ml Fluid Neutrophils % % Fluid Lymphocytes % % Fluid Meso/Macro/Sunflower % % Fluid Slide Review Fluid Comment Pleural Fluid Source Pleural Color Pleural Appearance Pleural pH (7.3-7.4) Pleural WBC (Auto) /uL Pleural RBC (Auto) /uL Pleural Total Protein gm/dl Pleural LDH U/L Pleural Glucose mg/dl Pleural Amylase U/L Nasal Screen MRSA (PCR) (Negative) Azul-TRK (IHC) Adenovirus (PCR) (NotDetected) B. pertussis DNA (PCR) (NotDetected) B.parapertussis DNA PCR (NotDetected) C. pneumoniae DNA (PCR) (NotDetected) Coronavirus OC43 (PCR) (NotDetected) Coronavirus HKU1 (PCR) (NotDetected) Coronavirus 229E (PCR) (NotDetected) SARS-CoV-2 (PCR) (NotDetected) Coronavirus NL63 (PCR) (NotDetected) Hepatitis C Ab (EIA) (NON-REACTIVE) Human Metapneumovir PCR (NotDetected) Influenza Type A (PCR) (NotDetected) Influenza Type B (PCR) (NotDetected) M. pneumoniae (PCR) (NotDetected) Parainfluenza 1 (PCR) (NotDetected) Parainfluenza 2 (PCR) (NotDetected) Parainfluenza 3 (PCR) (NotDetected) Parainfluenza 4 (PCR) (NotDetected) RSV (PCR) (NotDetected) Entero/Rhino (PCR) (NotDetected) Lung Tumor Pnl Analysis FISH Oncology MET Exon 14 Skipping IHC Stain and Interp 02/04/24 02/04/24 02/04/24 Range/Units 17:01 12:02 10:12 WBC (4.8-10.8) K/ul RBC (4.70-6.10) M/uL Hgb (14.0-18.0) g/dl Hct (42.0-52.0) % MCV (80.0-100.0) fL MCH (25.0-34.0) pg MCHC (32.0-36.0) g/dL RDW Std Deviation (36.4-46.3) fL RDW Coeff of Chevy (11.5-14.5) % Plt Count (130-400) K/uL MPV (9.4-12.4) fL Immature Gran % (Auto) % Neut % (Auto) % Lymph % (Auto) % Sunflower % (Auto) % Eos % (Auto) % Baso % (Auto) % Neut # (Auto) (1.40-6.50) K/uL Lymph # (Auto) (1.20-3.40) K/uL Sunflower # (Auto) (0.11-0.59) K/uL Eos # (Auto) (0.00-0.50) K/uL Baso # (Auto) (0.00-0.20) K/uL Immature Gran # (Auto) (0.01-0.20) K/uL PT (9.0-12.0) Seconds INR (0.9-1.1) APTT (21-31) Seconds PTT Ratio VBG pH (7.36-7.41) VBG pCO2 (38-50) mmHg VBG pO2 mmHg VBG HCO3 mmol/L VBG O2 Saturation % VBG Base Excess mEq/L Sodium (136-145) mmol/L Potassium (3.5-5.1) mmol/L Chloride (98-107) mmol/L Carbon Dioxide (21-32) mmol/L Anion Gap (3-11) BUN (6-23) mg/dl Creatinine (0.6-1.4) mg/dl Est Cr Clr Drug Dosing ml/min Est GFR ( Amer) ml/min Est GFR (Non-Af Amer) ml/min BUN/Creatinine Ratio (10-20) Glucose (70-99(Fasting)) mg/dl POC Glucose 74 157 H (70-99) mg/dl Calcium (8.6-10.3) mg/dl Phosphorus (2.5-4.9) mg/dl Magnesium (1.7-2.4) mg/dl Total Bilirubin (0.2-1.0) mg/dl Direct Bilirubin (0-0.2) mg/dl AST (13-39) U/L ALT (7-52) U/L Alkaline Phosphatase (34-104) U/L Lactate Dehydrogenase (86-244) U/L Troponin I High Sens (0-20) pg/ml C-Reactive Protein (0-0.5) mg/dl B-Natriuretic Peptide (0-100) pg/ml Total Protein (6.0-8.3) gm/dl Albumin (3.4-5.0) gm/dl Globulin (2.5-4.0) gm/dl Albumin/Globulin Ratio (0.9-2) Tumor Marker AFP 2.9 (<6.1) ng/mL Carcinoembryonic Ag > 850.0 H (0-2.5) ng/ml CA 19-9 Antigen 150 H (<34) U/mL Prostate Specific Ag 2.031 (0-4) ng/ml Procalcitonin (0-0.5) ng/ml TSH (0.300-4.500) uIu/ml Fluid Neutrophils % % Fluid Lymphocytes % % Fluid Meso/Macro/Sunflower % % Fluid Slide Review Fluid Comment Pleural Fluid Source Pleural Color Pleural Appearance Pleural pH (7.3-7.4) Pleural WBC (Auto) /uL Pleural RBC (Auto) /uL Pleural Total Protein gm/dl Pleural LDH U/L Pleural Glucose mg/dl Pleural Amylase U/L Nasal Screen MRSA (PCR) (Negative) Azul-TRK (IHC) Adenovirus (PCR) (NotDetected) B. pertussis DNA (PCR) (NotDetected) B.parapertussis DNA PCR (NotDetected) C. pneumoniae DNA (PCR) (NotDetected) Coronavirus OC43 (PCR) (NotDetected) Coronavirus HKU1 (PCR) (NotDetected) Coronavirus 229E (PCR) (NotDetected) SARS-CoV-2 (PCR) (NotDetected) Coronavirus NL63 (PCR) (NotDetected) Hepatitis C Ab (EIA) (NON-REACTIVE) Human Metapneumovir PCR (NotDetected) Influenza Type A (PCR) (NotDetected) Influenza Type B (PCR) (NotDetected) M. pneumoniae (PCR) (NotDetected) Parainfluenza 1 (PCR) (NotDetected) Parainfluenza 2 (PCR) (NotDetected) Parainfluenza 3 (PCR) (NotDetected) Parainfluenza 4 (PCR) (NotDetected) RSV (PCR) (NotDetected) Entero/Rhino (PCR) (NotDetected) Lung Tumor Pnl Analysis FISH Oncology MET Exon 14 Skipping IHC Stain and Interp 02/04/24 02/04/24 02/04/24 Range/Units 07:38 06:05 05:37 WBC 11.80 H (4.8-10.8) K/ul RBC 4.07 L (4.70-6.10) M/uL Hgb 12.3 L (14.0-18.0) g/dl Hct 36.0 L (42.0-52.0) % MCV 88.5 (80.0-100.0) fL MCH 30.2 (25.0-34.0) pg MCHC 34.2 (32.0-36.0) g/dL RDW Std Deviation 42.6 (36.4-46.3) fL RDW Coeff of Chevy 13.2 (11.5-14.5) % Plt Count 340 (130-400) K/uL MPV 10.2 (9.4-12.4) fL Immature Gran % (Auto) % Neut % (Auto) % Lymph % (Auto) % Sunflower % (Auto) % Eos % (Auto) % Baso % (Auto) % Neut # (Auto) (1.40-6.50) K/uL Lymph # (Auto) (1.20-3.40) K/uL Sunflower # (Auto) (0.11-0.59) K/uL Eos # (Auto) (0.00-0.50) K/uL Baso # (Auto) (0.00-0.20) K/uL Immature Gran # (Auto) (0.01-0.20) K/uL PT (9.0-12.0) Seconds INR (0.9-1.1) APTT (21-31) Seconds PTT Ratio VBG pH (7.36-7.41) VBG pCO2 (38-50) mmHg VBG pO2 mmHg VBG HCO3 mmol/L VBG O2 Saturation % VBG Base Excess mEq/L Sodium 138 (136-145) mmol/L Potassium 3.3 L (3.5-5.1) mmol/L Chloride 102 (98-107) mmol/L Carbon Dioxide 27 (21-32) mmol/L Anion Gap 9 (3-11) BUN 16 (6-23) mg/dl Creatinine 0.90 (0.6-1.4) mg/dl Est Cr Clr Drug Dosing 73.1 ml/min Est GFR ( Amer) 97.9 ml/min Est GFR (Non-Af Amer) 84.4 ml/min BUN/Creatinine Ratio 17.8 (10-20) Glucose 67 L (70-99(Fasting)) mg/dl POC Glucose 73 (70-99) mg/dl Calcium 8.5 L (8.6-10.3) mg/dl Phosphorus (2.5-4.9) mg/dl Magnesium (1.7-2.4) mg/dl Total Bilirubin 0.4 (0.2-1.0) mg/dl Direct Bilirubin 0.1 (0-0.2) mg/dl AST 21 (13-39) U/L ALT 20 (7-52) U/L Alkaline Phosphatase 268 H (34-104) U/L Lactate Dehydrogenase (86-244) U/L Troponin I High Sens (0-20) pg/ml C-Reactive Protein (0-0.5) mg/dl B-Natriuretic Peptide 8 (0-100) pg/ml Total Protein 6.4 (6.0-8.3) gm/dl Albumin 3.4 (3.4-5.0) gm/dl Globulin (2.5-4.0) gm/dl Albumin/Globulin Ratio (0.9-2) Tumor Marker AFP (<6.1) ng/mL Carcinoembryonic Ag (0-2.5) ng/ml CA 19-9 Antigen (<34) U/mL Prostate Specific Ag (0-4) ng/ml Procalcitonin (0-0.5) ng/ml TSH 2.321 (0.300-4.500) uIu/ml Fluid Neutrophils % % Fluid Lymphocytes % % Fluid Meso/Macro/Sunflower % % Fluid Slide Review Fluid Comment Pleural Fluid Source Pleural Color Pleural Appearance Pleural pH (7.3-7.4) Pleural WBC (Auto) /uL Pleural RBC (Auto) /uL Pleural Total Protein gm/dl Pleural LDH U/L Pleural Glucose mg/dl Pleural Amylase U/L Nasal Screen MRSA (PCR) Negative (Negative) Azul-TRK (IHC) Adenovirus (PCR) (NotDetected) B. pertussis DNA (PCR) (NotDetected) B.parapertussis DNA PCR (NotDetected) C. pneumoniae DNA (PCR) (NotDetected) Coronavirus OC43 (PCR) (NotDetected) Coronavirus HKU1 (PCR) (NotDetected) Coronavirus 229E (PCR) (NotDetected) SARS-CoV-2 (PCR) (NotDetected) Coronavirus NL63 (PCR) (NotDetected) Hepatitis C Ab (EIA) NON-REACTIVE (NON-REACTIVE) Human Metapneumovir PCR (NotDetected) Influenza Type A (PCR) (NotDetected) Influenza Type B (PCR) (NotDetected) M. pneumoniae (PCR) (NotDetected) Parainfluenza 1 (PCR) (NotDetected) Parainfluenza 2 (PCR) (NotDetected) Parainfluenza 3 (PCR) (NotDetected) Parainfluenza 4 (PCR) (NotDetected) RSV (PCR) (NotDetected) Entero/Rhino (PCR) (NotDetected) Lung Tumor Pnl Analysis FISH Oncology MET Exon 14 Skipping IHC Stain and Interp 02/03/24 02/03/24 02/03/24 Range/Units Unknown 22:50 22:00 WBC 13.53 H (4.8-10.8) K/ul RBC 4.43 L (4.70-6.10) M/uL Hgb 13.4 L (14.0-18.0) g/dl Hct 39.1 L (42.0-52.0) % MCV 88.3 (80.0-100.0) fL MCH 30.2 (25.0-34.0) pg MCHC 34.3 (32.0-36.0) g/dL RDW Std Deviation 43.2 (36.4-46.3) fL RDW Coeff of Chevy 13.3 (11.5-14.5) % Plt Count 360 (130-400) K/uL MPV 10.1 (9.4-12.4) fL Immature Gran % (Auto) 0.4 % Neut % (Auto) 71.6 % Lymph % (Auto) 13.8 % Sunflower % (Auto) 7.5 % Eos % (Auto) 6.3 % Baso % (Auto) 0.4 % Neut # (Auto) 9.68 H (1.40-6.50) K/uL Lymph # (Auto) 1.87 (1.20-3.40) K/uL Sunflower # (Auto) 1.02 H (0.11-0.59) K/uL Eos # (Auto) 0.85 H (0.00-0.50) K/uL Baso # (Auto) 0.06 (0.00-0.20) K/uL Immature Gran # (Auto) 0.05 (0.01-0.20) K/uL PT (9.0-12.0) Seconds INR (0.9-1.1) APTT (21-31) Seconds PTT Ratio VBG pH 7.44 H (7.36-7.41) VBG pCO2 43 (38-50) mmHg VBG pO2 50 mmHg VBG HCO3 29 mmol/L VBG O2 Saturation 83.2 % VBG Base Excess 4.4 mEq/L Sodium 138 (136-145) mmol/L Potassium 3.5 (3.5-5.1) mmol/L Chloride 102 (98-107) mmol/L Carbon Dioxide 26 (21-32) mmol/L Anion Gap 10 (3-11) BUN 18 (6-23) mg/dl Creatinine 0.97 (0.6-1.4) mg/dl Est Cr Clr Drug Dosing 67.8 ml/min Est GFR ( Amer) 89.4 ml/min Est GFR (Non-Af Amer) 77.1 ml/min BUN/Creatinine Ratio 18.6 (10-20) Glucose 106 H (70-99(Fasting)) mg/dl POC Glucose (70-99) mg/dl Calcium 8.8 (8.6-10.3) mg/dl Phosphorus 2.8 (2.5-4.9) mg/dl Magnesium 0.8 L* (1.7-2.4) mg/dl Total Bilirubin 0.4 (0.2-1.0) mg/dl Direct Bilirubin (0-0.2) mg/dl AST 24 (13-39) U/L ALT 22 (7-52) U/L Alkaline Phosphatase 321 H (34-104) U/L Lactate Dehydrogenase (86-244) U/L Troponin I High Sens 7.4 (0-20) pg/ml C-Reactive Protein (0-0.5) mg/dl B-Natriuretic Peptide (0-100) pg/ml Total Protein 6.8 (6.0-8.3) gm/dl Albumin 3.7 (3.4-5.0) gm/dl Globulin 3.1 (2.5-4.0) gm/dl Albumin/Globulin Ratio 1.2 (0.9-2) Tumor Marker AFP (<6.1) ng/mL Carcinoembryonic Ag (0-2.5) ng/ml CA 19-9 Antigen (<34) U/mL Prostate Specific Ag (0-4) ng/ml Procalcitonin (0-0.5) ng/ml TSH (0.300-4.500) uIu/ml Fluid Neutrophils % % Fluid Lymphocytes % % Fluid Meso/Macro/Sunflower % % Fluid Slide Review Fluid Comment Pleural Fluid Source Pleural Color Pleural Appearance Pleural pH (7.3-7.4) Pleural WBC (Auto) /uL Pleural RBC (Auto) /uL Pleural Total Protein gm/dl Pleural LDH U/L Pleural Glucose mg/dl Pleural Amylase U/L Nasal Screen MRSA (PCR) (Negative) Azul-TRK (IHC) Pending Adenovirus (PCR) (NotDetected) B. pertussis DNA (PCR) (NotDetected) B.parapertussis DNA PCR (NotDetected) C. pneumoniae DNA (PCR) (NotDetected) Coronavirus OC43 (PCR) (NotDetected) Coronavirus HKU1 (PCR) (NotDetected) Coronavirus 229E (PCR) (NotDetected) SARS-CoV-2 (PCR) (NotDetected) Coronavirus NL63 (PCR) (NotDetected) Hepatitis C Ab (EIA) (NON-REACTIVE) Human Metapneumovir PCR (NotDetected) Influenza Type A (PCR) (NotDetected) Influenza Type B (PCR) (NotDetected) M. pneumoniae (PCR) (NotDetected) Parainfluenza 1 (PCR) (NotDetected) Parainfluenza 2 (PCR) (NotDetected) Parainfluenza 3 (PCR) (NotDetected) Parainfluenza 4 (PCR) (NotDetected) RSV (PCR) (NotDetected) Entero/Rhino (PCR) (NotDetected) Lung Tumor Pnl Analysis Pending FISH Oncology Pending MET Exon 14 Skipping Pending IHC Stain and Interp Pending 02/03/24 Range/Units 21:30 WBC (4.8-10.8) K/ul RBC (4.70-6.10) M/uL Hgb (14.0-18.0) g/dl Hct (42.0-52.0) % MCV (80.0-100.0) fL MCH (25.0-34.0) pg MCHC (32.0-36.0) g/dL RDW Std Deviation (36.4-46.3) fL RDW Coeff of Cehvy (11.5-14.5) % Plt Count (130-400) K/uL MPV (9.4-12.4) fL Immature Gran % (Auto) % Neut % (Auto) % Lymph % (Auto) % Sunflower % (Auto) % Eos % (Auto) % Baso % (Auto) % Neut # (Auto) (1.40-6.50) K/uL Lymph # (Auto) (1.20-3.40) K/uL Sunflower # (Auto) (0.11-0.59) K/uL Eos # (Auto) (0.00-0.50) K/uL Baso # (Auto) (0.00-0.20) K/uL Immature Gran # (Auto) (0.01-0.20) K/uL PT (9.0-12.0) Seconds INR (0.9-1.1) APTT (21-31) Seconds PTT Ratio VBG pH (7.36-7.41) VBG pCO2 (38-50) mmHg VBG pO2 mmHg VBG HCO3 mmol/L VBG O2 Saturation % VBG Base Excess mEq/L Sodium (136-145) mmol/L Potassium (3.5-5.1) mmol/L Chloride (98-107) mmol/L Carbon Dioxide (21-32) mmol/L Anion Gap (3-11) BUN (6-23) mg/dl Creatinine (0.6-1.4) mg/dl Est Cr Clr Drug Dosing ml/min Est GFR ( Amer) ml/min Est GFR (Non-Af Amer) ml/min BUN/Creatinine Ratio (10-20) Glucose (70-99(Fasting)) mg/dl POC Glucose (70-99) mg/dl Calcium (8.6-10.3) mg/dl Phosphorus (2.5-4.9) mg/dl Magnesium (1.7-2.4) mg/dl Total Bilirubin (0.2-1.0) mg/dl Direct Bilirubin (0-0.2) mg/dl AST (13-39) U/L ALT (7-52) U/L Alkaline Phosphatase (34-104) U/L Lactate Dehydrogenase (86-244) U/L Troponin I High Sens (0-20) pg/ml C-Reactive Protein (0-0.5) mg/dl B-Natriuretic Peptide (0-100) pg/ml Total Protein (6.0-8.3) gm/dl Albumin (3.4-5.0) gm/dl Globulin (2.5-4.0) gm/dl Albumin/Globulin Ratio (0.9-2) Tumor Marker AFP (<6.1) ng/mL Carcinoembryonic Ag (0-2.5) ng/ml CA 19-9 Antigen (<34) U/mL Prostate Specific Ag (0-4) ng/ml Procalcitonin (0-0.5) ng/ml TSH (0.300-4.500) uIu/ml Fluid Neutrophils % % Fluid Lymphocytes % % Fluid Meso/Macro/Sunflower % % Fluid Slide Review Fluid Comment Pleural Fluid Source Pleural Color Pleural Appearance Pleural pH (7.3-7.4) Pleural WBC (Auto) /uL Pleural RBC (Auto) /uL Pleural Total Protein gm/dl Pleural LDH U/L Pleural Glucose mg/dl Pleural Amylase U/L Nasal Screen MRSA (PCR) (Negative) Azul-TRK (IHC) Adenovirus (PCR) Not Detected (NotDetected) B. pertussis DNA (PCR) Not Detected (NotDetected) B.parapertussis DNA PCR Not Detected (NotDetected) C. pneumoniae DNA (PCR) Not Detected (NotDetected) Coronavirus OC43 (PCR) Not Detected (NotDetected) Coronavirus HKU1 (PCR) Not Detected (NotDetected) Coronavirus 229E (PCR) Not Detected (NotDetected) SARS-CoV-2 (PCR) Not Detected (NotDetected) Coronavirus NL63 (PCR) Not Detected (NotDetected) Hepatitis C Ab (EIA) (NON-REACTIVE) Human Metapneumovir PCR Not Detected (NotDetected) Influenza Type A (PCR) Not Detected (NotDetected) Influenza Type B (PCR) Not Detected (NotDetected) M. pneumoniae (PCR) Not Detected (NotDetected) Parainfluenza 1 (PCR) Not Detected (NotDetected) Parainfluenza 2 (PCR) Not Detected (NotDetected) Parainfluenza 3 (PCR) Not Detected (NotDetected) Parainfluenza 4 (PCR) Not Detected (NotDetected) RSV (PCR) Not Detected (NotDetected) Entero/Rhino (PCR) Not Detected (NotDetected) Lung Tumor Pnl Analysis FISH Oncology MET Exon 14 Skipping IHC Stain and Interp Diagnostic Findings Chest X-Ray 02/03/24 21:35 XR chest 1V portable CLINICAL HISTORY: Dyspnea TECHNIQUE: Single frontal radiograph of the chest was obtained. Comparison: Comparison is made to CT chest 12/07/2023 FINDINGS: No lines and tubes are seen. The cardiomediastinal silhouette is normal. Emphysema and interstitial thickening are seen. Left lower lung airspace opacity seen. No evidence of pleural effusion or pneumothorax. IMPRESSION: 1. Left lower lung airspace opacity. This may represent atelectasis, pneumonia, and/or aspiration. 2. Emphysema and interstitial thickening. ACT 112: Negative or not required by law. Electronically signed by: Ad Travis M.D. 02/03/2024 10:[address] 02/03/24 23:38 Exam(s): CT CHEST Without Contrast EXAM: CT Chest Without Intravenous Contrast CLINICAL HISTORY: Pneumonia. TECHNIQUE: Axial computed tomography images of the chest without intravenous contrast. CTDI is 27.25 mGy and DLP is 532.98 mGy-cm. Automated exposure control was utilized for the study. A dose lowering technique was utilized adhering to the principles of ALARA. COMPARISON: CT chest 12/07/2023 FINDINGS: Lungs: Diffuse airspace opacities throughout the left lung and to a lesser degree right upper lobe are concerning for multifocal pneumonia and/or aspiration. Marked emphysema. Pleural space: Small left pleural effusion. No pneumothorax. Heart: Coronary artery calcifications are present. No cardiomegaly. No significant pericardial effusion. Bones/joints: Diffuse osseous metastases are present. Chronic right rib fractures. No dislocation. No evidence of acute fracture. Soft tissues: Unremarkable. Vasculature: Minimal atherosclerosis. Lymph nodes: Unremarkable. No enlarged lymph nodes. Liver: Hepatic metastases are noted. IMPRESSION: 1. Diffuse airspace opacities throughout the left lung and to a lesser degree right upper lobe are concerning for multifocal pneumonia and/or aspiration. 2. Small left pleural effusion. 3. Marked emphysema. 4. Diffuse osseous and hepatic metastases have worsened since the previous examination. Electronically signed by: Sarah Laguerre MD 02/04/24 00:55 AM Abdomen/Pelvis CT 02/04/24 06:06 CT SCAN OF THE ABDOMEN AND PELVIS WITH IV CONTRAST CLINICAL HISTORY: Metastatic survey. Hepatic and osseous lesions. COMPARISON STUDY: Chest CT performed the same day 02/04/2024. TECHNIQUE: Following the IV administration of 94 cc of Optiray 320, CT scan of the abdomen and pelvis is performed from the lung bases to the proximal femora. Images are reviewed in the axial, sagittal, and coronal planes. IV contrast was administered without complication. Oral contrast was utilized. A dose lowering technique was utilized adhering to the principles of ALARA. CT DOSE: 1002.41 mGy.cm FINDINGS: Lung bases: The heart is normal in size and without pericardial effusion. The coronary arteries are densely calcified. Mediastinal and hilar lymphadenopathy is partially visualized. A right hilar node measures 2.0 x 1.6 cm. A subcarinal node measures 3.0 x 2.2 cm. Advanced emphysematous change is observed. There is a small to moderate left pleural effusion. Airspace consolidation is seen throughout the left lower lung. Fibrotic change is noted at the right lung base. A 1.5 cm irregular opacity in the right lower lobe as seen on image #8. Liver: The contrast-enhanced liver is normal in size, contour, and attenuation. There is no intrahepatic biliary ductal dilatation. The hepatic veins and portal veins are patent. There is evidence of multifocal hepatic metastatic disease, with approximately 10 lesions identified. A product support representative left lobe lesion on image #103 measures up to 4.1 cm. A 3.5 cm right lobe cyst with a mural nodule or debris is seen on image #45. Gallbladder: Surgically absent noting clips in the gallbladder fossa. Spleen: Normal in size and attenuation. Pancreas: Unremarkable. Adrenal glands: Unremarkable. Kidneys: The contrast enhanced kidneys are normal in size and without hydronephrosis. The kidneys enhance symmetrically. A 3.3 cm cystic lesion is seen in the lower pole the right kidney. This appears to contain a dependent rim of soft tissue versus internal debris as seen on image #179. A left renal cyst measures 3.1 cm. Additional subcentimeter cortical hypodensities also likely represent cysts but are too small for definitive characterization. Abdominal vasculature: There is a chronic calcification and ectasia of the abdominal aorta. An infrarenal abdominal aneurysm measures up to 3.0 cm. Bowel: There is rectosigmoid fecal retention and moderate constipation. No bowel obstruction is seen. There is moderate to advanced diverticulosis of left colon without CT evidence of acute diverticulitis. The appendix is well-visualized and normal. Peritoneum: There is no intraperitoneal free air or abdominal ascites. There is a fat-containing umbilical hernia. There is infiltration mild nodularity of the right upper quadrant mesentery seen on image #118. Lymphadenopathy: None. Pelvic viscera: The prostate gland is enlarged and heterogeneous. The bladder is distended, the wall is mildly thickened/trabeculated indicating chronic outlet obstruction. Skeletal structures: The skeletal structures are osteopenic. There is mild to moderate lumbosacral spondylosis. Chronic deformity and postoperative change is seen in the left proximal femur. There is evidence of multifocal osteoblastic metastatic disease. Extensive bony lesions are seen throughout the imaged thoracolumbar spine, within the sacrum and bony pelvis, the right proximal femur comment the inferior right scapula, and numerous bilateral ribs. There are chronic right-sided rib fractures. There are mild pathologic compression deformities of T10 and L5. IMPRESSION: 1. Cardiomegaly and advanced emphysema. 2. There is a small left pleural effusion with airspace consolidation throughout the left lower lung. The appearance favors pneumonia/aspiration pneumonitis. Clinical correlation will be required and radiographic follow-up to resolution is recommended. 3. There is nonspecific mediastinal and hilar lymphadenopathy. This could be reactive versus neoplastic. 4. A 1.5 cm right lower lobe opacity is nonspecific and could be infectious/inflammatory versus neoplastic. Attention at follow-up is recommended. 5. There is evidence of multifocal hepatic metastatic disease. 6. There is evidence of extensive/diffuse osteoblastic metastatic disease. 7. A primary neoplasm is not clearly delineated. Prostate cancer is a differential consideration given the degree of osteoblastic metastatic disease in a male patient. Correlate with serum PSA levels. Given the degree of emphysema a lung cancer is also a consideration. Tissue sampling will likely be required for definitive characterization. 8. There is a 3.3 cm cystic lesion in the lower pole of the right kidney. This may contain a rind of abnormal soft tissue versus internal debris. Correlation with a renal ultrasound is recommended for further evaluation. 9. There is a 3.0 cm infrarenal abdominal aortic aneurysm. 10. Diverticulosis of the left colon without CT evidence of acute diverticulitis. 11. Pathologic fractures as above. The pathologic compression fracture of L5 appears acute to subacute. 12. There is mild infiltration/nodularity in the right upper quadrant mesentery. This is nonspecific and may be inflammatory. Peritoneal disease is not excluded. Attention at follow-up is recommended. 13. Additional findings as above. ACT 112: Negative or not required by law. Electronically signed by: Ronnie Gómez M.D. 02/04/2024 8:01 PM Chest X-Ray 02/06/24 15:20 XR chest 1V portable CLINICAL HISTORY: left thoracentesis TECHNIQUE: Single frontal radiograph of the chest was obtained. Comparison: Comparison is made to chest radiograph 02/03/[address] chest 02/04/2024 FINDINGS: No lines and tubes are seen. The cardiomediastinal silhouette is normal. Left lower lung airspace opacity is seen. Emphysema and interstitial thickening are unchanged. There is likely a left pleural effusion. IMPRESSION: Essentially stable airspace opacity and pleural effusion as above. ACT 112: Negative or not required by law. Electronically signed by: Ad Travis M.D. 02/06/2024 3:54 PM Chest X-Ray 02/07/24 07:29 XR chest 1V portable HISTORY: 73 years-old Male f/u acute shortness of breath COMPARISON: Chest radiograph 02/06/2024, chest CT 02/04/2024 TECHNIQUE: AP view of the chest FINDINGS: Cardiomediastinal and hilar silhouettes are unchanged. Pulmonary vascular congestion. Severe emphysema with chronic interstitial coarsening/fibrotic ch anges. Moderate left pleural effusion with extensive left lung airspace opacities redemonstrated. No pneumothorax. Cholecystectomy. Barium noted within the colon. IMPRESSION: 1. Pulmonary vascular congestion. 2. Emphysema with chronic fibrotic changes. 3. Moderate left pleural effusion with extensive left lung airspace opacities redemonstrated. ACT 112: Negative or not required by law. The above report was generated using voice recognition software. It may contain grammatical, syntax or spelling errors. Electronically signed by: Sony Lundy M.D. 02/07/2024 8:35 AM Liver Biopsy Ultrasound 02/07/24 08:00 Ultrasound guided right lobe liver lesion core biopsy INDICATION: Right lobe liver lesion PROCEDURE: Procedure and risks were explained. Informed consent was obtained. A final timeout was completed. The abdomen was prepped and draped in sterile fashion. 1% lidocaine was utilized for skin anesthesia. Utilizing ultrasound guidance, a 17-gauge coaxial needle was advanced into the right lobe liver lesion. Ultrasound images were obtained. An 18-gauge core biopsy needle was advanced, and 3 1 cm cores were obtained and given to the p athologist for review. The coaxial needle was removed and Band-Aid applied. The patient tolerated the procedure well. Vital signs will be monitored on the floor. IMPRESSION: Right lobe liver lesion core biopsy as above. Performed, dictated, and signed by Prabhjot Blackburn PA-C; to be co-signed by Dr. Sony Lundy. Electronically signed by: Sony Lundy M.D. 02/07/2024 2:33 PM Chest X-Ray 02/09/24 07:00 XR chest 1V portable CLINICAL HISTORY: f/u TECHNIQUE: Single frontal radiograph of the chest was obtained. Comparison: Comparison is made to chest radiograph 02/07/2024 FINDINGS: No lines and tubes are seen. The cardiomediastinal silhouette is normal. Bilateral lower lung predominant airspace opacities are seen. Moderate left pleural effusion is seen. IMPRESSION: 1. Bilateral lower lung predominant airspace opacities which may represent atelectasis, pneumonia, and/or aspiration. 2. Moderate left pleural effusion. ACT 112: Negative or not required by law. Electronically signed by: Ad Travis M.D. 02/09/2024 8:21 AM PG Care Time/CCT Total # of Minutes Spent Total Time Spent with Patient: Total time spent is greater than 50% in coordination of care (as documented) at patient's floor/unit and/or counseling patient: I spent 105 minutes overall addressing this case: 15 min in medical data review/discussion with referring provider(s) and/or preparation for the visit 15 min in direct interaction with the patient/exam 45 min in Advance Care Planning/Goals of Care discussions as detailed above in note (must be >16min) 15 min in subsequent review and synthesis of assessment and plan 15 min communicating with other providers regarding the patient's case: Advanced Care Planning 77624 Advanced Care Planning 30 Min 97594 Advanced Care Planning Additional 30 [place] [address] IN/OBS CONSULT LVL 5,80M (25 - SIGNIFICANT, SEPARATELY IDENTIFIABLE ) Patient Type New History Comprehensive Exam Comprehensive Medical Decision Making High Complexity Diagnoses Cancer related pain G89.3 Palliative care by specialist Z51.5 Advanced care planning/counseling discussion Z71.89 Anxiety F41.9 Adenocarcinoma of lung C34.90 Acute and chronic respiratory failure with hypoxia J96.21 ILD (interstitial lung disease) J84.9 Additional Codes Advanced Care Planning - 83579 Advanced Care Planning 30 Min: 87477 Advanced Care Planning 30 Min ([id number]) Advanced Care Planning - 73192 Advanced Care Planning Additional 30 Min: 88648 Advanced Care Planning Additional 30 Min ([id number])
[2024-02-10] MEDS ORDERED: HYDROmorphone INJ 1 MG/ML SYRINGE IV PRN (14:06)
[2024-02-10] MEDS ORDERED: HYDROmorphone INJ 0.5 MG/0.5 ML SYR IV PRN (14:06)
[2024-02-10] MEDS: oxyCODONE HCL IR 5 MG TAB (IMMEDIATE RELEASE) PO ONE (14:28)
[2024-02-10] MEDS ORDERED: SODIUM CHLOR 7% 4 ML NEB NEB PRN (14:47)
[2024-02-10] MEDS ORDERED: ALBUT/IPRATROP 3MG/0.5MG NEB 3 ML VIAL NEB PRN (14:47)
[2024-02-10] MEDS: oxyCODONE HCL IR 5 MG TAB (IMMEDIATE RELEASE) PO SCH (20:55)
--- NOTE | 2024-02-10 22:46 | Hospitalist Progress Note ---
Date of Service February 10, 2024 Assessment & Plan (1) Acute and chronic respiratory failure with hypoxia: Plan: imaging of lung suggests baseline COPD, multifocal pneumonia and probable metastatic cancer pt with history of Idiopathic pulmonary fibrosis with restrictive PFT per senior care records there is a liver lesion and possible need for pulmonary evaluation as we do not yet have a tissue diagnosis, CEA is markedly elevated suggesting adenocarcinoma origin Interventional radiology will be ordered for 02/06/2024- Going to hold Lovenox in the evening of 02/04 for possible IR procedure on 02/05 this will need to be renewed as 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 Patient declined. Given concern for hypoxia, unsure of patient's disposition. Consulted pulmonary: s/p thoracocenthesis. continues to require high amount of oxygen. pathology now showing: adenocarcinoma of lung. consult palliative care. unable to do pleural catheter WIll be transitioning him to hospice. Needs concentrator which will not be available until next week. (2) Pneumonia: Plan: Multifocal pneumonia, concern for post obstructive, gram negative pneumonia CT suggest metastatic disease progressed from outpt CT of 12/07/23 including skeletal and liver mets -Follow cultures sent from ER -Azithromycin and Cefepime -negative MRSA nares Consult pulmonary, However patient likely has tumor causing his marked hypoxia Plan Hypertension - blood pressure adequately controlled -Continue Amlodipine 10mg po daily Hypothyroidism - chronic. stable -Continue home Synthroid 88mcg DM -Hold home Metformin and Glipizide -ISS -Goal blood sugar 110 - 140 GERD - chronic, stable -Protonix 40mg po daily while admitted -Resume home Omeprazole on DC Code - DNR/DNI per discussion with patient Admission and Anticipated Discharge Date Admission Date: February 03, 2024 Subjective 73 yo male reports no new symptoms. Review of Systems Review of Systems: All systems reviewed & are unremarkable except as noted in HPI & below Physical Exam Physical Exam: Patient has poor air movement bilaterally Abdomen is without hepatomegaly soft and nontender He has no particular bone pain to palpation Card exam is tachycardic Results & Data Results & Data Vital Signs (Past 12 Hours) Vital Signs Temp Pulse Pulse Pulse Resp BP BP 02/10/24 20:28 121 H 19 122/71 02/10/24 16:30 36.4 C L 120 H 19 147/79 H 02/10/24 16:04 114 H 02/10/24 14:43 115 H 18 02/10/24 14:31 02/10/24 12:12 36.8 C 126 H 20 129/83 02/10/24 11:19 02/10/24 11:18 Pulse Ox Pulse Ox O2 Del Method O2 Del Method O2 Flow Rate O2 Flow Rate 02/10/24 20:28 92 High Flow Nasal Cannula 9 02/10/24 16:30 97 High Flow Nasal Cannula 02/10/24 16:04 02/10/24 14:43 93 Nasal Cannula 9 02/10/24 14:31 92 High Flow Nasal Cannula 9 02/10/24 12:12 94 High Flow Nasal Cannula 02/10/24 11:19 88 L High Flow Nasal Cannula 10 02/10/24 11:18 84 L High Flow Nasal Cannula 8 PG Care Time/CCT Total # of Minutes Spent Total Time Spent with Patient: Total time spent is greater than 50% in coordination of care (as documented) at patient's floor/unit and/or counseling patient: Coding Level of Care Code 23020 SUB INP/OBS CARE 2/35MIN Diagnoses Acute and chronic respiratory failure with hypoxia J96.21 Pneumonia J18.9
--- NOTE | 2024-02-11 11:18 | Hospitalist Progress Note ---
Date of Service February 11, 2024 Assessment & Plan (1) Acute and chronic respiratory failure with hypoxia: Plan: imaging of lung suggests baseline COPD, multifocal pneumonia and probable metastatic cancer pt with history of Idiopathic pulmonary fibrosis with restrictive PFT per intermediate records there is a liver lesion and possible need for pulmonary evaluation as we do not yet have a tissue diagnosis, CEA is markedly elevated suggesting adenocarcinoma origin Interventional radiology will be ordered for 02/06/2024- Going to hold Lovenox in the evening of 02/04 for possible IR procedure on 02/05 this will need to be renewed as 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 Patient declined. Given concern for hypoxia, unsure of patient's disposition. Consulted pulmonary: s/p thoracocenthesis. continues to require high amount of oxygen. pathology now showing: adenocarcinoma of lung. consult palliative care: transitioned to comfort case unable to do pleural catheter WIll be transitioning him to hospice. Needs concentrator which will not be available until next week. (2) Pneumonia: Plan: Multifocal pneumonia, concern for post obstructive, gram negative pneumonia CT suggest metastatic disease progressed from outpt CT of 12/07/23 including skeletal and liver mets -Follow cultures sent from ER -Azithromycin and Cefepime -negative MRSA nares Consult pulmonary, However patient likely has tumor causing his marked hypoxia Plan Hypertension - blood pressure adequately controlled -Continue Amlodipine 10mg po daily Hypothyroidism - chronic. stable -Continue home Synthroid 88mcg DM -Hold home Metformin and Glipizide -ISS -Goal blood sugar 110 - 140 GERD - chronic, stable -Protonix 40mg po daily while admitted -Resume home Omeprazole on DC Code - DNR/DNI per discussion with patient Admission and Anticipated Discharge Date Admission Date: February 03, 2024 Subjective Patient appears comfortable. He has no new symptoms. Review of Systems Review of Systems: All systems reviewed & are unremarkable except as noted in HPI & below Physical Exam Physical Exam: Patient has poor air movement bilaterally Abdomen is without hepatomegaly soft and nontender He has no particular bone pain to palpation Card exam is tachycardic Results & Data Results & Data Vital Signs (Past 12 Hours) Vital Signs Temp Pulse Resp BP Pulse Ox O2 Del Method O2 Flow Rate 02/11/24 08:15 36.4 C L 117 H 20 118/68 90 High Flow Nasal Cannula 8 PG Care Time/CCT Total # of Minutes Spent Total Time Spent with Patient: Total time spent is greater than 50% in coordination of care (as documented) at patient's floor/unit and/or counseling patient: Coding Level of Care Code 32799 SUB INP/OBS CARE 2/35MIN Diagnoses Acute and chronic respiratory failure with hypoxia J96.21 Pneumonia J18.9
--- NOTE | 2024-02-12 22:27 | Hospitalist Progress Note ---
Date of Service February 12, 2024 Assessment & Plan (1) Acute and chronic respiratory failure with hypoxia: Plan: imaging of lung suggests baseline COPD, multifocal pneumonia and probable metastatic cancer pt with history of Idiopathic pulmonary fibrosis with restrictive PFT per correction records there is a liver lesion and possible need for pulmonary evaluation as we do not yet have a tissue diagnosis, CEA is markedly elevated suggesting adenocarcinoma origin Interventional radiology will be ordered for 02/06/2024- Going to hold Lovenox in the evening of 02/04 for possible IR procedure on 02/05 this will need to be renewed as 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 Patient declined. Given concern for hypoxia, unsure of patient's disposition. Consulted pulmonary: s/p thoracocenthesis on 02/05 continues to require high amount of oxygen: now 6 liters nasal cannula, pathology now showing: adenocarcinoma of lung. consult palliative care: transitioned to comfort case unable to do pleural catheter due to location of pleural fluid. may consider repeat x ray if patient decompensayes. transitioning him to hospice at discharge. Needs concentrator which will not be available until next week when ordered on 02/13. (2) Pneumonia: Plan: Multifocal pneumonia, concern for post obstructive, gram negative pneumonia CT suggest metastatic disease progressed from outpt CT of 12/07/23 including skeletal and liver mets -Follow cultures sent from ER -Azithromycin and Cefepime -negative MRSA nares Consult pulmonary, However patient likely has tumor causing his marked hypoxia Plan Hypertension - blood pressure adequately controlled -Continue Amlodipine 10mg po daily Hypothyroidism - chronic. stable -Continue home Synthroid 88mcg DM -Hold home Metformin and Glipizide -ISS -Goal blood sugar 110 - 140 GERD - chronic, stable -Protonix 40mg po daily while admitted -Resume home Omeprazole on DC Code - DNR/DNI per discussion with patient Admission and Anticipated Discharge Date Admission Date: February 03, 2024 Subjective Patient is comfortable. Physical Exam Physical Exam: Patient has poor air movement bilaterally Abdomen is without hepatomegaly soft and nontender He has no particular bone pain to palpation Card exam is tachycardic PG Care Time/CCT Total # of Minutes Spent Total Time Spent with Patient: Total time spent is greater than 50% in coordination of care (as documented) at patient's floor/unit and/or counseling patient: Coding Level of Care Code 61544 SUB INP/OBS CARE 2/35MIN Diagnoses Acute and chronic respiratory failure with hypoxia J96.21 Pneumonia J18.9
--- NOTE | 2024-02-13 09:10 | Hospitalist Progress Note ---
Date of Service February 13, 2024 Assessment & Plan (1) Acute and chronic respiratory failure with hypoxia: Plan: imaging of lung suggests baseline COPD, multifocal pneumonia and probable metastatic cancer pt with history of Idiopathic pulmonary fibrosis with restrictive PFT per intermediate records there is a liver lesion and possible need for pulmonary evaluation as we do not yet have a tissue diagnosis, CEA is markedly elevated suggesting adenocarcinoma origin Interventional radiology will be ordered for 02/06/2024- Going to hold Lovenox in the evening of 02/04 for possible IR procedure on 02/05 this will need to be renewed as 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 Patient declined. Given concern for hypoxia, unsure of patient's disposition. Consulted pulmonary: s/p thoracocenthesis on 02/05 continues to require high amount of oxygen: now 6 liters nasal cannula, pathology now showing: adenocarcinoma of lung. consult palliative care: transitioned to comfort case unable to do pleural catheter due to location of pleural fluid. may consider repeat x ray if patient decompensayes. transitioning him to hospice at discharge. Needs concentrator which will not be available until next week when ordered on 02/13. (2) Pneumonia: Plan: Multifocal pneumonia, concern for post obstructive, gram negative pneumonia CT suggest metastatic disease progressed from outpt CT of 12/07/23 including skeletal and liver mets -Follow cultures sent from ER -Azithromycin and Cefepime completed course -negative MRSA nares Consult pulmonary, However patient likely has tumor causing his marked hypoxia Plan Hypertension - blood pressure adequately controlled -Continue Amlodipine 10mg po daily Hypothyroidism - chronic. stable -Continue home Synthroid 88mcg DM -Hold home Metformin and Glipizide -ISS -Goal blood sugar 110 - 140 GERD - chronic, stable -Protonix 40mg po daily while admitted -Resume home Omeprazole on DC Code - DNR/DNI per discussion with patient Admission and Anticipated Discharge Date Admission Date: February 03, 2024 Results & Data Results & Data Vital Signs (Past 12 Hours) Vital Signs Pulse Resp BP Pulse Ox O2 Del Method O2 Flow Rate 02/13/24 09:05 112 H 20 138/79 89 L High Flow Nasal Cannula 6 PG Care Time/CCT Total # of Minutes Spent Total Time Spent with Patient: Total time spent is greater than 50% in coordination of care (as documented) at patient's floor/unit and/or counseling patient: Coding Diagnoses Acute and chronic respiratory failure with hypoxia J96.21 Pneumonia J18.9
--- NOTE | 2024-02-13 15:45 | Discharge Summary ---
Discharge Summary Date of Service February 13, 2024 Principal Dx & Hospital Course #1 = Principal Diagnosis (1) Acute and chronic respiratory failure with hypoxia: imaging of lung suggests baseline COPD, multifocal pneumonia and now confirmed metastatic lung cancer(adenocarcinoma) to liver and bone pt with history of Idiopathic pulmonary fibrosis with restrictive PFT per residential records -Continue supplemental O2 - goal saturation 88-90%, given progressed cancer and decision for palliative care will treat further hypoxia with symptom based medication understanding that we may not be able to acheive higher oxygen levels -DuoNeb q4R -Continue Albuterol PRN -Continue Advair 500/50 BID -Continue Umeclidinium Given the concern for malignancy with bony mets, previous provider asked to inform his family during this stay, Patient declined. Consulted pulmonary: s/p thoracocenthesis on 02/05 IR liver biopsy both show pathology cw: adenocarcinoma of lung. consult palliative care: transitioned to comfort case unable to do pleural catheter due to location of pleural fluid. may consider repeat x ray if patient decompensayes. transitioning him to hospice at discharge. (2) Pneumonia: Multifocal pneumonia, concern for post obstructive, gram negative pneumonia CT suggest metastatic disease progressed from outpt CT of 12/07/23 including skeletal and liver mets -Azithromycin and Cefepime completed course -negative MRSA nares Plan Hypertension - blood pressure adequately controlled -Continue Amlodipine 10mg po daily Hypothyroidism - chronic. stable -Continue home Synthroid 88mcg DM -Hold home Metformin and restart Glipizide at lower level follow for need to increase GERD - chronic, stable -Resume home Omeprazole on DC Code - DNR/DNI per discussion with patient Notes For Next Care Provider watch blood sugar only treating with very high, try to limit metformin due to liver involvement of tumor expectation of progression of disease and worsening respiratory status Admission HPI Per Admitting Provider Rene Cronin is a 73yo male with history of COPD, Pulmonary fibrosis as well as DM, HTN, Hypothyroidism and GERD presenting with acute on chronic respiratory failure with hypoxia. Patient wears 5L of supplemental O2 by [place] at baseline. He was seen in the [facility] today with complaint of cough productive for thick, white sputum and worsening shortness of breath. He denies fever, chills, orthopnea, chest pain, palpitations, edema or weight gain. He has some mid-back pain, occasionally worsened with deep breathing. Saturations reportedly 70% on 5L at [facility] which prompted him to come to the ER. Patient endorses occasional chills as well as unintentional weight loss (unable to quantify). He was told that he "has cancer somewhere" but they don't know where. He states that this is based on a blood test that was performed. Possibly a liver lesion "a shadow" but patient does not know complete details. He is to have a repeat CT scan in the coming weeks. He has been on supplemental O2 for at least 3 months. Former tobacco use - 1.5ppd x 57 years In the ER patient initially saturating well on 10L Oxymask - attempt to decrease to his baseline 5L resulted in hypoxia, sats decreased to 86% ER Course: Cefepime Discharge Exam Patient is awake and alert with angel discussion regarding his metastatic adenocarcinoma. At this time he is not interested in active treatment he is pursuing comfort care measures Decreased breath sounds at the base worse on the right no defined organomegaly although no liver involvement Updated Medication List Medication Instructions Recorded Confirmed Type albuterol sulfate 90 mcg/actuation 2 puff inhalation QID PRN 02/03/24 02/03/24 History aerosol inhaler Shortness Of Breath Or Wheezing amlodipine 10 mg tablet 10 mg PO DAILY 02/03/24 02/03/24 History docusate sodium 100 mg capsule 100 mg PO BID 02/03/24 02/03/24 History fluticasone 500 mcg-salmeterol 50 1 inh inhalation BID 02/03/24 02/03/24 History mcg/dose blistr powdr for inhalation (Alexis Gimenezub) guaifenesin 400 mg tablet 400 mg PO TID 02/03/24 02/03/24 History ibuprofen 600 mg tablet 600 mg PO TID PRN Pain 02/03/24 02/03/24 History levothyroxine 88 mcg tablet 88 mcg PO DAILY 02/03/24 02/03/24 History omeprazole 20 mg tablet,delayed 20 mg PO DAILY 02/03/24 02/03/24 History release oxycodone 5 mg tablet 10 mg PO TID 02/03/24 02/03/24 History umeclidinium 62.5 mcg/actuation 1 inh inhalation DAILY 02/03/24 02/03/24 History blister powder for inhalation (Incruse Ellipta) Oxygen Home #6 L 02/13/24 Rx glipizide 10 mg tablet 5 mg (1/2 x 10 mg) PO DAILY #0 tabs 02/13/24 02/03/24 Rx ipratropium 0.5 mg-albuterol 3 mg 3 ml NEB Q4R PRN shortness of 02/13/24 Rx (2.5 mg base)/3 mL nebulization breath #30 mL soln Hospital Stay Data Consultations 02/03/24 23:07 ED Decision to Admit Stat 02/04/24 06:06 Consult Oncology Routine 02/06/24 07:59 Consult Pulmonology Routine 02/08/24 21:59 Consult Palliative Care Routine Diagnostic Imagining Performed 02/03/24 23:38 CT chest diagnostic wo con Stat 02/04/24 06:06 CT Abd and Pelvis [CT abd pelvis oral and IV con] Routine 02/06/24 08:12 US point of care ultrasound Urgent 02/07/24 08:00 IR biopsy liver US Routine 02/09/24 10:38 US point of care ultrasound Urgent Pending Results Patient Have Any Pending Studies at Discharge: No Discharge Instructions Given to Patient (Per Discharging Provider) The pt has metastatic cancer and at this time does not seem interested in treatment to prolong life. He is on 6 liters of oxygen and his condition, without treatment, will progress, he has discussed with the palliative care team a desire to be in a comfort care mode, which as he progresses will focus on symptom management. Total Time Total Time Spent Total Time Spent (In Minutes): It required greater than 30 minutes to prepare this patient for discharge. Coding Level of Care Code 14793 INP/OBS DISCH >30 MIN Diagnoses Acute and chronic respiratory failure with hypoxia J96.21 Pneumonia J18.9
== END 2024-02-13 15:29 | DRG 981 ==
LOC: ED 21:20 → 4W 23:38 → SUATTDRO 23:38 → 4W 02-04 01:30 → 3E 02-11 13:11